=== PATIENT | male | born 1955 | race Caucasian/White ===

== ENCOUNTER 2018-07-30 16:18 | Emergency (ER) | payer OTHER ==
[2018-07-30 16:53] VITALS: BP 116/80; PULSE 92; TEMP 98.5; BMI 24.2
--- NOTE | 2018-07-30 19:10 | PDOC ---
Attending Attestation - Resident Resident Name: Daren Ford - ED Attending Attestation I have performed the following: I have examined & evaluated the patient, The case was reviewed & discussed with the resident, I agree w/resident's findings & plan, Exceptions are as noted - Medical Decision Making 07/30/18 19:10 I, Dr. Camille Burger, DO, attest that this document has been prepared under my direction and personally reviewed by me in its entirety. I further attest, that it accurately reflects all work, treatment, procedures and medical decision -making performed by me. 07/30/18 20:20 a/p: 62yo male with b/l calf pain-dx [address] rowe with a dvt- lower leg -worsening calf pain and leg pain -also with burn to the foot -out of his lyrica -sent by PMD for repeat duplex ultrasound to see if there was propogation of the clot 07/30/18 22:12 dvt study negative burn to L big toe also hx of neuropathy and out of lyrica at home will give silvadene topical for the toe- no infection will refill lyrica resident discussed the case with Dr. Wilson who agrees with [facility] plan pt is stable for dc to home <Camille Burger - Last Filed: 07/30/18 22:12> - HPI HPI: 07/30/18 20:51 Patient is a 62 year old male with a significant past medical history of diabetes, hypertension, hyperlipidemia, BPH, s/p cardiac stents, and cholecystectomy, who presents to the ED with complaints of right groin pain as well as left foot burn that occured 1 week ago. Patient reports spilling hot water on his left foot, causing second degree burning which he states he cleans with soap and water. He reports having cardiac stents placed x15 days ago at [facility]. Patient reports seeing primary care physician Dr. Wilson who advised he come into the ED for further evaluation for the left foot burning. Patient was diagnosed with DVT by Dr. Rowe bu treated with aspirin. Denies chest pain, sob. Denies nausea, vomiting. Denies dysuria, hematuria. Denies contact with sick individuals, out of state travelling. Denies any other symptoms. Allergies: Iodine Social history: No smoking. No alcohol. No illicit drugs. Surgical history:Cardiac stents PMD: Dr. Wilson - Physicial Exam PE: 07/30/18 20:51 Constitutional: Awake, alert, oriented. No acute distress. Head: Normocephalic. Atraumatic Eyes: PERRL. EOMI. Conjunctivae are not pale. ENT: Mucous membranes are moist and intact. Posterior pharynx without exudate or erythema. Uvula midline. Neck: Supple. Full ROM. No lymphadenopathy. Cardiovascular: Regular rate. Regular rhythm. S1, S2 regular. Distal pulses are 2+ and symmetric. Pulmonary/Chest: No evidence of respiratory distress. Clear to auscultation bilaterally No wheezing, rales or rhonchi. Abdominal: Soft and nondistended. There is no tenderness. No rebound, guarding or rigidity. No organomegaly. No palpable masses. Good bowel sounds. Groin: +Right groid ecchymosis. No bruits. No palpable aneurysm. Back: No CVA tenderness. Musculoskeletal: No edema. No cyanosis. No clubbing. Full range of motion in all extremities. No Calf tenderness. Radial/pedal pulses are intact and 2+ bilaterally Skin: +second degree Burn to left big toe. +healing. +No drainage. Skin is warm and dry. No petechiae. No purpura. Neurological: Alert and oriented to person, place, and time. Cranial nerves II -XII are grossly intact. Normal speech. Strength is grossly symmetric. No sensory deficits. Psychiatric: Good eye contact. Normal interaction, affect and behavior. <Ananda Omer - Last Filed: 07/30/18 22:15>
--- NOTE | 2018-07-30 19:32 | PDOC ---
History of Present Illness - General Chief Complaint: Burn Stated Complaint: Sent by PMD for left foot burn, groin pain Time Seen by Provider: 07/30/18 19:08 - History of Present Illness Initial Comments: The pt is a 62M w/ a history of T2DM, CAD s/p stents, HTN, and neuropathy, is also 15 days s/p stent placement at [facility] presents for evaluation of R groin pain and L foot burn that occurred 1 week ago. Pt tried to see [employer] who performed the procedure but was unable to do so because he stated the [employer] doesn't work there anymore. Saw Dr. Wilson today to recommended he proceed to ED for evaluation for L foot burn to hallux and dorsal surface of foot as well as R groin bruising. Pt reports bruising in R groin after cath which has been improving but continues to be painful and he notices a lump there. Denies wound drainage. L foot burn 1 week ago from hot water with shoe on. Has been washing daily with soap and water, dressing with Vaseline and gauze. Endorses history of BLE DVT Currently taking ASA and Plavix Was taking Lyrica for neuropathy but ran out and hasn't had it renewed Denies fevers/chills, chest pain, SOB, abdominal pain, N/V/C/D, dysuria 07/30/18 19:38 Past History - Past Medical History Allergies/Adverse Reactions: Allergies Allergy/AdvReac Type Severity Reaction Status Date / Time iodine Allergy Verified 07/30/18 16:53 Home Medications: Ambulatory Orders Atorvastatin Calcium 40 mg PO HS 03/09/15 Insulin (Levemir) [Levemir Flexpen -] 20 units SQ HS 03/09/15 Losartan Potassium [Cozaar] 50 mg PO DAILY 03/09/15 Sitagliptin Phos/Metformin HCl [Janumet 50-1,000 mg Tablet] 1 tab PO DAILY 03/09 Tamsulosin HCl [Flomax -] 0.4 mg PO DAILY 03/09/15 Clopidogrel Bisulfate [Plavix -] 75 mg PO DAILY 11/06/15 Cyclobenzaprine HCl [Flexeril -] 5 mg PO BID #10 tablet 11/06/15 Pregabalin [Lyrica -] 50 mg PO BID #28 capsule MDD 100 mg 03/20/19 Anemia: No Asthma: No Cancer: No Cardiac Disorders: Yes (stent 2018) COPD: No Diabetes: Yes Disorders: Yes (BPH) HTN: Yes Hypercholesterolemia: Yes - Surgical History Cardiac Surgery: Yes (stents) Cholecystectomy: Yes - Immunization History Td Vaccination: No - Suicide/Smoking/Psychosocial Hx Smoking Status: Yes Smoking History: Current every day smoker Have you smoked in the past 12 months: Yes Number of Cigarettes Smoked Daily: 20 Information on smoking cessation initiated: Yes 'Breaking Loose' booklet given: 03/09/15 Hx Alcohol Use: No Drug/Substance Use Hx: No Substance Use Type: None Hx Substance Use Treatment: No Review of Systems - Review of Systems Able to Perform ROS?: Yes Comments:: GENERAL/CONSTITUTIONAL: No fever or chills. No weakness HEAD, EYES, EARS, NOSE AND THROAT: No change in vision or hearing. No sore throat CARDIOVASCULAR: No chest pain or shortness of breath RESPIRATORY: Denies cough, hemoptysis GASTROINTESTINAL: No nausea, vomiting, diarrhea or constipation GENITOURINARY: No dysuria, frequency, or change in urination MUSCULOSKELETAL: +chronic BLE pain ('electric') NEUROLOGIC: No headache, vertigo, loss of consciousness, or change in strength/ sensation ENDOCRINE: No increased thirst. No abnormal weight change HEMATOLOGIC/LYMPHATIC: +hx of DVT ALLERGIC/IMMUNOLOGIC: No hives or skin allergy 07/30/18 20:00 Is the patient limited Romansh proficient: No *Physical Exam - Vital Signs Last Vital Signs Temp Pulse Resp BP Pulse Ox 98.5 F 92 H 19 116/80 100 07/30/18 16:51 07/30/18 16:51 07/30/18 16:51 07/30/18 16:51 07/30/18 16:51 - Physical Exam Comments: GENERAL: Awake, alert, and oriented to person/place/time, in no acute distress HEAD: No signs of trauma, normocephalic, atraumatic EYES: PERRLA, EOMI, sclera anicteric, conjunctiva clear ENT: Hearing grossly normal, nares patent, oropharynx clear without exudates. Moist mucosa LUNGS: No distress, speaks full sentences, clear to auscultation bilaterally HEART: Regular rate and rhythm, normal S1 and S2, no murmurs appreciated ABDOMEN: Soft, nontender, normoactive bowel sounds. No guarding, no rebound; R groin ecchymosis w/ palpable nodule w/o pusitile mass EXTREMITIES: L hallux and dorsum of food deep partial thickness burn w/ sensation to light touch intact; 1+ BLE DP/PT NEUROLOGICAL: Cranial nerves II through XII grossly intact. Normal speech, normal gait, no focal sensorimotor deficits SKIN: Warm, Dry, normal turgor, no rashes or lesions noted_ Pt ambulatory in ED 07/30/18 19:57 Moderate Sedation - Procedure Monitoring Vital Signs: Procedure Monitoring Vital Signs Temperature 98.5 F 07/30/18 16:51 Pulse Rate 92 H 07/30/18 16:51 Respiratory Rate 07/30/18 16:51 Blood Pressure 116/80 07/30/18 16:51 O2 Sat by Pulse Oximetry (%) 100 07/30/18 16:51 ED Treatment Course - LABORATORY CBC & Chemistry Diagram: 07/30/18 20:00 07/30/18 20:00 Medical Decision Making - Medical Decision Making The pt is a 62M w/ a history of T2DM, neuropathy, s/p stent placement and hx of DVT presents for evaluation of R groin pain and L foot deep partial thickness burn (<1% TBSA) Labs sent Will obtain BLE US Will dress wound with silvadene and kirlex 07/30/18 20:31 No anemia No leukocytosis No VIANNEY 07/30/18 21:27 BLE US w/o evidence of DVT 07/30/18 21:40 Wound dressed with Silvadene and kirlex Wound care instructions and return precautions given Plan for D/C w/ PCP f/u Pt in agreement and verbalized understanding Dispo: home 07/30/18 22:11 *DC/Admit/Observation/Transfer Diagnosis at time of Disposition: Burn - Discharge Dispostion Disposition: HOME Condition at time of disposition: Stable Decision to Admit order: No - Prescriptions Prescriptions: Pregabalin [Lyrica -] 50 mg PO BID #28 capsule MDD 100 mg - Referrals Referrals: Oh Noel MD [Primary Care Provider] - - Patient Instructions Printed Discharge Instructions: How to Take Care of a Burn Additional Instructions: You were seen in the Emergency Department for evaluation of groin pain and a burn. Your ultrasound was negative for DVT. Continue to wash the wound daily with soap and water. Pat dry. Apply the silvadene followed by gauze. Follow up with your primary care provider within a week. A prescription was sent to the pharmacy that you specified for Lyrica for 50mg PO twice a day. Return to the Emergency Department if you develop fevers/chills, drainage from the wound, acute change in sensation, chest pain, trouble breathing, worsening symptoms, or any new/concerning symptoms. - Post Discharge Activity
[2018-07-30] MEDS ORDERED: ACETAMINOPHEN 325 MG TABLET (FP) PO ONE (19:48)
[2018-07-30] MEDS ORDERED: ACETAMINOPHEN 325 MG TABLET (FP) ONE (19:52)
[2018-07-30 20:21] LABS: HEMATOCRIT 40.1 % (35.4-49); HEMOGLOBIN 13.5 GM/dL (11.7-16.9); MCH 28.4 pg (25.7-33.7); MCHC 33.7 g/dl (32.0-35.9); MEAN CELL VOLUME 84.4 fl (80-96); MEAN PLT VOLUME 11.2 fl (7.5-11.1); PLATELET COUNT 124 K/MM3 (134-434); RBC 4.75 M/mm3 (4.00-5.60); RDW 14.5 % (11.9-15.9); WHITE BLOOD COUNT 11.1 K/mm3 (4.0-10.0)
[2018-07-30 20:48] LABS: ALBUMIN 3.8 g/dl (3.4-5.0); ALK PHOS 85 U/L (45-117); ANION GAP 6 MMOL/L (8-16); BILIRUBIN,TOTAL 0.3 mg/dL (0.2-1); BLOOD UREA NITROGEN 16 mg/dL (7-18); CALCIUM 9.2 mg/dL (8.5-10.1); CHLORIDE 105 mmol/L (98-107); CO2 27 mmol/L (21-32); CREATININE 0.8 mg/dL (0.55-1.3); GLUCOSE,RANDOM 261 mg/dL (74-106); POTASSIUM 4.3 mmol/L (3.5-5.1); SGOT/AST 11 U/L (15-37); SGPT/ALT 18 U/L (13-61); SODIUM 138 mmol/L (136-145); TOT PROT 7.3 g/dl (6.4-8.2)
[2018-07-30] MEDS ORDERED: SILVER SULFADIAZINE 1% TOP CREAM 400 GM JAR TP ONE (21:41)
[2018-07-30] MEDS ORDERED: SILVER SULFADIAZINE 1% TOP CREAM 50 GM JAR TP ONE (21:43)
[2018-07-30] MEDS ORDERED: PREGABALIN 50 MG CAPSULE PO ONE (22:12)
[2018-07-30] MEDS ORDERED: PREGABALIN 50 MG CAPSULE ONE (22:13)
[2018-07-31] MEDS ORDERED: SILVER SULFADIAZINE 1% TOP CREAM 400 GM JAR TP ONE (21:41)
== END 2018-07-30 22:31 | disposition home or self-care (01) ==
LOC: JER 16:18
DX: K12.0 Recurrent oral aphthae (principal)
CPT/HCPCS: 36415; 80053; 85027; 93970-TC; 99281-25

== ENCOUNTER 2018-09-17 15:01 | Inpatient (IN) | payer OTHER ==
--- NOTE | 2018-09-17 15:13 | PDOC ---
Rapid Medical Evaluation Time Seen by Provider: 09/17/18 15:11 Medical Evaluation: Allergies Allergy/AdvReac Type Severity Reaction Status Date / Time iodine Allergy Verified 09/17/18 15:11 09/17/18 15:11 HPI:L foot pain snet by PCP for CTA of aorta with run off EXAM: No gross deficits ORDERS: CBC CMP PIV Discharge Disposition - Diagnosis Foot pain, left - Referrals - Patient Instructions - Post Discharge Activity
[2018-09-17 15:16] VITALS: BMI 24.0
[2018-09-17 16:31] LABS: BASO % 0.6 % (0-2.0); EOS % 0.4 % (0-4.5); HEMATOCRIT 42.8 % (35.4-49); HEMOGLOBIN 13.7 GM/dL (11.7-16.9); LYMPH % 34.9 % (8-40); MCH 26.8 pg (25.7-33.7); MCHC 31.9 g/dl (32.0-35.9); MEAN CELL VOLUME 83.9 fl (80-96); MEAN PLT VOLUME 10.8 fl (7.5-11.1); MONO % 9.3 % (3.8-10.2); NEUT % 54.8 % (42.8-82.8); PLATELET COUNT 93 K/MM3 (134-434); RDW 15.3 % (11.9-15.9); WHITE BLOOD COUNT 8.7 K/mm3 (4.0-10.0)
[2018-09-17 16:51] LABS: INR 1.02 (0.83-1.09)
[2018-09-17 16:53] LABS: ACTIVATED PTT 31.2 SECONDS (25.2-36.5)
[2018-09-17 17:16] LABS: ALK PHOS 78 U/L (45-117); ANION GAP 7 MMOL/L (8-16); BILIRUBIN,TOTAL 0.3 mg/dL (0.2-1); BLOOD UREA NITROGEN 13 mg/dL (7-18); CALCIUM 8.9 mg/dL (8.5-10.1); CHLORIDE 106 mmol/L (98-107); CO2 26 mmol/L (21-32); CREATININE 0.9 mg/dL (0.55-1.3); POTASSIUM 4.5 mmol/L (3.5-5.1); SGOT/AST 8 U/L (15-37); SGPT/ALT 22 U/L (13-61); SODIUM 138 mmol/L (136-145)
[2018-09-17 17:21] LABS: GLUCOSE,RANDOM 331 mg/dL (74-106)
--- NOTE | 2018-09-17 17:53 | PDOC ---
*Physical Exam - Vital Signs Last Vital Signs Temp Pulse Resp BP Pulse Ox 98.0 F 91 H 17 125/64 99 09/17/18 15:11 09/17/18 15:11 09/17/18 15:11 09/17/18 15:11 09/17/18 15:11 - Physical Exam Comments: 09/17/18 17:53 The patient was examined by [NINI Murdock] under my direct supervision. I personally evaluated the patient. I concur with the above findings and the plan of care. ED Treatment Course - LABORATORY CBC & Chemistry Diagram: 09/17/18 16:00 09/17/18 16:00 - ADDITIONAL ORDERS Additional order review: Laboratory Results 09/17/18 09/17/18 16:00 16:00 PT with INR 12.00 INR 1.02 PTT (Actin FS) 31.2 Sodium 138 Potassium 4.5 Chloride 106 Carbon Dioxide 26 Anion Gap 7 L BUN 13 Creatinine 0.9 Est GFR (CKD-EPI)AfAm 105.72 Est GFR (CKD-EPI)NonAf 91.22 Random Glucose 331 H* Calcium 8.9 Total Bilirubin 0.3 AST 8 L ALT 22 Alkaline Phosphatase 78 Creatine Kinase 91 Troponin I < 0.02 Total Protein 7.0 Albumin 4.0 09/17/18 16:00 RBC 5.10 MCV 83.9 MCHC 31.9 L RDW 15.3 MPV 10.8 Neutrophils % 54.8 Lymphocytes % 34.9 Monocytes % 9.3 Eosinophils % 0.4 Basophils % 0.6 *DC/Admit/Observation/Transfer Diagnosis at time of Disposition: Foot pain, left - Referrals Referrals: Oh Noel MD [Primary Care Provider] - - Patient Instructions - Post Discharge Activity
--- NOTE | 2018-09-17 18:32 | PDOC ---
History of Present Illness - General Chief Complaint: Pain Stated Complaint: SENT BY PCP / FOOT PAIN Time Seen by Provider: 09/17/18 15:11 History Source: Patient Exam Limitations: Clinical Condition - History of Present Illness Initial Comments: 09/17/18 18:27 Patient with h/o CAD, cardiac stent an pheripheral vascular disease present with complains of being sent by vascular Dr. Rhodes due to persistent b/l LE pains for 6 months which has been worsening. Patient report pain to whole b/l lower extremity. Patient was seen 2 months ago for same symptoms and b/l duplex was negative. Patient report increased pain to to LE and called Dr. Reyna yesterday who advised him to come to ED for admission. Patient report he was told by Dr. Reyna symptoms. Denies CP, SOB, dizziness, numbness or tinglings sensation. Timing/Duration: other (6 months) Past History - Past Medical History Allergies/Adverse Reactions: Allergies Allergy/AdvReac Type Severity Reaction Status Date / Time iodine Allergy Verified 09/17/18 15:11 Home Medications: Ambulatory Orders Atorvastatin Calcium 40 mg PO HS 03/09/15 Insulin (Levemir) [Levemir Flexpen -] 20 units SQ BID 03/09/15 Losartan Potassium [Cozaar] 50 mg PO DAILY 03/09/15 Sitagliptin Phos/Metformin HCl [Janumet 50-1,000 mg Tablet] 500 mg PO DAILY Tamsulosin HCl [Flomax -] 0.4 mg PO DAILY 03/09/15 Clopidogrel Bisulfate [Plavix -] 75 mg PO DAILY 11/06/15 Cyclobenzaprine HCl [Flexeril -] 5 mg PO BID #10 tablet 11/06/15 Pregabalin [Lyrica -] 50 mg PO BID #28 capsule MDD 100 mg 07/30/18 Anemia: No Asthma: No Cancer: No Cardiac Disorders: Yes (stent 2018) COPD: No Diabetes: Yes Disorders: Yes (BPH) HTN: Yes Hypercholesterolemia: Yes - Surgical History Cardiac Surgery: Yes (stents) Cholecystectomy: Yes - Immunization History Td Vaccination: No - Suicide/Smoking/Psychosocial Hx Smoking Status: Yes Smoking History: Current every day smoker Have you smoked in the past 12 months: Yes Number of Cigarettes Smoked Daily: 10 Information on smoking cessation initiated: No 'Breaking Loose' booklet given: 03/09/15 Hx Alcohol Use: No Drug/Substance Use Hx: No Substance Use Type: None Hx Substance Use Treatment: No Review of Systems - Review of Systems Able to Perform ROS?: Yes Is the patient limited Mosotho proficient: No Constitutional: No: Chills, Fever, Night Sweats HEENTM: No: Symptoms Reported, See HPI, Eye Pain, Blurred Vision, Tearing, Recent change in vision, Double Vision, Cataracts, Ear Pain, Ocular Prothesis, Ear Discharge, Nose Pain, Nose Congestion, Tinnitus, Nose Bleeding, Hearing Loss , Throat Pain, Throat Swelling, Mouth Pain, Dental Problems, Difficulty Swallowing, Mouth Swelling, Other Respiratory: No: Symptoms reported, See HPI, Cough, Orthopnea, Shortness of Breath, SOB with Exertion, SOB at Rest, Stridor, Wheezing, Productive cough, Hemoptysis, Other Cardiac (ROS): No: Symptoms Reported, See HPI, Chest Pain, Edema, Irregular Heart Rate, Lightheadedness, Palpitations, Syncope, Chest Tightness, Other ABD/GI: No: Symptoms Reported : No: Symptoms Reported Musculoskeletal: Yes: Symptoms Reported, See HPI, Muscle Pain (b/l LE pains). No: Joint Swelling, Muscle Weakness (b/l LE extremities) Integumentary: Yes: Symptoms Reported, See HPI, Change in Color (redness to b/l feet . LT>rt) Neurological: No: Numbness, Paresthesia, Tingling All Other Systems: Reviewed and Negative *Physical Exam - Vital Signs Last Vital Signs Temp Pulse Resp BP Pulse Ox 98.0 F 91 H 17 125/64 99 09/17/18 15:11 09/17/18 15:11 09/17/18 15:11 09/17/18 15:11 09/17/18 15:11 - Physical Exam General Appearance: Yes: Nourished, Appropriately Dressed, Mild Distress HEENT: positive: Normal ENT Inspection Neck: positive: Supple Respiratory/Chest: positive: Lungs Clear, Normal Breath Sounds. negative: Respiratory Distress, Accessory Muscle Use Cardiovascular: positive: Regular Rhythm, Regular Rate Musculoskeletal: positive: Normal Inspection, Muscle Spasm (whole lower extremity tenderness on b/l side) Extremity: positive: Pedal Edema (mild left foot swelling), Calf Tenderness (b/l ). negative: Swelling Integumentary: positive: Erythema (b/l feet with increased redness to left feet) Neurologic: positive: Fully Oriented, Alert, Motor Strength 5/5 Deep Tendon Reflexes: Ankle (L): 2+, Ankle (R): 2+, Knee (L): 2+, Knee (R): 2+ ED Treatment Course - LABORATORY CBC & Chemistry Diagram: 09/17/18 16:00 09/17/18 16:00 - ADDITIONAL ORDERS Additional order review: Laboratory Results 09/17/18 09/17/18 16:00 16:00 PT with INR 12.00 INR 1.02 PTT (Actin FS) 31.2 Sodium 138 Potassium 4.5 Chloride 106 Carbon Dioxide 26 Anion Gap 7 L BUN 13 Creatinine 0.9 Est GFR (CKD-EPI)AfAm 105.72 Est GFR (CKD-EPI)NonAf 91.22 Random Glucose 331 H* Calcium 8.9 Total Bilirubin 0.3 AST 8 L ALT 22 Alkaline Phosphatase 78 Creatine Kinase 91 Troponin I < 0.02 Total Protein 7.0 Albumin 4.0 09/17/18 16:00 RBC 5.10 MCV 83.9 MCHC 31.9 L RDW 15.3 MPV 10.8 Neutrophils % 54.8 Lymphocytes % 34.9 Monocytes % 9.3 Eosinophils % 0.4 Basophils % 0.6 Medical Decision Making - Medical Decision Making 09/17/18 18:35 Patient with h/o CAD, cardiac stent an pheripheral vascular disease present with complains of being sent by vascular Dr. Rhodes due to persistent b/l LE pains for 6 months which has been worsening. Patient report pain to whole b/l lower extremity. Patient was seen 2 months ago for same symptoms and b/l duplex was negative. Patient report increased pain to to LE and called Dr. Reyna yesterday who advised him to come to ED for admission. Patient report he was told by Dr. Reyna symptoms. Denies CP, SOB, dizziness, numbness or tinglings sensation. Exam significant for moderate subjective diffused pain to whole b/l lower extremities. barely palpable pulse to dorsalis pedis b/l. called and spoke to vascular Dr. Reyna who report patient has been having worsening b/l claudication for 6 months with no palpable pulse during clinic visit yesterday and wants patient admitted for Abc CTA of Aorta with B/L LE run off. Called covering admitting provider for Dr. Noel who is being covered by Dr. Wilson who agrees to admit patient under her for CTA. *DC/Admit/Observation/Transfer Diagnosis at time of Disposition: Foot pain, left, Diabetes 1.5, managed as type 2, Claudication of both lower extremities - Discharge Dispostion Condition at time of disposition: Stable Decision to Admit order: Yes - Referrals Referrals: Oh Noel MD [Primary Care Provider] - - Patient Instructions - Post Discharge Activity
[2018-09-17] MEDS ORDERED: ACETAMINOPHEN 1000 MG/100 ML VIAL (NON FORMULARY) IVPB ONE (19:48)
[2018-09-17] MEDS ORDERED: ACETAMINOPHEN INJECTION 100 ML IVPB ONE (19:52)
[2018-09-17] MEDS ORDERED: PREGABALIN 50 MG CAPSULE ONE (22:02)
[2018-09-17] MEDS ORDERED: ATORVASTATIN CA 40 MG TABLET (FP) ONE (22:02)
[2018-09-17] MEDS ORDERED: HEPARIN NA (PORCINE) 5,000 UNITS/ML 1ML VIAL ONE (22:03)
[2018-09-17] MEDS ORDERED: INSULIN (LEVEMIR) 100 UNITS/ML UNITS SQ ONE (22:09)
[2018-09-17] MEDS ORDERED: INSULIN (NOVOLOG) ASPART 100 UNITS/ML 10ML VIAL ONE (22:10)
[2018-09-17] MEDS: HEPARIN NA (PORCINE) 5,000 UNITS/ML 1ML VIAL SQ SCH (22:18)
[2018-09-17] MEDS: INSULIN (LEVEMIR) 100 UNITS/ML UNITS SQ SCH (22:18)
[2018-09-17] MEDS: INSULIN SLIDING SCALE (NOVOLOG) 1 VIAL SQ SCH (22:18)
[2018-09-17] MEDS: ATORVASTATIN CA 40 MG TABLET (FP) PO SCH (22:18)
[2018-09-17] MEDS: PREGABALIN 50 MG CAPSULE PO SCH (22:18)
[2018-09-18] MEDS ORDERED: sitaGLIPtin PHOSPHATE 50 MG TABLET ONE (06:18)
[2018-09-18] MEDS ORDERED: metFORMIN HCL 500 MG TABLET (FP) ONE (06:18)
[2018-09-18] MEDS ORDERED: INSULIN (LEVEMIR) 100 UNITS/ML UNITS SQ ONE (06:29)
[2018-09-18] MEDS ORDERED: INSULIN (NOVOLOG) ASPART 100 UNITS/ML 10ML VIAL ONE ×2 (06:29→11:59)
[2018-09-18] MEDS: sitaGLIPtin PHOSPHATE 100 MG TABLET (FP) PO SCH (06:37)
[2018-09-18] MEDS: INSULIN SLIDING SCALE (NOVOLOG) 1 VIAL SQ SCH ×4 (06:37→21:19)
[2018-09-18] MEDS: metFORMIN HCL 500 MG TABLET (FP) PO SCH ×3 (06:37→17:41)
[2018-09-18] MEDS: INSULIN (LEVEMIR) 100 UNITS/ML UNITS SQ SCH ×2 (06:37→21:20)
[2018-09-18 07:16] LABS: BASO % 0.6 % (0-2.0); EOS % 1.1 % (0-4.5); HEMATOCRIT 39.9 % (35.4-49); HEMOGLOBIN 13.1 GM/dL (11.7-16.9); LYMPH % 39.3 % (8-40); MCH 27.2 pg (25.7-33.7); MCHC 32.9 g/dl (32.0-35.9); MEAN CELL VOLUME 82.8 fl (80-96); MEAN PLT VOLUME 10.6 fl (7.5-11.1); MONO % 10.2 % (3.8-10.2); NEUT % 48.8 % (42.8-82.8); PLATELET COUNT 117 K/MM3 (134-434); RBC 4.82 M/mm3 (4.00-5.60); RDW 15.2 % (11.9-15.9); WHITE BLOOD COUNT 7.8 K/mm3 (4.0-10.0)
[2018-09-18 07:42] LABS: ALBUMIN 3.7 g/dl (3.4-5.0); BILIRUBIN,TOTAL 0.3 mg/dL (0.2-1); CALCIUM 8.5 mg/dL (8.5-10.1); CREATININE 0.8 mg/dL (0.55-1.3); POTASSIUM 3.9 mmol/L (3.5-5.1); TOT PROT 6.4 g/dl (6.4-8.2)
[2018-09-18] MEDS: TAMSULOSIN HCL 0.4 MG CAP PO SCH (09:52)
[2018-09-18] MEDS: LOSARTAN POTASSIUM 50 MG TABLET (FP) PO SCH (10:00)
[2018-09-18] MEDS: HEPARIN NA (PORCINE) 5,000 UNITS/ML 1ML VIAL SQ SCH ×2 (10:00→21:22)
[2018-09-18] MEDS: CLOPIDOGREL BISULFATE 75 MG TABLET (FP) PO SCH (10:00)
[2018-09-18] MEDS ORDERED: PREGABALIN 50 MG CAPSULE ONE (10:02)
--- NOTE | 2018-09-18 16:01 | HP ---
Admitting History and Physical - Past Medical History Cardiovascular: Yes: CAD, HTN Endocrine: Yes: Diabetes Mellitus - Smoking History Smoking history: Current every day smoker Have you smoked in the past 12 months: Yes Aproximately how many cigarettes per day: 10 - Alcohol/Substance Use Hx Alcohol Use: No - Social History ADL: Independent History of Recent Travel: No Home Medications - Allergies Allergies/Adverse Reactions: Allergies Allergy/AdvReac Type Severity Reaction Status Date / Time iodine Allergy Verified 09/17/18 15:11 - Home Medications Home Medications: Ambulatory Orders Atorvastatin Calcium 40 mg PO HS 03/09/15 Insulin (Levemir) [Levemir Flexpen -] 20 units SQ BID 03/09/15 Losartan Potassium [Cozaar] 50 mg PO DAILY 03/09/15 Sitagliptin Phos/Metformin HCl [Janumet 50-1,000 mg Tablet] 500 mg PO DAILY Tamsulosin HCl [Flomax -] 0.4 mg PO DAILY 03/09/15 Clopidogrel Bisulfate [Plavix -] 75 mg PO DAILY 11/06/15 Cyclobenzaprine HCl [Flexeril -] 5 mg PO BID #10 tablet 11/06/15 Pregabalin [Lyrica -] 50 mg PO BID #28 capsule MDD 100 mg 07/30/18 Physical Examination Vital Signs: Vital Signs Temperature 98.2 F 09/18/18 13:49 Pulse Rate 76 09/18/18 13:49 Respiratory Rate 17 09/18/18 13:49 Blood Pressure 94/41 L 09/18/18 13:49 O2 Sat by Pulse Oximetry (%) 100 09/18/18 09:00 Labs: CBC, BMP 09/18/18 06:20 09/18/18 06:20
--- NOTE | 2018-09-18 17:16 | EKG ---
Test Reason : Blood Pressure : / mmHG Vent. Rate : 072 BPM Atrial Rate : 072 BPM P-R Int : 150 ms QRS Dur : 102 ms QT Int : 394 ms P-R-T Axes : 073 089 075 degrees QTc Int : 431 ms NORMAL SINUS RHYTHM NORMAL ECG WHEN COMPARED WITH ECG OF 19-APR-2009 08:26, NO SIGNIFICANT CHANGE WAS FOUND Confirmed by JOYCE JASON MD ([id number]) on 09/18/2018 5:15:41 PM Referred By: Confirmed By:JOYCE JASON MD
[2018-09-18] MEDS: ATORVASTATIN CA 40 MG TABLET (FP) PO SCH (21:21)
[2018-09-18] MEDS: PREGABALIN 50 MG CAPSULE PO SCH (21:21)
[2018-09-19] MEDS: INSULIN SLIDING SCALE (NOVOLOG) 1 VIAL SQ SCH ×4 (06:07→21:26)
[2018-09-19] MEDS: sitaGLIPtin PHOSPHATE 100 MG TABLET (FP) PO SCH (06:08)
[2018-09-19] MEDS: INSULIN (LEVEMIR) 100 UNITS/ML UNITS SQ SCH ×2 (06:08→21:26)
[2018-09-19] MEDS: metFORMIN HCL 500 MG TABLET (FP) PO SCH ×2 (06:23→17:22)
[2018-09-19] MEDS ORDERED: INSULIN (NOVOLOG) ASPART 100 UNITS/ML 10ML VIAL ONE ×2 (06:50→21:22)
[2018-09-19] MEDS ORDERED: INSULIN (LEVEMIR) 100 UNITS/ML UNITS SQ ONE (06:50)
[2018-09-19] MEDS: LOSARTAN POTASSIUM 50 MG TABLET (FP) PO SCH (10:24)
[2018-09-19] MEDS: CLOPIDOGREL BISULFATE 75 MG TABLET (FP) PO SCH (10:24)
[2018-09-19] MEDS: PREGABALIN 50 MG CAPSULE PO SCH ×2 (10:25→21:27)
[2018-09-19] MEDS: TAMSULOSIN HCL 0.4 MG CAP PO SCH (10:25)
[2018-09-19] MEDS: HEPARIN NA (PORCINE) 5,000 UNITS/ML 1ML VIAL SQ SCH ×2 (10:25→21:26)
[2018-09-19] MEDS: ATORVASTATIN CA 40 MG TABLET (FP) PO SCH (21:27)
--- NOTE | 2018-09-19 23:13 | PN ---
Progress Note, Physician - Current Medication List Current Medications: Active Medications Atorvastatin Calcium (Lipitor -) 40 mg PO HS [facility] Last Admin: 09/19/18 21:27 Dose: 40 mg Clopidogrel Bisulfate (Plavix -) 75 mg PO DAILY [facility] Last Admin: 09/19/18 10:24 Dose: 75 mg Heparin Sodium (Porcine) (Heparin -) 5,000 unit SQ BID [facility] Last Admin: 09/19/18 21:26 Dose: 5,000 unit Insulin Aspart (Novolog Vial Sliding Scale -) 1 vial SQ [facility]; Protocol Last Admin: 09/19/18 21:26 Dose: 2 units Insulin Detemir (Levemir Vial) 20 units SQ BID@0700,2200 [facility] Last Admin: 09/19/18 21:26 Dose: 20 units Losartan Potassium (Cozaar -) 50 mg PO DAILY [facility] Last Admin: 09/19/18 10:24 Dose: 50 mg Metformin HCl (Glucophage -) 1,000 mg PO BID@0700,1630 [facility] Last Admin: 09/19/18 17:22 Dose: Not Given Pregabalin (Lyrica -) 50 mg PO BID [facility] Last Admin: 09/19/18 21:27 Dose: 50 mg Sitagliptin Phosphate (Januvia -) 100 mg PO DAILY@0700 [facility] Last Admin: 09/19/18 06:08 Dose: 100 mg Tamsulosin HCl (Flomax -) 0.4 mg PO DAILY@0830 [facility] Last Admin: 09/19/18 10:25 Dose: 0.4 mg - Objective Vital Signs: Vital Signs Temperature 97.2 F L 09/19/18 18:00 Pulse Rate 76 09/19/18 18:00 Respiratory Rate 20 09/19/18 18:00 Blood Pressure 142/60 09/19/18 18:00 O2 Sat by Pulse Oximetry (%) 100 09/18/18 21:00 Labs: CBC, BMP 09/18/18 06:20 09/18/18 06:20 INR, PTT INR 1.02 (0.83-1.09) 09/17/18 16:00
[2018-09-20] MEDS: traMADol HCL 50 MG TABLET PO PRN ×2 (05:28→16:50)
[2018-09-20] MEDS: sitaGLIPtin PHOSPHATE 100 MG TABLET (FP) PO SCH (06:08)
[2018-09-20] MEDS: metFORMIN HCL 500 MG TABLET (FP) PO SCH ×2 (06:08→16:47)
[2018-09-20] MEDS: INSULIN (LEVEMIR) 100 UNITS/ML UNITS SQ SCH ×2 (06:18→21:32)
[2018-09-20] MEDS: INSULIN SLIDING SCALE (NOVOLOG) 1 VIAL SQ SCH ×4 (06:19→21:37)
[2018-09-20 08:01] LABS: BASO % 0.8 % (0-2.0); EOS % 0.7 % (0-4.5); HEMATOCRIT 41.8 % (35.4-49); HEMOGLOBIN 13.3 GM/dL (11.7-16.9); LYMPH % 28.3 % (8-40); MCH 26.8 pg (25.7-33.7); MCHC 31.9 g/dl (32.0-35.9); MEAN CELL VOLUME 84.2 fl (80-96); MEAN PLT VOLUME 11.3 fl (7.5-11.1); MONO % 11.2 % (3.8-10.2); PLATELET COUNT 92 K/MM3 (134-434); RBC 4.96 M/mm3 (4.00-5.60); RDW 15.1 % (11.9-15.9); WHITE BLOOD COUNT 7.7 K/mm3 (4.0-10.0)
[2018-09-20 08:11] LABS: ALBUMIN 3.7 g/dl (3.4-5.0); BILIRUBIN,TOTAL 0.3 mg/dL (0.2-1); CALCIUM 9.1 mg/dL (8.5-10.1); CREATININE 0.9 mg/dL (0.55-1.3); POTASSIUM 4.4 mmol/L (3.5-5.1); TOT PROT 6.6 g/dl (6.4-8.2)
[2018-09-20] MEDS: TAMSULOSIN HCL 0.4 MG CAP PO SCH (09:17)
[2018-09-20] MEDS: HEPARIN NA (PORCINE) 5,000 UNITS/ML 1ML VIAL SQ SCH ×2 (09:17→21:32)
[2018-09-20] MEDS: CLOPIDOGREL BISULFATE 75 MG TABLET (FP) PO SCH (09:17)
[2018-09-20] MEDS: LOSARTAN POTASSIUM 50 MG TABLET (FP) PO SCH (09:17)
[2018-09-20] MEDS: PREGABALIN 50 MG CAPSULE PO SCH ×2 (09:17→21:32)
--- NOTE | 2018-09-20 21:11 | PN ---
Progress Note, Physician - Current Medication List Current Medications: Active Medications Atorvastatin Calcium (Lipitor -) 40 mg PO HS [facility] Last Admin: 09/19/18 21:27 Dose: 40 mg Clopidogrel Bisulfate (Plavix -) 75 mg PO DAILY [facility] Last Admin: 09/20/18 09:17 Dose: 75 mg Heparin Sodium (Porcine) (Heparin -) 5,000 unit SQ BID [facility] Last Admin: 09/20/18 09:17 Dose: 5,000 unit Insulin Aspart (Novolog Vial Sliding Scale -) 1 vial SQ [facility]; Protocol Last Admin: 09/20/18 16:48 Dose: 4 units Insulin Detemir (Levemir Vial) 20 units SQ BID@0700,2200 [facility] Last Admin: 09/20/18 06:18 Dose: 20 units Losartan Potassium (Cozaar -) 50 mg PO DAILY [facility] Last Admin: 09/20/18 09:17 Dose: 50 mg Metformin HCl (Glucophage -) 1,000 mg PO BID@0700,1630 [facility] Last Admin: 09/20/18 16:47 Dose: 1,000 mg Pregabalin (Lyrica -) 50 mg PO BID [facility] Last Admin: 09/20/18 09:17 Dose: 50 mg Sitagliptin Phosphate (Januvia -) 100 mg PO DAILY@0700 [facility] Last Admin: 09/20/18 06:08 Dose: 100 mg Tamsulosin HCl (Flomax -) 0.4 mg PO DAILY@0830 [facility] Last Admin: 09/20/18 09:17 Dose: 0.4 mg Tramadol HCl (Ultram -) 50 mg PO Q8H PRN PRN Reason: pain Last Admin: 09/20/18 16:50 Dose: 50 mg - Objective Vital Signs: Vital Signs Temperature 99.0 F 09/20/18 18:03 Pulse Rate 84 09/20/18 18:03 Respiratory Rate 20 09/20/18 18:03 Blood Pressure 145/74 09/20/18 18:03 O2 Sat by Pulse Oximetry (%) 100 09/19/18 21:00 Labs: CBC, BMP 09/20/18 06:00 09/20/18 06:00 INR, PTT INR 1.02 (0.83-1.09) 09/17/18 16:00
[2018-09-20] MEDS: ATORVASTATIN CA 40 MG TABLET (FP) PO SCH (21:32)
[2018-09-21] MEDS: traMADol HCL 50 MG TABLET PO PRN ×2 (00:43→20:07)
[2018-09-21] MEDS: sitaGLIPtin PHOSPHATE 100 MG TABLET (FP) PO SCH (06:18)
[2018-09-21] MEDS: INSULIN (LEVEMIR) 100 UNITS/ML UNITS SQ SCH ×2 (06:18→22:16)
[2018-09-21] MEDS: metFORMIN HCL 500 MG TABLET (FP) PO SCH ×2 (06:18→16:47)
[2018-09-21] MEDS: INSULIN SLIDING SCALE (NOVOLOG) 1 VIAL SQ SCH ×4 (06:22→22:21)
[2018-09-21] MEDS ORDERED: INSULIN (NOVOLOG) ASPART 100 UNITS/ML 10ML VIAL ONE ×2 (06:50→22:12)
[2018-09-21] MEDS ORDERED: INSULIN (LEVEMIR) 100 UNITS/ML UNITS SQ ONE (06:50)
[2018-09-21] MEDS: TAMSULOSIN HCL 0.4 MG CAP PO SCH (07:49)
[2018-09-21] MEDS: CLOPIDOGREL BISULFATE 75 MG TABLET (FP) PO SCH (11:06)
[2018-09-21] MEDS: HEPARIN NA (PORCINE) 5,000 UNITS/ML 1ML VIAL SQ SCH ×2 (11:06→22:15)
[2018-09-21] MEDS: LOSARTAN POTASSIUM 50 MG TABLET (FP) PO SCH (11:06)
[2018-09-21] MEDS: PREGABALIN 50 MG CAPSULE PO SCH ×2 (11:07→22:14)
--- NOTE | 2018-09-21 11:07 | PN ---
Progress Note (short form) - Note Progress Note: Vascular Surgery Pt seen and examined. Pt with left lower extremity claudication Pt has a 40 year smoking history 1ppd. CTA reviewed. Shows left Common iliac and external iliac high grade stenosis. Will need angiogram. Please cont plavix. Please clear from a cardiology standpoint for angiogram, angioplasty and stent. Joaquim Reyna DO
--- NOTE | 2018-09-21 13:05 | CON.CARD ---
Cardiology Consult (text) - Consultation Consultation Note: cc: leg pain hpi: 63 m hx cad s/p multiple pci's (no [place], done for angina sxs, most recent 2018 per pt, at [facility]), PAD with le claudication, dm, hld, htn, tob use, here with worsening claudication. Plans for le angioplasty with Vascular. No cp, sob palps dizzy loc pnd orthopnea, le edema. Sees dr gilbert for cardio. pmh: per hpi psh: pci social: +tob fam: no scd, premature cad ros: per hpi; all others normal meds: Home Medications Medication Instructions Recorded Atorvastatin Calcium 40 mg PO HS 03/09/15 Insulin (Levemir) [Levemir Flexpen 20 units SQ BID 03/09/15 -] Losartan Potassium [Cozaar] 50 mg PO DAILY 03/09/15 Sitagliptin Phos/Metformin HCl 500 mg PO DAILY 03/09/15 [Janumet 50-1,000 mg Tablet] Tamsulosin HCl [Flomax -] 0.4 mg PO DAILY 03/09/15 Clopidogrel Bisulfate [Plavix -] 75 mg PO DAILY 11/06/15 Cyclobenzaprine HCl [Flexeril -] 5 mg PO BID #10 tablet 11/06/15 Pregabalin [Lyrica -] 50 mg PO BID #28 capsule MDD 100 mg 07/30/18 pe: Vital Signs Period Temp Pulse Resp BP Sys/Hunt Pulse Ox Last 24 Hr 98 F-99.0 F 76-92 18-20 108-145/52-74 nad no jvd rrr s1s2 no mrg cta bl nl eff aao3 no le e/c/c abd nt nd pos bs no jaundice diaphoresis pos dp pt no carotid bruits Laboratory Last Values WBC 7.7 K/mm3 (4.0-10.0) 09/20/18 06:00 RBC 4.96 M/mm3 (4.00-5.60) 09/20/18 06:00 Hgb 13.3 GM/dL (11.7-16.9) 09/20/18 06:00 Hct 41.8 % (35.4-49) 09/20/18 06:00 MCV 84.2 fl (80-96) 09/20/18 06:00 MCH 26.8 pg (25.7-33.7) 09/20/18 06:00 MCHC 31.9 g/dl (32.0-35.9) L 09/20/18 06:00 RDW 15.1 % (11.9-15.9) 09/20/18 06:00 Plt Count 92 K/MM3 (134-434) L D 09/20/18 06:00 MPV 11.3 fl (7.5-11.1) H 09/20/18 06:00 Absolute Neuts (auto) 4.5 K/mm3 (1.5-8.0) 09/20/18 06:00 Neutrophils % 59.0 % (42.8-82.8) D 09/20/18 06:00 Lymphocytes % 28.3 % (8-40) D 09/20/18 06:00 Monocytes % 11.2 % (3.8-10.2) H 09/20/18 06:00 Eosinophils % 0.7 % (0-4.5) 09/20/18 06:00 Basophils % 0.8 % (0-2.0) 09/20/18 06:00 Nucleated RBC % 0 % (0-0) 09/20/18 06:00 PT with INR 12.00 SEC (9.7-13.0) 09/17/18 16:00 INR 1.02 (0.83-1.09) 09/17/18 16:00 PTT (Actin FS) 31.2 SECONDS (25.2-36.5) 09/17/18 16:00 Sodium 139 mmol/L (136-145) 09/20/18 06:00 Potassium 4.4 mmol/L (3.5-5.1) 09/20/18 06:00 Chloride 106 mmol/L (98-107) 09/20/18 06:00 Carbon Dioxide 28 mmol/L (21-32) 09/20/18 06:00 Anion Gap 5 MMOL/L (8-16) L 09/20/18 06:00 BUN 16 mg/dL (7-18) 09/20/18 06:00 Creatinine 0.9 mg/dL (0.55-1.3) 09/20/18 06:00 Est GFR (CKD-EPI)AfAm 104.98 09/20/18 06:00 Est GFR (CKD-EPI)NonAf 90.58 09/20/18 06:00 POC Glucometer 132 UNITS (80-120) 09/21/18 11:12 Random Glucose 182 mg/dL (74-106) H 09/20/18 06:00 Calcium 9.1 mg/dL (8.5-10.1) 09/20/18 06:00 Total Bilirubin 0.3 mg/dL (0.2-1) 09/20/18 06:00 AST 9 U/L (15-37) L 09/20/18 06:00 ALT 20 U/L (13-61) 09/20/18 06:00 Alkaline Phosphatase 81 U/L (45-117) 09/20/18 06:00 Creatine Kinase 91 U/L (26-308) 09/17/18 16:00 Troponin I < 0.02 ng/ml (0.00-0.05) 09/17/18 16:00 Total Protein 6.6 g/dl (6.4-8.2) 09/20/18 06:00 Albumin 3.7 g/dl (3.4-5.0) 09/20/18 06:00 ecg: sr nl intervals, no ischemic changes cxr: clear lungs a/p: 63 m hx cad s/p multiple pci's (no [place], done for angina sxs, most recent 2018 per pt, at [facility]), PAD with le claudication, dm, hld, htn, tob use, here with worsening claudication. cad s/p multiple pci's: -stable, no anginal sxs since last pci 06/2018 -cont asa and plavix given recent pci -cont statin PAD: -vascular following, plans for le angioplasty/stenting, no cardiac contraindications to this procedure hld: -cont statin htn: -cont arb tob use: -recently quit, continued cessation discussed
[2018-09-21] MEDS: ASPIRIN 81 MG CHEWABLE TABLETS PO SCH (14:23)
[2018-09-21] MEDS: ATORVASTATIN CA 40 MG TABLET (FP) PO SCH (22:14)
--- NOTE | 2018-09-21 23:13 | PN ---
Progress Note, Physician History of Present Illness: Pt still w/ claudication(pain on minimal ambulation) - Current Medication List Current Medications: Active Medications Aspirin (Asa -) 81 mg PO DAILY [facility] Last Admin: 09/21/18 14:23 Dose: 81 mg Atorvastatin Calcium (Lipitor -) 40 mg PO HS [facility] Last Admin: 09/21/18 22:14 Dose: 40 mg Clopidogrel Bisulfate (Plavix -) 75 mg PO DAILY [facility] Last Admin: 09/21/18 11:06 Dose: 75 mg Heparin Sodium (Porcine) (Heparin -) 5,000 unit SQ BID [facility] Last Admin: 09/21/18 22:15 Dose: 5,000 unit Insulin Aspart (Novolog Vial Sliding Scale -) 1 vial SQ [facility]; Protocol Last Admin: 09/21/18 22:21 Dose: 2 units Insulin Detemir (Levemir Vial) 20 units SQ BID@0700,2200 [facility] Last Admin: 09/21/18 22:16 Dose: 20 units Losartan Potassium (Cozaar -) 50 mg PO DAILY [facility] Last Admin: 09/21/18 11:06 Dose: 50 mg Metformin HCl (Glucophage -) 1,000 mg PO BID@0700,1630 [facility] Last Admin: 09/21/18 16:47 Dose: 1,000 mg Pregabalin (Lyrica -) 50 mg PO BID [facility] Last Admin: 09/21/18 22:14 Dose: 50 mg Sitagliptin Phosphate (Januvia -) 100 mg PO DAILY@0700 [facility] Last Admin: 09/21/18 06:18 Dose: 100 mg Tamsulosin HCl (Flomax -) 0.4 mg PO DAILY@0830 [facility] Last Admin: 09/21/18 07:49 Dose: 0.4 mg Tramadol HCl (Ultram -) 50 mg PO Q8H PRN PRN Reason: pain Last Admin: 09/21/18 20:07 Dose: 50 mg - Objective Vital Signs: Vital Signs Temperature 98.8 F 09/21/18 17:47 Pulse Rate 83 09/21/18 17:47 Respiratory Rate 18 09/21/18 17:47 Blood Pressure 117/63 09/21/18 17:47 O2 Sat by Pulse Oximetry (%) 100 09/19/18 21:00 HENT: Yes: WNL Neck: Yes: WNL, Supple Cardiovascular: Yes: WNL, Regular Rate and Rhythm Respiratory: Yes: WNL, Regular, CTA Bilaterally Gastrointestinal: Yes: WNL, Normal Bowel Sounds, Soft Edema: No Labs: CBC, BMP 09/20/18 06:00 09/20/18 06:00 INR, PTT INR 1.02 (0.83-1.09) 09/17/18 16:00 Problem List - Problems (1) PAD (peripheral artery disease) Assessment/Plan: Pt w/ high grade stenosis LLE common and external iliac Pt scheduled for LLE angiogram/angioplasty in am Pt medically cleared for procedure Tramadol prn pain Cont plavix Long d/w pt about need for tobacco cessation Code(s): I73.9 - PERIPHERAL VASCULAR DISEASE, UNSPECIFIED (2) Diabetes Assessment/Plan: Cont sliding scale w/ coverage Cont kathiuvia Will hold metformin due to procedure Code(s): E11.9 - TYPE 2 DIABETES MELLITUS WITHOUT COMPLICATIONS (3) Coronary artery disease Assessment/Plan: Cont asa/plavix H/O coronary stents Code(s): I25.10 - ATHSCL HEART DISEASE OF [place] CORONARY ARTERY W/O ANG PCTRS Qualifiers: Coronary Disease-Associated Artery/Lesion type: [place] artery [place] vs. transplanted heart: [place] heart Associated angina: without angina Qualified Code(s): I25.10 - Atherosclerotic heart disease of [place] coronary artery without angina pectoris (4) Hypertension Assessment/Plan: BP stable Cont losartan Code(s): I10 - ESSENTIAL (PRIMARY) HYPERTENSION (5) HLD (hyperlipidemia) Assessment/Plan: Cont lipitor Code(s): E78.5 - HYPERLIPIDEMIA, UNSPECIFIED (6) BPH (benign prostatic hyperplasia) Assessment/Plan: Cont flomax Code(s): N40.0 - BENIGN PROSTATIC HYPERPLASIA WITHOUT LOWER URINRY TRACT SYMP
[2018-09-22] MEDS: INSULIN SLIDING SCALE (NOVOLOG) 1 VIAL SQ SCH ×4 (06:22→21:26)
[2018-09-22] MEDS: metFORMIN HCL 500 MG TABLET (FP) PO SCH ×2 (06:22→16:32)
[2018-09-22] MEDS: sitaGLIPtin PHOSPHATE 100 MG TABLET (FP) PO SCH (06:22)
[2018-09-22 06:23] LABS: BASO % 0.7 % (0-2.0); EOS % 0.9 % (0-4.5); HEMATOCRIT 39.6 % (35.4-49); LYMPH % 32.5 % (8-40); MCH 27.2 pg (25.7-33.7); MCHC 32.7 g/dl (32.0-35.9); MEAN CELL VOLUME 83.1 fl (80-96); MEAN PLT VOLUME 10.8 fl (7.5-11.1); MONO % 11.3 % (3.8-10.2); NEUT % 54.6 % (42.8-82.8); PLATELET COUNT 100 K/MM3 (134-434); RBC 4.76 M/mm3 (4.00-5.60); RDW 14.7 % (11.9-15.9); WHITE BLOOD COUNT 7.7 K/mm3 (4.0-10.0)
[2018-09-22] MEDS: INSULIN (LEVEMIR) 100 UNITS/ML UNITS SQ SCH ×2 (06:23→21:26)
[2018-09-22 06:51] LABS: ALBUMIN 3.2 g/dl (3.4-5.0); BILIRUBIN,TOTAL 0.3 mg/dL (0.2-1); CALCIUM 8.8 mg/dL (8.5-10.1); CREATININE 0.6 mg/dL (0.55-1.3); POTASSIUM 4.3 mmol/L (3.5-5.1); TOT PROT 6.1 g/dl (6.4-8.2)
[2018-09-22] MEDS: LOSARTAN POTASSIUM 50 MG TABLET (FP) PO SCH (09:39)
[2018-09-22] MEDS: TAMSULOSIN HCL 0.4 MG CAP PO SCH (09:40)
[2018-09-22] MEDS: traMADol HCL 50 MG TABLET PO PRN ×2 (09:40→21:28)
[2018-09-22] MEDS: CLOPIDOGREL BISULFATE 75 MG TABLET (FP) PO SCH (09:41)
[2018-09-22] MEDS: HEPARIN NA (PORCINE) 5,000 UNITS/ML 1ML VIAL SQ SCH ×2 (09:41→21:25)
[2018-09-22] MEDS: PREGABALIN 50 MG CAPSULE PO SCH ×2 (09:41→21:25)
[2018-09-22] MEDS: ASPIRIN 81 MG CHEWABLE TABLETS PO SCH (09:43)
--- NOTE | 2018-09-22 15:34 | PN ---
Progress Note (short form) - Note Progress Note: Vascular Surgery Pt for angiogram [place]. Cleared by cardiology NPO past midnight Joaquim Reyna dO
--- NOTE | 2018-09-22 16:00 | PN ---
Progress Note (short form) - Note Progress Note: s: complains of pain in foot and both legs. No chest pain, palps, dizziness Current Medications Aspirin (Asa -) 81 mg PO DAILY [facility] Last Admin: 09/22/18 09:43 Dose: 81 mg Atorvastatin Calcium (Lipitor -) 40 mg PO HS [facility] Last Admin: 09/21/18 22:14 Dose: 40 mg Clopidogrel Bisulfate (Plavix -) 75 mg PO DAILY [facility] Last Admin: 09/22/18 09:41 Dose: 75 mg Heparin Sodium (Porcine) (Heparin -) 5,000 unit SQ BID [facility] Last Admin: 09/22/18 09:41 Dose: 5,000 unit Insulin Aspart (Novolog Vial Sliding Scale -) 1 vial SQ [facility]; Protocol Last Admin: 09/22/18 11:19 Dose: Not Given Insulin Detemir (Levemir Vial) 20 units SQ BID@0700,2200 [facility] Last Admin: 09/22/18 06:23 Dose: 20 units Losartan Potassium (Cozaar -) 50 mg PO DAILY [facility] Last Admin: 09/22/18 09:39 Dose: 50 mg Metformin HCl (Glucophage -) 1,000 mg PO BID@0700,1630 [facility] Last Admin: 09/22/18 06:22 Dose: 1,000 mg Pregabalin (Lyrica -) 50 mg PO BID [facility] Last Admin: 09/22/18 09:41 Dose: 50 mg Sitagliptin Phosphate (Januvia -) 100 mg PO DAILY@0700 [facility] Last Admin: 09/22/18 06:22 Dose: 100 mg Tamsulosin HCl (Flomax -) 0.4 mg PO DAILY@0830 [facility] Last Admin: 09/22/18 09:40 Dose: 0.4 mg Tramadol HCl (Ultram -) 50 mg PO Q8H PRN PRN Reason: pain Last Admin: 09/22/18 09:40 Dose: 50 mg Vital Signs Period Temp Pulse Resp BP Sys/Hunt Pulse Ox Last 24 Hr 97.7 F-98.8 F 78-87 18-18 117-139/47-70 95 nad no jvd rrr s1s2 no mrg cta bl nl eff aao3 no le e/c/c abd nt nd pos bs no jaundice diaphoresis pos dp pt no carotid bruits ecg: sr nl intervals, no ischemic changes cxr: clear lungs a/p: 63 m hx cad s/p multiple pci's (no [place], done for angina sxs, most recent 2018 per pt, at [facility]), PAD with le claudication, dm, hld, htn, tob use, here with worsening claudication. cad s/p multiple pci's: -stable, no anginal sxs since last pci 06/2018 -cont asa and plavix given recent pci -cont statin PAD: -vascular following, plans for le angioplasty/stenting, no cardiac contraindications to this procedure hld: -cont statin htn: -cont arb tob use: -recently quit, continued cessation discussed
[2018-09-22] MEDS ORDERED: INSULIN (NOVOLOG) ASPART 100 UNITS/ML 10ML VIAL ONE (21:20)
[2018-09-22] MEDS: ATORVASTATIN CA 40 MG TABLET (FP) PO SCH (21:26)
--- NOTE | 2018-09-22 22:55 | PN ---
Progress Note, Physician - Current Medication List Current Medications: Active Medications Aspirin (Asa -) 81 mg PO DAILY [facility] Last Admin: 09/22/18 09:43 Dose: 81 mg Atorvastatin Calcium (Lipitor -) 40 mg PO HS [facility] Last Admin: 09/22/18 21:26 Dose: 40 mg Clopidogrel Bisulfate (Plavix -) 75 mg PO DAILY [facility] Last Admin: 09/22/18 09:41 Dose: 75 mg Heparin Sodium (Porcine) (Heparin -) 5,000 unit SQ BID [facility] Last Admin: 09/22/18 21:25 Dose: 5,000 unit Insulin Aspart (Novolog Vial Sliding Scale -) 1 vial SQ [facility]; Protocol Last Admin: 09/22/18 21:26 Dose: 2 units Insulin Detemir (Levemir Vial) 20 units SQ BID@0700,2200 [facility] Last Admin: 09/22/18 21:26 Dose: 20 units Losartan Potassium (Cozaar -) 50 mg PO DAILY [facility] Last Admin: 09/22/18 09:39 Dose: 50 mg Metformin HCl (Glucophage -) 1,000 mg PO BID@0700,1630 [facility] Last Admin: 09/22/18 16:32 Dose: 1,000 mg Pregabalin (Lyrica -) 50 mg PO BID [facility] Last Admin: 09/22/18 21:25 Dose: 50 mg Sitagliptin Phosphate (Januvia -) 100 mg PO DAILY@0700 [facility] Last Admin: 09/22/18 06:22 Dose: 100 mg Tamsulosin HCl (Flomax -) 0.4 mg PO DAILY@0830 [facility] Last Admin: 09/22/18 09:40 Dose: 0.4 mg Tramadol HCl (Ultram -) 50 mg PO Q8H PRN PRN Reason: pain Last Admin: 09/22/18 21:28 Dose: 50 mg - Objective Vital Signs: Vital Signs Temperature 98.7 F 09/22/18 20:25 Pulse Rate 79 09/22/18 20:25 Respiratory Rate 20 09/22/18 20:25 Blood Pressure 109/61 09/22/18 20:25 O2 Sat by Pulse Oximetry (%) 95 09/22/18 09:00 Labs: CBC, BMP 09/22/18 05:15 09/22/18 05:15 INR, PTT INR 1.02 (0.83-1.09) 09/17/18 16:00 Problem List - Problems (1) PAD (peripheral artery disease) Code(s): I73.9 - PERIPHERAL VASCULAR DISEASE, UNSPECIFIED (2) Diabetes Code(s): E11.9 - TYPE 2 DIABETES MELLITUS WITHOUT COMPLICATIONS (3) Coronary artery disease Code(s): I25.10 - ATHSCL HEART DISEASE OF [place] CORONARY ARTERY W/O ANG PCTRS Qualifiers: Coronary Disease-Associated Artery/Lesion type: [place] artery [place] vs. transplanted heart: [place] heart Associated angina: without angina Qualified Code(s): I25.10 - Atherosclerotic heart disease of [place] coronary artery without angina pectoris (4) Hypertension Code(s): I10 - ESSENTIAL (PRIMARY) HYPERTENSION (5) HLD (hyperlipidemia) Code(s): E78.5 - HYPERLIPIDEMIA, UNSPECIFIED (6) BPH (benign prostatic hyperplasia) Code(s): N40.0 - BENIGN PROSTATIC HYPERPLASIA WITHOUT LOWER URINRY TRACT SYMP
[2018-09-23] MEDS: metFORMIN HCL 500 MG TABLET (FP) PO SCH ×2 (06:03→16:19)
[2018-09-23] MEDS: sitaGLIPtin PHOSPHATE 100 MG TABLET (FP) PO SCH (06:03)
[2018-09-23] MEDS: INSULIN (LEVEMIR) 100 UNITS/ML UNITS SQ SCH ×2 (06:04→21:38)
[2018-09-23] MEDS: INSULIN SLIDING SCALE (NOVOLOG) 1 VIAL SQ SCH ×4 (06:04→21:39)
[2018-09-23] MEDS: TAMSULOSIN HCL 0.4 MG CAP PO SCH (08:59)
[2018-09-23] MEDS: traMADol HCL 50 MG TABLET PO PRN (08:59)
[2018-09-23] MEDS: LOSARTAN POTASSIUM 50 MG TABLET (FP) PO SCH (08:59)
[2018-09-23] MEDS: CLOPIDOGREL BISULFATE 75 MG TABLET (FP) PO SCH (09:02)
[2018-09-23] MEDS: HEPARIN NA (PORCINE) 5,000 UNITS/ML 1ML VIAL SQ SCH ×2 (09:02→21:39)
[2018-09-23] MEDS: ASPIRIN 81 MG CHEWABLE TABLETS PO SCH (09:02)
[2018-09-23] MEDS: PREGABALIN 50 MG CAPSULE PO SCH ×2 (09:04→21:38)
--- NOTE | 2018-09-23 15:12 | PN ---
Progress Note (short form) - Note Progress Note: s: complains of pain in foot and both legs. No chest pain, palps, dizziness Current Medications Generic Name Dose Route Start Last Admin Trade Name Freq PRN Reason Stop Dose Admin Aspirin 81 mg 09/21/18 13:00 09/23/18 09:02 Asa - PO Not Given DAILY [facility] Atorvastatin Calcium 40 mg 09/17/18 22:00 09/22/18 21:26 Lipitor - PO 40 mg HS T[facility] Administration Clopidogrel Bisulfate 75 mg 09/18/18 10:00 09/23/18 09:02 Plavix - PO Not Given DAILY [facility] Heparin Sodium (Porcine) 5,000 unit 09/17/18 22:00 09/23/18 09:02 Heparin - SQ Not Given BID [facility] Insulin Aspart 1 vial 09/17/18 22:00 09/23/18 11:35 Novolog Vial Sliding Scale - SQ Not Given ACHS [facility] Protocol Insulin Detemir 20 units 09/17/18 22:00 09/23/18 06:04 Levemir Vial SQ Not Given BID@0700,2200 [facility] Losartan Potassium 50 mg 09/18/18 10:00 09/23/18 08:59 Cozaar - PO 50 mg DAILY [facility] Administration Metformin HCl 1,000 mg 09/18/18 07:00 09/23/18 06:03 Glucophage - PO Not Given BID@0700,1630 [facility] Pregabalin 50 mg 09/17/18 22:00 09/23/18 09:04 Lyrica - PO 50 mg BID [facility] Administration Sitagliptin Phosphate 100 mg 09/18/18 07:00 09/23/18 06:03 Januvia - PO Not Given DAILY@0700 [facility] Tamsulosin HCl 0.4 mg 09/18/18 08:30 09/23/18 08:59 Flomax - PO 0.4 mg DAILY@0830 [facility] Administration Tramadol HCl 50 mg 09/19/18 23:30 09/23/18 08:59 Ultram - PO 50 mg Q8H PRN Administration pain Vital Signs Period Temp Pulse Resp BP Sys/Hunt Pulse Ox Last 24 Hr 98.1 F-98.7 F 79-84 18-20 109-125/58-66 95-96 nad no jvd rrr s1s2 no mrg cta bl nl eff aao3 no le e/c/c abd nt nd pos bs no jaundice diaphoresis ecg: sr nl intervals, no ischemic changes cxr: clear lungs a/p: 63 m hx cad s/p multiple pci's (no [place], done for angina sxs, most recent 2018 per pt, at [facility]), PAD with le claudication, dm, hld, htn, tob use, here with worsening claudication. cad s/p multiple pci's: -stable, no anginal sxs since last pci 06/2018 -cont asa and plavix given recent pci -cont statin PAD: -vascular following, plans for le angioplasty/stenting, no cardiac contraindications to this procedure hld: -cont statin htn: -cont arb tob use: -recently quit, continued cessation discussed
[2018-09-23] MEDS ORDERED: LIDOCAINE HCL 1%, 10 MG/ML (20ML VIAL) ONE ×2 (16:45→18:08)
[2018-09-23] MEDS ORDERED: HEPARIN NA (PORCINE) 5,000 UNITS/ML 1ML VIAL ONE ×2 (16:45→18:30)
[2018-09-23] MEDS ORDERED: ONDANSETRON 4 MG/2 ML VIAL IVPUSH PRN ×2 (17:54→19:32)
[2018-09-23] MEDS ORDERED: LACTATED RINGERS SOLUTION 1,000 ML IV SCH ×2 (18:00→19:32)
[2018-09-23] MEDS ORDERED: PROPOFOL 20 ML ONE ×2 (18:00)
[2018-09-23] MEDS ORDERED: MIDAZOLAM HCL 2 MG/2 ML SINGLE DOSE VIAL ONE (18:00)
[2018-09-23] MEDS ORDERED: ceFAZolin SODIUM 1 GM VIAL IVPB ONE (18:20)
--- NOTE | 2018-09-23 19:03 | OP ---
Operative Note - Note: Operative Date: 09/23/18 Pre-Operative Diagnosis: LLE claudication Operation: Aortogram, Left iliac artery angiogram, Left iliac artery angioplasty with covered stent Findings: Left iliac artery occlusion Post-Operative Diagnosis: Same as Pre-op Surgeon: Joaquim Reyna Anesthesia: Fractional Estimated Blood Loss (mls): 20 Operative Report Dictated: Yes
[2018-09-23] MEDS ORDERED: INSULIN (NOVOLOG) ASPART 100 UNITS/ML 10ML VIAL ONE (21:11)
[2018-09-23] MEDS: ATORVASTATIN CA 40 MG TABLET (FP) PO SCH (21:37)
--- NOTE | 2018-09-23 21:37 | PN ---
Progress Note, Physician History of Present Illness: Pt tolerated procedure - Current Medication List Current Medications: Active Medications Aspirin (Asa -) 81 mg PO DAILY [facility] Atorvastatin Calcium (Lipitor -) 40 mg PO HS [facility] Clopidogrel Bisulfate (Plavix -) 75 mg PO DAILY [facility] Heparin Sodium (Porcine) (Heparin -) 5,000 unit SQ BID [facility] Lactated Ringer's (Lactated Ringers Solution) 1,000 mls @ 75 mls/hr IV ASDIR [facility] Insulin Aspart (Novolog Vial Sliding Scale -) 1 vial SQ [facility]; Protocol Insulin Detemir (Levemir Vial) 20 units SQ BID@0700,2200 [facility] Losartan Potassium (Cozaar -) 50 mg PO DAILY [facility] Metformin HCl (Glucophage -) 1,000 mg PO BID@0700,1630 [facility] Pregabalin (Lyrica -) 50 mg PO BID [facility] Sitagliptin Phosphate (Januvia -) 100 mg PO DAILY@0700 [facility] Tamsulosin HCl (Flomax -) 0.4 mg PO DAILY@0830 [facility] Tramadol HCl (Ultram -) 50 mg PO Q8H PRN PRN Reason: pain - Objective Vital Signs: Vital Signs Temperature 97.8 F 09/23/18 20:30 Pulse Rate 80 09/23/18 20:30 Respiratory Rate 18 09/23/18 20:30 Blood Pressure 138/62 09/23/18 20:30 O2 Sat by Pulse Oximetry (%) 100 09/23/18 20:15 Neck: Yes: WNL, Supple Cardiovascular: Yes: WNL, Regular Rate and Rhythm Respiratory: Yes: WNL, Regular, CTA Bilaterally Gastrointestinal: Yes: WNL, Normal Bowel Sounds, Soft Extremities: Yes: Other (LLE w/ dressings) Labs: CBC, BMP 09/22/18 05:15 09/22/18 05:15 INR, PTT INR 1.02 (0.83-1.09) 09/17/18 16:00 Problem List - Problems (1) PAD (peripheral artery disease) Assessment/Plan: Pt w/ high grade stenosis LLE common and external iliac S/P LLE iliac angioplasty w/ stent placement Tramadol prn pain Cont plavix Code(s): I73.9 - PERIPHERAL VASCULAR DISEASE, UNSPECIFIED (2) Diabetes Assessment/Plan: Cont sliding scale w/ coverage Cont januvia Will restart metformin Code(s): E11.9 - TYPE 2 DIABETES MELLITUS WITHOUT COMPLICATIONS (3) Coronary artery disease Assessment/Plan: Cont asa/plavix H/O coronary stents Code(s): I25.10 - ATHSCL HEART DISEASE OF [place] CORONARY ARTERY W/O ANG PCTRS Qualifiers: Coronary Disease-Associated Artery/Lesion type: [place] artery [place] vs. transplanted heart: [place] heart Associated angina: without angina Qualified Code(s): I25.10 - Atherosclerotic heart disease of [place] coronary artery without angina pectoris (4) Hypertension Assessment/Plan: BP stable Cont losartan Code(s): I10 - ESSENTIAL (PRIMARY) HYPERTENSION (5) HLD (hyperlipidemia) Assessment/Plan: Cont lipitor Code(s): E78.5 - HYPERLIPIDEMIA, UNSPECIFIED (6) BPH (benign prostatic hyperplasia) Assessment/Plan: Cont flomax Code(s): N40.0 - BENIGN PROSTATIC HYPERPLASIA WITHOUT LOWER URINRY TRACT SYMP
[2018-09-24] MEDS: traMADol HCL 50 MG TABLET PO PRN ×2 (04:51→21:35)
[2018-09-24] MEDS: metFORMIN HCL 500 MG TABLET (FP) PO SCH ×2 (06:21→17:02)
[2018-09-24] MEDS: INSULIN SLIDING SCALE (NOVOLOG) 1 VIAL SQ SCH ×4 (06:22→21:36)
[2018-09-24] MEDS: sitaGLIPtin PHOSPHATE 100 MG TABLET (FP) PO SCH (06:22)
[2018-09-24] MEDS: INSULIN (LEVEMIR) 100 UNITS/ML UNITS SQ SCH ×2 (06:26→21:35)
[2018-09-24 06:51] LABS: BASO % 0.7 % (0-2.0); EOS % 0.7 % (0-4.5); HEMATOCRIT 37.2 % (35.4-49); LYMPH % 22.4 % (8-40); MCH 26.9 pg (25.7-33.7); MCHC 32.3 g/dl (32.0-35.9); MEAN CELL VOLUME 83.1 fl (80-96); NEUT % 63.2 % (42.8-82.8); PLATELET COUNT 104 K/MM3 (134-434); RBC 4.47 M/mm3 (4.00-5.60); RDW 14.6 % (11.9-15.9); WHITE BLOOD COUNT 8.4 K/mm3 (4.0-10.0)
[2018-09-24] MEDS ORDERED: INSULIN (NOVOLOG) ASPART 100 UNITS/ML 10ML VIAL ONE (07:03)
[2018-09-24 07:59] LABS: BILIRUBIN,TOTAL 0.3 mg/dL (0.2-1); CALCIUM 8.6 mg/dL (8.5-10.1); CREATININE 0.6 mg/dL (0.55-1.3); POTASSIUM 4.2 mmol/L (3.5-5.1); TOT PROT 5.8 g/dl (6.4-8.2)
[2018-09-24] MEDS: PREGABALIN 50 MG CAPSULE PO SCH ×2 (09:51→21:37)
[2018-09-24] MEDS: HEPARIN NA (PORCINE) 5,000 UNITS/ML 1ML VIAL SQ SCH ×2 (09:52→21:35)
[2018-09-24] MEDS: TAMSULOSIN HCL 0.4 MG CAP PO SCH (09:52)
[2018-09-24] MEDS ORDERED: LOSARTAN POTASSIUM 50 MG TABLET (FP) PO SCH (10:00)
[2018-09-24] MEDS ORDERED: ASPIRIN 81 MG CHEWABLE TABLETS PO SCH (10:00)
[2018-09-24] MEDS ORDERED: CLOPIDOGREL BISULFATE 75 MG TABLET (FP) PO SCH (10:00)
--- NOTE | 2018-09-24 10:47 | PN ---
Progress Note (short form) - Note Progress Note: Anesthesia Pt seen and examined S:Alert and awake Comfortable O: Vital Signs Temperature 99.0 F 09/24/18 05:33 Pulse Rate 85 09/24/18 05:33 Respiratory Rate 20 09/24/18 05:33 Blood Pressure 126/61 09/24/18 05:33 O2 Sat by Pulse Oximetry (%) 97 09/23/18 22:00 CBC, BMP 09/24/18 06:00 09/24/18 06:00 A/P: Current Active Problems Claudication of both lower extremities (Acute) Diabetes (Acute) Diabetes 1.5, managed as type 2 (Acute) Foot pain, left (Acute) HLD (hyperlipidemia) (Acute) PAD (peripheral artery disease) (Acute) S/P:angio angioplasty Doing well post op Continue current care Paco Savage MD
--- NOTE | 2018-09-24 14:27 | PN ---
Progress Note (short form) - Note Progress Note: 63yo M s/p Lt leg angio, pt seen and examined at bedside. Pt complains of some mild Lt groin pain. Denies foot pain/weakness/numbness. No acute events overnight. Last Vital Signs Temp Pulse Resp BP Pulse Ox 99.0 F 85 20 126/61 98 09/24/18 05:33 09/24/18 05:33 09/24/18 05:33 09/24/18 05:33 09/24/18 09:00 CBC, BMP 09/24/18 06:00 09/24/18 06:00 PE: Gen: A&O x3 Resp: breathing comfortably LLE: groin incision is clean with no erythema or discharge, no pulsatile masses. Foot is warm and pink, no edema Problem List - Problems (1) PAD (peripheral artery disease) Assessment/Plan: Plan -pt appears to be doing well, no further vascular intervention at this time. Continue aspirin and plavix -pt should follow up with Dr. Reyna as an outpatient in 2 weeks. -emphasized continued smoking cessation. Code(s): I73.9 - PERIPHERAL VASCULAR DISEASE, UNSPECIFIED
--- NOTE | 2018-09-24 14:52 | PN ---
Progress Note, Physician Chief Complaint: No CP or SOB - Current Medication List Current Medications: Active Medications Aspirin (Asa -) 81 mg PO DAILY [facility] Last Admin: 09/24/18 09:52 Dose: 81 mg Atorvastatin Calcium (Lipitor -) 40 mg PO HS [facility] Last Admin: 09/23/18 21:37 Dose: 40 mg Clopidogrel Bisulfate (Plavix -) 75 mg PO DAILY [facility] Last Admin: 09/24/18 09:51 Dose: 75 mg Heparin Sodium (Porcine) (Heparin -) 5,000 unit SQ BID [facility] Last Admin: 09/24/18 09:52 Dose: 5,000 unit Lactated Ringer's (Lactated Ringers Solution) 1,000 mls @ 75 mls/hr IV ASDIR [facility] Last Admin: 09/23/18 21:38 Dose: 75 mls/hr Insulin Aspart (Novolog Vial Sliding Scale -) 1 vial SQ [facility]; Protocol Last Admin: 09/24/18 11:46 Dose: Not Given Insulin Detemir (Levemir Vial) 20 units SQ BID@0700,2200 [facility] Last Admin: 09/24/18 06:26 Dose: 20 units Losartan Potassium (Cozaar -) 50 mg PO DAILY [facility] Last Admin: 09/24/18 09:52 Dose: 50 mg Metformin HCl (Glucophage -) 1,000 mg PO BID@0700,1630 [facility] Last Admin: 09/24/18 06:21 Dose: Not Given Pregabalin (Lyrica -) 50 mg PO BID [facility] Last Admin: 09/24/18 09:51 Dose: 50 mg Sitagliptin Phosphate (Januvia -) 100 mg PO DAILY@0700 [facility] Last Admin: 09/24/18 06:22 Dose: Not Given Tamsulosin HCl (Flomax -) 0.4 mg PO DAILY@0830 [facility] Last Admin: 09/24/18 09:52 Dose: 0.4 mg Tramadol HCl (Ultram -) 50 mg PO Q8H PRN PRN Reason: pain Last Admin: 09/24/18 04:51 Dose: 50 mg - Objective Vital Signs: Vital Signs Temperature 99.0 F 09/24/18 05:33 Pulse Rate 85 09/24/18 05:33 Respiratory Rate 20 09/24/18 05:33 Blood Pressure 126/61 09/24/18 05:33 O2 Sat by Pulse Oximetry (%) 98 09/24/18 09:00 Constitutional: Yes: No Distress, Calm Eyes: Yes: Conjunctiva Clear Cardiovascular: Yes: Regular Rate and Rhythm Respiratory: Yes: CTA Bilaterally Gastrointestinal: Yes: Soft Edema: No Neurological: Yes: Alert, Oriented Labs: CBC, BMP 09/24/18 06:00 09/24/18 06:00 INR, PTT INR 1.02 (0.83-1.09) 09/17/18 16:00 Laboratory Tests 09/24/18 09/24/18 06:00 06:00 WBC 8.4 Hgb 12.0 Plt Count 104 L Sodium 138 Potassium 4.2 BUN 20 H Creatinine 0.6 Assessment/Plan Assessment: 63 m hx cad s/p multiple pci's (no [facility], done for angina sxs, most recent 06/2018 per pt, at [facility]), PAD with le claudication, dm, hld, htn, tob use, here with worsening claudication. 1. CAD s/p multiple pci's: -stable, no anginal sxs since last pci 06/2018 -cont asa and plavix given recent pci -cont statin 2. PAD: Left iliac artery angioplasty with covered stent -vascular following, continue ASA, Plavix, statin 3. HLD: -cont statin 4.HTN: -cont arb 5. TOB use: -recently quit, continued cessation discussed
[2018-09-24] MEDS ORDERED: PT OWN MED DRAWER 7, Y5N ONE (19:09)
[2018-09-24] MEDS: ATORVASTATIN CA 40 MG TABLET (FP) PO SCH (21:35)
--- NOTE | 2018-09-24 22:02 | PN ---
Progress Note, Physician - Current Medication List Current Medications: Active Medications Aspirin (Asa -) 81 mg PO DAILY [facility] Last Admin: 09/24/18 09:52 Dose: 81 mg Atorvastatin Calcium (Lipitor -) 40 mg PO HS [facility] Last Admin: 09/24/18 21:35 Dose: 40 mg Clopidogrel Bisulfate (Plavix -) 75 mg PO DAILY [facility] Last Admin: 09/24/18 09:51 Dose: 75 mg Heparin Sodium (Porcine) (Heparin -) 5,000 unit SQ BID [facility] Last Admin: 09/24/18 21:35 Dose: 5,000 unit Insulin Aspart (Novolog Vial Sliding Scale -) 1 vial SQ [facility]; Protocol Last Admin: 09/24/18 21:36 Dose: Not Given Insulin Detemir (Levemir Vial) 20 units SQ BID@0700,2200 [facility] Last Admin: 09/24/18 21:35 Dose: 20 units Losartan Potassium (Cozaar -) 50 mg PO DAILY [facility] Last Admin: 09/24/18 09:52 Dose: 50 mg Metformin HCl (Glucophage -) 1,000 mg PO BID@0700,1630 [facility] Last Admin: 09/24/18 17:02 Dose: Not Given Pregabalin (Lyrica -) 50 mg PO BID [facility] Last Admin: 09/24/18 21:37 Dose: 50 mg Sitagliptin Phosphate (Januvia -) 100 mg PO DAILY@0700 [facility] Last Admin: 09/24/18 06:22 Dose: Not Given Tamsulosin HCl (Flomax -) 0.4 mg PO DAILY@0830 [facility] Last Admin: 09/24/18 09:52 Dose: 0.4 mg Tramadol HCl (Ultram -) 50 mg PO Q8H PRN PRN Reason: pain Last Admin: 09/24/18 21:35 Dose: 50 mg - Objective Vital Signs: Vital Signs Temperature 99.0 F 09/24/18 05:33 Pulse Rate 85 09/24/18 05:33 Respiratory Rate 20 09/24/18 05:33 Blood Pressure 126/61 09/24/18 05:33 O2 Sat by Pulse Oximetry (%) 98 09/24/18 09:00 Labs: CBC, BMP 09/24/18 06:00 09/24/18 06:00 INR, PTT INR 1.02 (0.83-1.09) 09/17/18 16:00 Problem List - Problems (1) PAD (peripheral artery disease) Code(s): I73.9 - PERIPHERAL VASCULAR DISEASE, UNSPECIFIED (2) Diabetes Code(s): E11.9 - TYPE 2 DIABETES MELLITUS WITHOUT COMPLICATIONS (3) Coronary artery disease Code(s): I25.10 - ATHSCL HEART DISEASE OF [place] CORONARY ARTERY W/O ANG PCTRS Qualifiers: Coronary Disease-Associated Artery/Lesion type: [place] artery [place] vs. transplanted heart: [place] heart Associated angina: without angina Qualified Code(s): I25.10 - Atherosclerotic heart disease of [place] coronary artery without angina pectoris (4) Hypertension Code(s): I10 - ESSENTIAL (PRIMARY) HYPERTENSION (5) HLD (hyperlipidemia) Code(s): E78.5 - HYPERLIPIDEMIA, UNSPECIFIED (6) BPH (benign prostatic hyperplasia) Code(s): N40.0 - BENIGN PROSTATIC HYPERPLASIA WITHOUT LOWER URINRY TRACT SYMP
[2018-09-25] MEDS: metFORMIN HCL 500 MG TABLET (FP) PO SCH (06:07)
[2018-09-25] MEDS: sitaGLIPtin PHOSPHATE 100 MG TABLET (FP) PO SCH (06:08)
[2018-09-25] MEDS: INSULIN (LEVEMIR) 100 UNITS/ML UNITS SQ SCH (06:09)
[2018-09-25] MEDS: INSULIN SLIDING SCALE (NOVOLOG) 1 VIAL SQ SCH (06:09)
[2018-09-25] MEDS ORDERED: INSULIN (NOVOLOG) ASPART 100 UNITS/ML 10ML VIAL ONE (06:16)
[2018-09-25] MEDS: TAMSULOSIN HCL 0.4 MG CAP PO SCH (07:48)
[2018-09-25 08:03] VITALS: BP 115/65; PULSE 90; TEMP 99.1
--- NOTE | 2018-09-25 18:22 | OP ---
DATE OF OPERATION: 09/23/2018 PREOPERATIVE DIAGNOSIS: Left lower extremity claudication. POSTOPERATIVE DIAGNOSIS: Left lower extremity claudication. PROCEDURE: Aortogram, left iliac artery angiogram, left iliac artery angioplasty with placement. SURGEON: Joaquim Florentino M.D. ANESTHESIA: Fractional. BLOOD LOSS: 20 mL. INDICATION: The patient is a 63-year-old male that has been a longtime smoker and diabetic, that complains of left lower extremity claudication. 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 The patient was consented for the procedure after patient was cleared by medicine and cardiology. Patient was consented for the procedure, understanding all risks, benefits, and alternatives, and taken to the operating room. DESCRIPTION OF PROCEDURE: Once in the operating room, she was laid on the operating table in a supine manner, and the area of the left and right groin are prepped and draped in a sterile surgical manner. Under ultrasound guidance we visualized the left common femoral artery, and 10 mL of lidocaine 1% was injected there. We then under ultrasound guidance used our Micropuncture needle and punctured the left common femoral artery. A Micropuncture wire was inserted, Micropuncture sheath was inserted, and a short 7-[place] sheath was inserted. 5000 units of IV heparin were administered to the patient. We then used our 0.035 stiff guidewire and brought it up to the iliac artery and found that the external to common iliac artery were occluded. Using a Quick-Cross catheter, we were able to selectively cross the lesion and place our wire into the aorta. We then brought our Quick-Cross catheter up and shot an aortogram showing that the common iliac and external iliac artery were indeed occluded. At this point, we were intraluminal. At this point, we then went ahead and used a Lifestream stent, 7 x 5/8, and we were able to cover the common iliac, external iliac artery occlusion, and we were able to inflate the balloon stent. After implanting the stent, we shot a completion angiogram from the aorta showing that the common and external iliac artery were patent. There was a good femoral pulse in the left groin, and there was no recoil. At this point, we deployed the deployed the StarClose device successfully in the left common femoral artery. Pressure was held for 5 minutes, after which there was no more bleeding. Areas were then dried and Dermabond was placed. Patient tolerated the procedure without complications. Patient was transferred to PACU in stable condition. Total blood loss 20 mL. JOAQUIM FLORENTINO DO [id number]
== END 2018-09-25 08:10 | disposition home or self-care (01) | DRG 253 ==
LOC: JER 15:01 → JERBED 19:43 → J6S 09-18 10:24
PROVIDERS: ADMIT Internal Medicine; ATTEND Internal Medicine
PROC: 047L3ZZ Dilation of Left Femoral Artery, Percutaneous Approach (ICD-10-PCS; 2018-09-23)
PROC: 047J3ZZ Dilation of Left External Iliac Artery, Percutaneous Approach (ICD-10-PCS; 2018-09-23)
PROC: 3E033GC Introduction of Other Therapeutic Substance into Peripheral Vein, Percutaneous Approach (ICD-10-PCS; 2018-09-23)
PROC: B40GYZZ Plain Radiography of Left Lower Extremity Arteries using Other Contrast (ICD-10-PCS; 2018-09-23)
PROC: 047D3DZ Dilation of Left Common Iliac Artery with Intraluminal Device, Percutaneous Approach (ICD-10-PCS; principal; 2018-09-23 17:00)
DX: I70.212 Atherosclerosis of native arteries of extremities with intermittent claudication, left leg (principal); I70.92 Chronic total occlusion of artery of the extremities; I10 Essential (primary) hypertension; E11.9 Type 2 diabetes mellitus without complications; Z79.84 Long term (current) use of oral hypoglycemic drugs; Z79.4 Long term (current) use of insulin; E78.5 Hyperlipidemia, unspecified; I25.10 Atherosclerotic heart disease of native coronary artery without angina pectoris; Z95.5 Presence of coronary angioplasty implant and graft; N40.0 Benign prostatic hyperplasia without lower urinary tract symptoms; Z87.891 Personal history of nicotine dependence
CPT/HCPCS: 36415; 71045-TC-FY; 75635-TC; 76000-TC-FY; 80053; 82550; 82962; 84484; 85025; 85610; 85730; 93005; 93010; 94760; 99285-25; J0131; J1644

== ENCOUNTER 2018-10-20 08:01 | Day surgery (SDC) | payer OTHER | END 2018-10-20 15:46 | disposition home or self-care (01) | LOC: JASU-SURG 08:01 ==

== ENCOUNTER 2021-07-18 23:15 | Emergency (ER) | payer BC, OTHER ==
[2021-07-18 23:18] VITALS: BP 171/78; PULSE 98; TEMP 97.7; BMI 27.4
[2021-07-19] MEDS ORDERED: AMOX TR/POT CLAV 875MG/125MG TABLETS (FP) PO ONE (01:09)
[2021-07-19] MEDS ORDERED: ACETAMINOPHEN 500 MG TABLET (FP) PO ONE (01:11)
[2021-07-19] MEDS ORDERED: AMOX TR/POT CLAV 875MG/125MG TABLETS (FP) ONE (01:40)
[2021-07-19] MEDS ORDERED: ACETAMINOPHEN 500 MG TABLET (FP) ONE (01:43)
== END 2021-07-19 02:00 | disposition home or self-care (01) ==
LOC: JER 23:15
DX: H66.90 Otitis media, unspecified, unspecified ear (principal)
CPT/HCPCS: 99283-25

== ENCOUNTER 2021-08-02 12:19 | Inpatient (IN) | payer BC ==
[2021-08-02] MEDS ORDERED: PIPERACILLIN/TAZOB 4.5 GM 4.5 GM in DEXTROSE 5%-WATER 100 ML IVPB ONE (14:03)
[2021-08-02] MEDS ORDERED: VANCOMYCIN 1 GM in D5W (PRE-DOCKED) 1,000 MG/250 ML IVPB ONE (14:03)
[2021-08-02] MEDS ORDERED: ACETAMINOPHEN 1000 MG/100 ML BAG IVPB ONE (14:06)
[2021-08-02] MEDS ORDERED: LACTATED RINGERS SOLUTION 1000 ML INFUS.BAG IV ONE (14:06)
[2021-08-02] MEDS ORDERED: ACETAMINOPHEN INJECTION 100 ML IVPB ONE (14:35)
[2021-08-02] MEDS ORDERED: VANCOMYCIN 1 GRAM (PRE-DOCKED) 1,000 MG/250 ML BAG IVPB ONE (14:36)
[2021-08-02] MEDS ORDERED: PIPERACILLIN/TAZOB 4.5 GM 4.5 GM/100 ML BAG IVPB ONE (14:36)
[2021-08-02 15:26] LABS: BASO % 0.8 % (0-2.0); HEMATOCRIT 39.3 % (35.4-49); HEMOGLOBIN 12.6 GM/dL (11.7-16.9); LYMPH % 22.6 % (8-40); MCH 26.4 pg (25.7-33.7); MCHC 32.2 g/dl (32.0-35.9); MEAN PLT VOLUME 10.7 fl (7.5-11.1); MONO % 9.9 % (3.8-10.2); NEUT % 65.7 % (42.8-82.8); PLATELET COUNT 120 10^3/uL (134-434); RBC 4.79 M/mm3 (4.00-5.60); RDW 15.3 % (11.9-15.9); WHITE BLOOD COUNT 9.9 K/mm3 (4.0-10.0)
[2021-08-02 15:36] LABS: CALCIUM 9.6 mg/dL (8.5-10.1)
[2021-08-02 15:37] LABS: ALBUMIN 3.6 g/dl (3.4-5.0); BLOOD UREA NITROGEN 10.2 mg/dL (7-18); MAGNESIUM 1.9 mg/dL (1.8-2.4)
[2021-08-02 15:40] LABS: CREATININE 0.8 mg/dL (0.55-1.3)
[2021-08-02 15:42] LABS: BILIRUBIN,TOTAL 0.2 mg/dL (0.2-1); TOT PROT 7.1 g/dl (6.4-8.2)
[2021-08-02 22:10] VITALS: BMI 24.3
[2021-08-02] MEDS ORDERED: VANCOMYCIN 1,000 MG in DEXTROSE 5%-WATER - 250 ML IVPB SCH (23:30)
[2021-08-02] MEDS ORDERED: VANCOMYCIN 1 GRAM (PRE-DOCKED) 1,000 MG/250 ML BAG IVPB SCH (23:30)
[2021-08-03] MEDS: PREGABALIN 50 MG CAPSULE PO SCH ×3 (00:19→21:27)
[2021-08-03] MEDS: ACETAMINOPHEN 1000 MG/100 ML BAG IVPB PRN ×3 (00:20→21:24)
[2021-08-03] MEDS: INSULIN (LEVEMIR) 100 UNITS/ML UNITS SQ SCH ×3 (00:20→21:26)
[2021-08-03] MEDS ORDERED: PIPERACILLIN/TAZOB 3.375 GM 3.375 GM in DEXTROSE 5%-WATER - 50 ML IVPB SCH (02:00)
[2021-08-03] MEDS ORDERED: PIPERACILLIN/TAZOBACTAM 3.375 GM VIAL IVPB ONE ×4 (05:15→18:48)
[2021-08-03] MEDS ORDERED: DEXTROSE 5%-WATER - 50 ML IVPB ONE ×4 (05:16→18:48)
[2021-08-03] MEDS: PIPERACILLIN/TAZOB 3.375 GM 3.375 GM in DEXTROSE 5%-WATER - 50 ML IVPB SCH ×3 (05:31→18:43)
[2021-08-03] MEDS: VANCOMYCIN 1 GRAM (PRE-DOCKED) 1,000 MG/250 ML BAG IVPB SCH ×2 (05:50→16:48)
[2021-08-03] MEDS: INSULIN SLIDING SCALE (NOVOLOG) 1 VIAL SQ SCH ×4 (06:07→21:27)
[2021-08-03 08:23] LABS: BASO % 0.6 % (0-2.0); EOS % 1.2 % (0-4.5); HEMATOCRIT 35.4 % (35.4-49); HEMOGLOBIN 11.8 GM/dL (11.7-16.9); LYMPH % 36.4 % (8-40); MCHC 33.4 g/dl (32.0-35.9); MEAN CELL VOLUME 80.7 fl (80-96); MONO % 10.5 % (3.8-10.2); NEUT % 51.3 % (42.8-82.8); PLATELET COUNT 112 10^3/uL (134-434); RBC 4.38 M/mm3 (4.00-5.60); WHITE BLOOD COUNT 9.7 K/mm3 (4.0-10.0)
[2021-08-03] MEDS: TAMSULOSIN HCL 0.4 MG CAP PO SCH (08:44)
[2021-08-03 08:48] LABS: CALCIUM 8.8 mg/dL (8.5-10.1)
[2021-08-03 08:51] LABS: CREATININE 0.7 mg/dL (0.55-1.3)
[2021-08-03 08:53] LABS: BILIRUBIN,TOTAL 0.6 mg/dL (0.2-1)
[2021-08-03 09:07] LABS: ALBUMIN 2.8 g/dl (3.4-5.0)
[2021-08-03] MEDS: ASPIRIN 81 MG CHEWABLE TABLETS PO SCH (09:56)
[2021-08-03] MEDS: LOSARTAN POTASSIUM 50 MG TABLET PO SCH (09:56)
[2021-08-03] MEDS: CLOPIDOGREL BISULFATE 75 MG TABLET (FP) PO SCH (09:57)
[2021-08-03] MEDS: HEPARIN NA (PORCINE) 5,000 UNITS/ML 1ML VIAL SQ SCH ×2 (10:02→21:26)
[2021-08-03] MEDS: ATORVASTATIN CA 40 MG TABLET (FP) PO SCH (21:25)
[2021-08-04] MEDS ORDERED: DEXTROSE 5%-WATER - 50 ML IVPB ONE ×4 (00:04→17:16)
[2021-08-04] MEDS ORDERED: PIPERACILLIN/TAZOBACTAM 3.375 GM VIAL IVPB ONE ×4 (00:04→17:16)
[2021-08-04] MEDS: PIPERACILLIN/TAZOB 3.375 GM 3.375 GM in DEXTROSE 5%-WATER - 50 ML IVPB SCH ×3 (02:35→17:09)
[2021-08-04] MEDS ORDERED: KETOROLAC TROMETHAMINE 30 MG/1 ML VIAL IVPUSH ONE ×2 (04:30)
[2021-08-04] MEDS: ACETAMINOPHEN 1000 MG/100 ML BAG IVPB PRN ×3 (06:10→17:43)
[2021-08-04] MEDS: CLOPIDOGREL BISULFATE 75 MG TABLET (FP) PO SCH (09:17)
[2021-08-04] MEDS: HEPARIN NA (PORCINE) 5,000 UNITS/ML 1ML VIAL SQ SCH ×2 (09:17→21:47)
[2021-08-04] MEDS: PREGABALIN 50 MG CAPSULE PO SCH ×2 (09:17→21:47)
[2021-08-04] MEDS: ASPIRIN 81 MG CHEWABLE TABLETS PO SCH (09:17)
[2021-08-04] MEDS: TAMSULOSIN HCL 0.4 MG CAP PO SCH (09:17)
[2021-08-04] MEDS: LOSARTAN POTASSIUM 50 MG TABLET PO SCH (09:17)
[2021-08-04] MEDS ORDERED: INSULIN (NOVOLOG) ASPART 100 UNITS/ML 10ML VIAL ONE (11:04)
[2021-08-04] MEDS: INSULIN SLIDING SCALE (NOVOLOG) 1 VIAL SQ SCH ×4 (11:10→21:53)
[2021-08-04] MEDS: INSULIN (LEVEMIR) 100 UNITS/ML UNITS SQ SCH ×2 (11:12→21:53)
[2021-08-04] MEDS: ATORVASTATIN CA 40 MG TABLET (FP) PO SCH (21:47)
[2021-08-04] MEDS ORDERED: KETOROLAC TROMETHAMINE 15 MG/ML VIAL IVPUSH ONE (22:53)
[2021-08-05] MEDS ORDERED: PIPERACILLIN/TAZOBACTAM 3.375 GM VIAL IVPB ONE ×3 (02:53→17:15)
[2021-08-05] MEDS ORDERED: DEXTROSE 5%-WATER - 50 ML IVPB ONE ×3 (02:53→17:15)
[2021-08-05] MEDS: PIPERACILLIN/TAZOB 3.375 GM 3.375 GM in DEXTROSE 5%-WATER - 50 ML IVPB SCH ×3 (03:00→17:16)
[2021-08-05] MEDS: INSULIN SLIDING SCALE (NOVOLOG) 1 VIAL SQ SCH ×4 (06:55→22:42)
[2021-08-05] MEDS: CLOPIDOGREL BISULFATE 75 MG TABLET (FP) PO SCH (08:59)
[2021-08-05] MEDS: LOSARTAN POTASSIUM 50 MG TABLET PO SCH (08:59)
[2021-08-05] MEDS: HEPARIN NA (PORCINE) 5,000 UNITS/ML 1ML VIAL SQ SCH ×2 (08:59→22:40)
[2021-08-05] MEDS: TAMSULOSIN HCL 0.4 MG CAP PO SCH (08:59)
[2021-08-05] MEDS: ASPIRIN 81 MG CHEWABLE TABLETS PO SCH (09:00)
[2021-08-05] MEDS: PREGABALIN 50 MG CAPSULE PO SCH ×2 (09:00→22:40)
[2021-08-05] MEDS: INSULIN (LEVEMIR) 100 UNITS/ML UNITS SQ SCH ×2 (10:23→22:41)
[2021-08-05] MEDS: KETOROLAC TROMETHAMINE 30 MG/1 ML VIAL IVPUSH SCH (11:23)
[2021-08-05] MEDS: methylPREDNISolone NA SUCC 40 MG/1 ML VIAL IVPUSH SCH (17:16)
[2021-08-05] MEDS: ATORVASTATIN CA 40 MG TABLET (FP) PO SCH (22:40)
[2021-08-05] MEDS: MELATONIN 5 MG TABLETS PO SCH (22:40)
[2021-08-06] MEDS ORDERED: PIPERACILLIN/TAZOBACTAM 3.375 GM VIAL IVPB ONE ×3 (01:24→16:56)
[2021-08-06] MEDS ORDERED: DEXTROSE 5%-WATER - 50 ML IVPB ONE ×3 (01:24→16:56)
[2021-08-06] MEDS: methylPREDNISolone NA SUCC 40 MG/1 ML VIAL IVPUSH SCH ×3 (01:27→17:17)
[2021-08-06] MEDS: PIPERACILLIN/TAZOB 3.375 GM 3.375 GM in DEXTROSE 5%-WATER - 50 ML IVPB SCH ×3 (01:27→17:17)
[2021-08-06] MEDS: INSULIN SLIDING SCALE (NOVOLOG) 1 VIAL SQ SCH ×4 (06:22→21:22)
[2021-08-06] MEDS: ASPIRIN 81 MG CHEWABLE TABLETS PO SCH (09:06)
[2021-08-06] MEDS: PREGABALIN 50 MG CAPSULE PO SCH ×2 (09:06→21:21)
[2021-08-06] MEDS: HEPARIN NA (PORCINE) 5,000 UNITS/ML 1ML VIAL SQ SCH ×2 (09:06→21:19)
[2021-08-06] MEDS: LOSARTAN POTASSIUM 50 MG TABLET PO SCH (09:06)
[2021-08-06] MEDS: CLOPIDOGREL BISULFATE 75 MG TABLET (FP) PO SCH (09:07)
[2021-08-06] MEDS: TAMSULOSIN HCL 0.4 MG CAP PO SCH (09:07)
[2021-08-06] MEDS: INSULIN (LEVEMIR) 100 UNITS/ML UNITS SQ SCH ×2 (09:07→21:21)
[2021-08-06 10:20] LABS: BASO % 0.3 % (0-2.0); HEMATOCRIT 38.9 % (35.4-49); HEMOGLOBIN 12.2 GM/dL (11.7-16.9); LYMPH % 12.7 % (8-40); MCH 25.9 pg (25.7-33.7); MCHC 31.4 g/dl (32.0-35.9); MEAN CELL VOLUME 82.6 fl (80-96); MEAN PLT VOLUME 10.8 fl (7.5-11.1); MONO % 1.5 % (3.8-10.2); NEUT % 85.5 % (42.8-82.8); PLATELET COUNT 131 10^3/uL (134-434); RBC 4.71 M/mm3 (4.00-5.60); RDW 15.1 % (11.9-15.9); WHITE BLOOD COUNT 10.2 K/mm3 (4.0-10.0)
[2021-08-06 10:42] LABS: CALCIUM 8.7 mg/dL (8.5-10.1)
[2021-08-06 10:43] LABS: ALBUMIN 2.9 g/dl (3.4-5.0)
[2021-08-06 10:46] LABS: CREATININE 0.9 mg/dL (0.55-1.3)
[2021-08-06 10:47] LABS: BILIRUBIN,TOTAL 0.4 mg/dL (0.2-1); TOT PROT 6.5 g/dl (6.4-8.2)
[2021-08-06] MEDS: KETOROLAC TROMETHAMINE 30 MG/1 ML VIAL IVPUSH SCH (12:24)
[2021-08-06] MEDS ORDERED: INSULIN (NOVOLOG) ASPART 100 UNITS/ML 10ML VIAL ONE (20:31)
[2021-08-06] MEDS: MELATONIN 5 MG TABLETS PO SCH (21:22)
[2021-08-06] MEDS: ATORVASTATIN CA 40 MG TABLET (FP) PO SCH (21:22)
[2021-08-07] MEDS ORDERED: DEXTROSE 5%-WATER - 50 ML IVPB ONE ×3 (01:14→17:37)
[2021-08-07] MEDS ORDERED: PIPERACILLIN/TAZOBACTAM 3.375 GM VIAL IVPB ONE ×3 (01:14→17:37)
[2021-08-07] MEDS: PIPERACILLIN/TAZOB 3.375 GM 3.375 GM in DEXTROSE 5%-WATER - 50 ML IVPB SCH ×3 (01:33→17:29)
[2021-08-07] MEDS: INSULIN SLIDING SCALE (NOVOLOG) 1 VIAL SQ SCH ×4 (06:30→21:27)
[2021-08-07] MEDS: TAMSULOSIN HCL 0.4 MG CAP PO SCH (08:41)
[2021-08-07] MEDS: LOSARTAN POTASSIUM 50 MG TABLET PO SCH (09:24)
[2021-08-07] MEDS: ASPIRIN 81 MG CHEWABLE TABLETS PO SCH (09:24)
[2021-08-07] MEDS: CLOPIDOGREL BISULFATE 75 MG TABLET (FP) PO SCH (09:25)
[2021-08-07] MEDS: PREGABALIN 50 MG CAPSULE PO SCH ×2 (09:25→21:28)
[2021-08-07] MEDS: INSULIN (LEVEMIR) 100 UNITS/ML UNITS SQ SCH ×2 (09:36→21:26)
[2021-08-07] MEDS: HEPARIN NA (PORCINE) 5,000 UNITS/ML 1ML VIAL SQ SCH ×2 (09:36→21:28)
[2021-08-07] MEDS ORDERED: predniSONE 20 MG TABLET (UD) PO SCH (10:00)
[2021-08-07] MEDS: KETOROLAC TROMETHAMINE 30 MG/1 ML VIAL IVPUSH SCH (11:51)
[2021-08-07] MEDS: MELATONIN 5 MG TABLETS PO SCH (21:27)
[2021-08-07] MEDS: ATORVASTATIN CA 40 MG TABLET (FP) PO SCH (21:28)
[2021-08-08] MEDS ORDERED: PIPERACILLIN/TAZOBACTAM 3.375 GM VIAL IVPB ONE ×3 (01:21→17:46)
[2021-08-08] MEDS ORDERED: DEXTROSE 5%-WATER - 50 ML IVPB ONE ×3 (01:22→17:47)
[2021-08-08] MEDS: PIPERACILLIN/TAZOB 3.375 GM 3.375 GM in DEXTROSE 5%-WATER - 50 ML IVPB SCH ×3 (01:43→18:02)
[2021-08-08] MEDS: INSULIN SLIDING SCALE (NOVOLOG) 1 VIAL SQ SCH ×4 (07:21→22:03)
[2021-08-08] MEDS: TAMSULOSIN HCL 0.4 MG CAP PO SCH (08:25)
[2021-08-08] MEDS: CLOPIDOGREL BISULFATE 75 MG TABLET (FP) PO SCH (09:09)
[2021-08-08] MEDS: LOSARTAN POTASSIUM 50 MG TABLET PO SCH (09:10)
[2021-08-08] MEDS: PREGABALIN 75 MG CAPSULE PO SCH ×2 (09:10→21:55)
[2021-08-08] MEDS: ASPIRIN 81 MG CHEWABLE TABLETS PO SCH (09:11)
[2021-08-08] MEDS: OFLOXACIN 0.3% OTIC SOLUTION 5 ML BOTTLE AS SCH (09:12)
[2021-08-08] MEDS: HEPARIN NA (PORCINE) 5,000 UNITS/ML 1ML VIAL SQ SCH ×2 (09:13→21:56)
[2021-08-08] MEDS: INSULIN (LEVEMIR) 100 UNITS/ML UNITS SQ SCH ×2 (09:13→23:25)
[2021-08-08] MEDS ORDERED: OFLOXACIN 0.3% OTIC SOLUTION 5 ML BOTTLE AD SCH (10:00)
[2021-08-08] MEDS: KETOROLAC TROMETHAMINE 30 MG/1 ML VIAL IVPUSH SCH (11:37)
[2021-08-08] MEDS: ACETAMINOPHEN 1000 MG/100 ML BAG IVPB PRN (16:18)
[2021-08-08] MEDS: MELATONIN 5 MG TABLETS PO SCH (21:55)
[2021-08-08] MEDS: ATORVASTATIN CA 40 MG TABLET (FP) PO SCH (21:55)
[2021-08-08] MEDS ORDERED: ACETAMINOPHEN 1000 MG/100 ML BAG IVPB ONE (22:50)
[2021-08-09] MEDS ORDERED: PIPERACILLIN/TAZOBACTAM 3.375 GM VIAL IVPB ONE ×2 (01:06→09:03)
[2021-08-09] MEDS ORDERED: DEXTROSE 5%-WATER - 50 ML IVPB ONE ×2 (01:06→09:04)
[2021-08-09] MEDS: PIPERACILLIN/TAZOB 3.375 GM 3.375 GM in DEXTROSE 5%-WATER - 50 ML IVPB SCH ×2 (01:40→09:10)
[2021-08-09] MEDS: INSULIN SLIDING SCALE (NOVOLOG) 1 VIAL SQ SCH (06:23)
[2021-08-09] MEDS ORDERED: INSULIN (NOVOLOG) ASPART 100 UNITS/ML 10ML VIAL ONE (06:53)
[2021-08-09] MEDS: ACETAMINOPHEN 1000 MG/100 ML BAG IVPB PRN (07:10)
[2021-08-09] MEDS: CLOPIDOGREL BISULFATE 75 MG TABLET (FP) PO SCH (09:10)
[2021-08-09] MEDS: ASPIRIN 81 MG CHEWABLE TABLETS PO SCH (09:10)
[2021-08-09] MEDS: PREGABALIN 75 MG CAPSULE PO SCH (09:10)
[2021-08-09] MEDS: LOSARTAN POTASSIUM 50 MG TABLET PO SCH (09:10)
[2021-08-09] MEDS: TAMSULOSIN HCL 0.4 MG CAP PO SCH (09:10)
[2021-08-09] MEDS: HEPARIN NA (PORCINE) 5,000 UNITS/ML 1ML VIAL SQ SCH (09:11)
[2021-08-09] MEDS: OFLOXACIN 0.3% OTIC SOLUTION 5 ML BOTTLE AS SCH (09:11)
[2021-08-09] MEDS: INSULIN (LEVEMIR) 100 UNITS/ML UNITS SQ SCH (10:16)
[2021-08-09 11:56] VITALS: BP 144/75; PULSE 79; TEMP 97.8
== END 2021-08-09 11:49 | disposition home or self-care (01) | DRG 153 ==
LOC: JER 12:19 → JERBED 18:23 → J6S 21:24
PROVIDERS: ADMIT Family Medicine Geriatric Medicine; ATTEND Family Medicine Geriatric Medicine
DX: H70.002 Acute mastoiditis without complications, left ear (principal); H66.90 Otitis media, unspecified, unspecified ear; E11.9 Type 2 diabetes mellitus without complications; E11.51 Type 2 diabetes mellitus with diabetic peripheral angiopathy without gangrene; I10 Essential (primary) hypertension; I25.10 Atherosclerotic heart disease of native coronary artery without angina pectoris; E78.5 Hyperlipidemia, unspecified; H92.02 Otalgia, left ear; R42 Dizziness and giddiness; N40.0 Benign prostatic hyperplasia without lower urinary tract symptoms
CPT/HCPCS: 36415; 70450-TC; 70486-TC; 70490-TC; 80053; 82962; 83735; 85025; 87040; 99285-25; C9803-CS; J1644; U0003; U0005

== ENCOUNTER 2021-08-15 14:08 | Emergency (ER) | payer BC ==
[2021-08-15 14:36] VITALS: BMI 24.2
[2021-08-15] MEDS ORDERED: KETOROLAC TROMETHAMINE 30 MG/1 ML VIAL IM ONE (16:51)
[2021-08-15] MEDS ORDERED: ACETAMINOPHEN 500 MG TABLET (FP) PO ONE (16:51)
[2021-08-15] MEDS ORDERED: KETOROLAC TROMETHAMINE 30 MG/1 ML VIAL ONE (17:16)
[2021-08-15] MEDS ORDERED: ACETAMINOPHEN 325 MG TABLET (FP) ONE (17:16)
[2021-08-15] MEDS ORDERED: oxyCODONE HCL 5 MG TABLET PO ONE (18:02)
[2021-08-15 18:19] VITALS: BP 166/79; PULSE 94; TEMP 98.1
== END 2021-08-15 18:25 | disposition home or self-care (01) ==
LOC: JER 14:08
PROC: 3E0233Z Introduction of Anti-inflammatory into Muscle, Percutaneous Approach (ICD-10-PCS; principal; 2021-08-15)
DX: H70.92 Unspecified mastoiditis, left ear (principal)
CPT/HCPCS: 70480-TC; 82962; 99285-25

== ENCOUNTER 2022-07-16 15:45 | Inpatient (IN) | payer BC, OTHER ==
[2022-07-16] MEDS ORDERED: PIPERACILLIN/TAZOB 2.25 GM 2.25 GM in DEXTROSE 5%-WATER - 50 ML IVPB ONE (16:42)
[2022-07-16] MEDS ORDERED: VANCOMYCIN 1 GM in D5W (PRE-DOCKED) 1,000 MG/250 ML IVPB ONE (16:42)
[2022-07-16] MEDS ORDERED: PIPERACILLIN/TAZOB 3.375 GM 3.375 GM in DEXTROSE 5%-WATER - 50 ML IVPB ONE (16:46)
[2022-07-16] MEDS ORDERED: PIPERACILLIN/TAZOB 3.375 GM 3.375 GM/50 ML BAG IVPB ONE (17:15)
[2022-07-16] MEDS ORDERED: VANCOMYCIN/WATER FOR INJ (PEG) 1,000 MG/200 ML BAG IVPB ONE (17:35)
[2022-07-16 17:37] LABS: INR 0.99 (0.83-1.09); PROTHROMBIN TIME (PATIENT) 11.5 SEC (9.7-13.0)
[2022-07-16 17:39] LABS: ACTIVATED PTT 33.1 SECONDS (25.2-36.5)
[2022-07-16 17:56] LABS: BASO % 0.9 % (0-2.0); HEMATOCRIT 41.1 % (35.4-49); HEMOGLOBIN 13.1 GM/dL (11.7-16.9); LYMPH % 21.1 % (8-40); MCH 25.4 pg (25.7-33.7); MEAN CELL VOLUME 79.4 fl (80-96); MEAN PLT VOLUME 10.9 fl (7.5-11.1); MONO % 7.4 % (3.8-10.2); NEUT % 69.6 % (42.8-82.8); PLATELET COUNT 73 10^3/uL (134-434); RBC 5.17 M/mm3 (4.00-5.60); RDW 15.6 % (11.9-15.9); WHITE BLOOD COUNT 7.8 K/mm3 (4.0-10.0)
[2022-07-16 17:58] LABS: CHLORIDE 100 mmol/L (98-107); SODIUM 137 mmol/L (136-145)
[2022-07-16 17:59] LABS: ALBUMIN 3.2 g/dl (3.4-5.0); ANION GAP 5 MMOL/L (8-16); BLOOD UREA NITROGEN 18.5 mg/dL (7-18); CALCIUM 8.5 mg/dL (8.5-10.1); CO2 33 mmol/L (21-32); GLUCOSE,RANDOM 321 mg/dL (74-106); MAGNESIUM 1.9 mg/dL (1.8-2.4)
[2022-07-16 18:02] LABS: CREATININE 1.1 mg/dL (0.55-1.3); SGOT/AST 13 U/L (15-37); SGPT/ALT 20 U/L (13-61)
[2022-07-16 18:04] LABS: BILIRUBIN,TOTAL 0.3 mg/dL (0.2-1); TOT PROT 6.2 g/dl (6.4-8.2)
[2022-07-16 18:05] LABS: ALK PHOS 104 U/L (45-117)
[2022-07-16] MEDS ORDERED: ACETAMINOPHEN 500 MG TABLET (FP) PO ONE (18:27)
[2022-07-16] MEDS ORDERED: ACETAMINOPHEN 325 MG TABLET (FP) PO ONE (18:32)
[2022-07-16] MEDS ORDERED: ACETAMINOPHEN 325 MG TABLET (FP) ONE (18:33)
[2022-07-17 01:50] VITALS: BMI 23.1
[2022-07-17] MEDS: PIPERACILLIN/TAZOB 3.375 GM 3.375 GM in DEXTROSE 5%-WATER - 50 ML IVPB SCH ×3 (03:09→10:33)
[2022-07-17] MEDS: ACETAMINOPHEN 325 MG TABLET (FP) PO PRN ×2 (03:09→10:24)
[2022-07-17] MEDS ORDERED: INSULIN (NOVOLOG) ASPART 100 UNITS/ML 10ML VIAL ONE ×3 (06:07→10:08)
[2022-07-17] MEDS: INSULIN SLIDING SCALE (NOVOLOG) 1 VIAL SQ SCH ×4 (06:22→22:12)
[2022-07-17] MEDS: metFORMIN HCL 500 MG TABLET (FP) PO SCH ×2 (06:22→17:07)
[2022-07-17 08:25] LABS: BASO % 0.9 % (0-2.0); EOS % 1.4 % (0-4.5); HEMATOCRIT 38.6 % (35.4-49); HEMOGLOBIN 12.5 GM/dL (11.7-16.9); LYMPH % 39.2 % (8-40); MCH 25.7 pg (25.7-33.7); MCHC 32.5 g/dl (32.0-35.9); MEAN CELL VOLUME 79.1 fl (80-96); MEAN PLT VOLUME 10.9 fl (7.5-11.1); MONO % 9.8 % (3.8-10.2); NEUT % 48.7 % (42.8-82.8); PLATELET COUNT 67 10^3/uL (134-434); RBC 4.88 M/mm3 (4.00-5.60); RDW 15.7 % (11.9-15.9); WHITE BLOOD COUNT 7.8 K/mm3 (4.0-10.0)
[2022-07-17 08:57] LABS: CALCIUM 8.5 mg/dL (8.5-10.1)
[2022-07-17 08:59] LABS: BLOOD UREA NITROGEN 26.3 mg/dL (7-18)
[2022-07-17 09:01] LABS: CREATININE 0.9 mg/dL (0.55-1.3)
[2022-07-17 09:03] LABS: BILIRUBIN,TOTAL 0.3 mg/dL (0.2-1)
[2022-07-17] MEDS: CLOPIDOGREL BISULFATE 75 MG TABLET (FP) PO SCH (10:23)
[2022-07-17] MEDS: ASPIRIN 81 MG CHEWABLE TABLETS PO SCH (10:23)
[2022-07-17] MEDS: PREGABALIN 50 MG CAPSULE PO SCH ×2 (10:23→22:33)
[2022-07-17] MEDS: ENOXAPARIN NA (PORCINE) 40 MG/0.4 ML DISP.SYRIN SQ SCH (10:23)
[2022-07-17] MEDS: CEFTRIAXONE 1 GM in DEXTROSE 5%-WATER - 50 ML IVPB SCH (10:25)
[2022-07-17] MEDS: ATORVASTATIN CA 40 MG TABLET (FP) PO SCH (22:33)
[2022-07-18] MEDS: metFORMIN HCL 500 MG TABLET (FP) PO SCH ×2 (06:42→16:21)
[2022-07-18] MEDS: INSULIN SLIDING SCALE (NOVOLOG) 1 VIAL SQ SCH ×4 (06:44→23:44)
[2022-07-18] MEDS: COLLAGENASE CLOSTRIDIUM HIST. 30 GRAMS TUBE TP SCH ×2 (11:09)
[2022-07-18] MEDS: CEFTRIAXONE 1 GM in DEXTROSE 5%-WATER - 50 ML IVPB SCH (11:10)
[2022-07-18] MEDS: PREGABALIN 50 MG CAPSULE PO SCH ×2 (11:10→23:42)
[2022-07-18] MEDS: ASPIRIN 81 MG CHEWABLE TABLETS PO SCH (11:10)
[2022-07-18] MEDS: CLOPIDOGREL BISULFATE 75 MG TABLET (FP) PO SCH (11:10)
[2022-07-18] MEDS: ENOXAPARIN NA (PORCINE) 40 MG/0.4 ML DISP.SYRIN SQ SCH (11:10)
[2022-07-18] MEDS ORDERED: INSULIN (NOVOLOG) ASPART 100 UNITS/ML 10ML VIAL ONE (11:24)
[2022-07-18] MEDS: ACETAMINOPHEN 325 MG TABLET (FP) PO PRN ×2 (15:11→20:49)
[2022-07-18] MEDS: ATORVASTATIN CA 40 MG TABLET (FP) PO SCH (23:43)
[2022-07-19] MEDS: metFORMIN HCL 500 MG TABLET (FP) PO SCH ×2 (06:32→16:50)
[2022-07-19] MEDS: INSULIN SLIDING SCALE (NOVOLOG) 1 VIAL SQ SCH ×4 (06:38→23:10)
[2022-07-19 07:37] LABS: BLOOD UREA NITROGEN 26.6 mg/dL (7-18)
[2022-07-19 07:40] LABS: CREATININE 0.8 mg/dL (0.55-1.3)
[2022-07-19 07:41] LABS: BILIRUBIN,TOTAL 0.5 mg/dL (0.2-1)
[2022-07-19 07:50] LABS: BASO % 0.9 % (0-2.0); EOS % 1.3 % (0-4.5); HEMATOCRIT 39.9 % (35.4-49); LYMPH % 35.6 % (8-40); MCH 26.3 pg (25.7-33.7); MCHC 32.5 g/dl (32.0-35.9); MEAN CELL VOLUME 80.9 fl (80-96); MEAN PLT VOLUME 11.4 fl (7.5-11.1); MONO % 9.5 % (3.8-10.2); NEUT % 52.7 % (42.8-82.8); PLATELET COUNT 74 10^3/uL (134-434); RBC 4.93 M/mm3 (4.00-5.60); RDW 15.3 % (11.9-15.9); WHITE BLOOD COUNT 8.7 K/mm3 (4.0-10.0)
[2022-07-19] MEDS: CEFTRIAXONE 1 GM in DEXTROSE 5%-WATER - 50 ML IVPB SCH (10:23)
[2022-07-19] MEDS: ASPIRIN 81 MG CHEWABLE TABLETS PO SCH (10:24)
[2022-07-19] MEDS: CLOPIDOGREL BISULFATE 75 MG TABLET (FP) PO SCH (10:24)
[2022-07-19] MEDS: ACETAMINOPHEN 325 MG TABLET (FP) PO PRN ×2 (10:25→22:56)
[2022-07-19] MEDS: COLLAGENASE CLOSTRIDIUM HIST. 30 GRAMS TUBE TP SCH (10:25)
[2022-07-19] MEDS: PREGABALIN 50 MG CAPSULE PO SCH ×2 (10:25→22:56)
[2022-07-19] MEDS: ENOXAPARIN NA (PORCINE) 40 MG/0.4 ML DISP.SYRIN SQ SCH (10:26)
[2022-07-19] MEDS ORDERED: INSULIN (NOVOLOG) ASPART 100 UNITS/ML 10ML VIAL ONE ×5 (11:16→23:04)
[2022-07-19] MEDS ORDERED: GABAPENTIN 100 MG CAPSULE PO ONE (11:45)
[2022-07-19] MEDS: ATORVASTATIN CA 40 MG TABLET (FP) PO SCH (22:55)
[2022-07-19] MEDS ORDERED: INSULIN (NOVOLOG MIX 70/30) 100 UNITS/ML MDV SQ ONE (23:18)
[2022-07-20] MEDS: metFORMIN HCL 500 MG TABLET (FP) PO SCH ×2 (06:34→16:49)
[2022-07-20] MEDS: INSULIN SLIDING SCALE (NOVOLOG) 1 VIAL SQ SCH ×4 (06:57→21:57)
[2022-07-20] MEDS: CEFTRIAXONE 1 GM in DEXTROSE 5%-WATER - 50 ML IVPB SCH (10:14)
[2022-07-20] MEDS: ENOXAPARIN NA (PORCINE) 40 MG/0.4 ML DISP.SYRIN SQ SCH (10:14)
[2022-07-20] MEDS: CLOPIDOGREL BISULFATE 75 MG TABLET (FP) PO SCH (10:15)
[2022-07-20] MEDS: ASPIRIN 81 MG CHEWABLE TABLETS PO SCH (10:15)
[2022-07-20] MEDS: PREGABALIN 50 MG CAPSULE PO SCH ×2 (10:15→21:57)
[2022-07-20] MEDS: COLLAGENASE CLOSTRIDIUM HIST. 30 GRAMS TUBE TP SCH (10:16)
[2022-07-20] MEDS: ATORVASTATIN CA 40 MG TABLET (FP) PO SCH (21:57)
[2022-07-21] MEDS: INSULIN SLIDING SCALE (NOVOLOG) 1 VIAL SQ SCH ×4 (06:53→22:15)
[2022-07-21] MEDS: metFORMIN HCL 500 MG TABLET (FP) PO SCH ×2 (06:53→18:09)
[2022-07-21] MEDS: PREGABALIN 50 MG CAPSULE PO SCH ×2 (10:17→22:16)
[2022-07-21] MEDS: CLOPIDOGREL BISULFATE 75 MG TABLET (FP) PO SCH (10:17)
[2022-07-21] MEDS: ASPIRIN 81 MG CHEWABLE TABLETS PO SCH (10:17)
[2022-07-21] MEDS: ACETAMINOPHEN 325 MG TABLET (FP) PO PRN ×2 (10:17→22:16)
[2022-07-21] MEDS: CEFTRIAXONE 1 GM in DEXTROSE 5%-WATER - 50 ML IVPB SCH (10:18)
[2022-07-21 10:20] VITALS: RESP 18
[2022-07-21] MEDS: COLLAGENASE CLOSTRIDIUM HIST. 30 GRAMS TUBE TP SCH (10:36)
[2022-07-21] MEDS: ENOXAPARIN NA (PORCINE) 40 MG/0.4 ML DISP.SYRIN SQ SCH (11:58)
[2022-07-21] MEDS ORDERED: INSULIN (NOVOLOG) ASPART 100 UNITS/ML 10ML VIAL ONE (18:05)
[2022-07-21] MEDS: ATORVASTATIN CA 40 MG TABLET (FP) PO SCH (22:16)
[2022-07-22] MEDS: metFORMIN HCL 500 MG TABLET (FP) PO SCH ×2 (06:19→16:59)
[2022-07-22] MEDS: INSULIN SLIDING SCALE (NOVOLOG) 1 VIAL SQ SCH ×4 (06:19→22:01)
[2022-07-22] MEDS: ENOXAPARIN NA (PORCINE) 40 MG/0.4 ML DISP.SYRIN SQ SCH (09:38)
[2022-07-22] MEDS: CEFTRIAXONE 1 GM in DEXTROSE 5%-WATER - 50 ML IVPB SCH (09:38)
[2022-07-22] MEDS: ASPIRIN 81 MG CHEWABLE TABLETS PO SCH (09:38)
[2022-07-22] MEDS: CLOPIDOGREL BISULFATE 75 MG TABLET (FP) PO SCH (09:38)
[2022-07-22] MEDS: PREGABALIN 50 MG CAPSULE PO SCH ×2 (09:38→22:01)
[2022-07-22] MEDS: ACETAMINOPHEN 325 MG TABLET (FP) PO PRN (09:39)
[2022-07-22] MEDS: COLLAGENASE CLOSTRIDIUM HIST. 30 GRAMS TUBE TP SCH (09:40)
[2022-07-22] MEDS ORDERED: diphenhydrAMINE HCL 25 MG CAPSULE (FP) PO ONE (13:45)
[2022-07-22] MEDS ORDERED: methylPREDNISolone NA SUCC 40 MG/1 ML VIAL IVPUSH ONE (13:45)
[2022-07-22] MEDS: ATORVASTATIN CA 40 MG TABLET (FP) PO SCH (22:01)
[2022-07-23] MEDS: ACETAMINOPHEN 325 MG TABLET (FP) PO PRN (06:07)
[2022-07-23] MEDS: metFORMIN HCL 500 MG TABLET (FP) PO SCH ×2 (06:07→17:12)
[2022-07-23] MEDS: INSULIN SLIDING SCALE (NOVOLOG) 1 VIAL SQ SCH ×4 (06:07→21:33)
[2022-07-23] MEDS: COLLAGENASE CLOSTRIDIUM HIST. 30 GRAMS TUBE TP SCH (10:40)
[2022-07-23] MEDS: CEFTRIAXONE 1 GM in DEXTROSE 5%-WATER - 50 ML IVPB SCH (10:40)
[2022-07-23] MEDS ORDERED: INSULIN (NOVOLOG) ASPART 100 UNITS/ML 10ML VIAL ONE (11:12)
[2022-07-23] MEDS: CLOPIDOGREL BISULFATE 75 MG TABLET (FP) PO SCH (11:13)
[2022-07-23] MEDS: PREGABALIN 50 MG CAPSULE PO SCH ×2 (11:13→21:33)
[2022-07-23] MEDS: ENOXAPARIN NA (PORCINE) 40 MG/0.4 ML DISP.SYRIN SQ SCH (11:13)
[2022-07-23] MEDS: ASPIRIN 81 MG CHEWABLE TABLETS PO SCH (11:14)
[2022-07-23] MEDS: ATORVASTATIN CA 40 MG TABLET (FP) PO SCH (21:33)
[2022-07-24] MEDS: metFORMIN HCL 500 MG TABLET (FP) PO SCH ×2 (06:02→17:09)
[2022-07-24] MEDS: INSULIN SLIDING SCALE (NOVOLOG) 1 VIAL SQ SCH ×4 (06:02→23:57)
[2022-07-24 08:48] LABS: BASO % 1.5 % (0-2.0); EOS % 1.6 % (0-4.5); HEMATOCRIT 41.6 % (35.4-49); HEMOGLOBIN 13.5 GM/dL (11.7-16.9); LYMPH % 39.2 % (8-40); MCH 26.4 pg (25.7-33.7); MCHC 32.5 g/dl (32.0-35.9); MEAN CELL VOLUME 81.3 fl (80-96); MEAN PLT VOLUME 11.1 fl (7.5-11.1); MONO % 8.7 % (3.8-10.2); PLATELET COUNT 102 10^3/uL (134-434); RBC 5.12 M/mm3 (4.00-5.60); RDW 15.1 % (11.9-15.9); WHITE BLOOD COUNT 8.1 K/mm3 (4.0-10.0)
[2022-07-24 09:30] LABS: CALCIUM 9.4 mg/dL (8.5-10.1)
[2022-07-24 09:31] LABS: ALBUMIN 3.4 g/dl (3.4-5.0); BLOOD UREA NITROGEN 21.9 mg/dL (7-18)
[2022-07-24 09:34] LABS: CREATININE 0.7 mg/dL (0.55-1.3)
[2022-07-24 09:36] LABS: BILIRUBIN,TOTAL 0.3 mg/dL (0.2-1); TOT PROT 6.6 g/dl (6.4-8.2)
[2022-07-24] MEDS: COLLAGENASE CLOSTRIDIUM HIST. 30 GRAMS TUBE TP SCH (10:43)
[2022-07-24] MEDS: ASPIRIN 81 MG CHEWABLE TABLETS PO SCH (10:43)
[2022-07-24] MEDS: CLOPIDOGREL BISULFATE 75 MG TABLET (FP) PO SCH (10:43)
[2022-07-24] MEDS: CEFTRIAXONE 1 GM in DEXTROSE 5%-WATER - 50 ML IVPB SCH (10:43)
[2022-07-24] MEDS ORDERED: CEFTRIAXONE 2 GM-D5W BAG 2 GM/50 ML BAG IVPB SCH (13:15)
[2022-07-24] MEDS ORDERED: CEFTRIAXONE 2 GM in DEXTROSE 5%-WATER 100 ML IVPB SCH (13:28)
[2022-07-24] MEDS: VANCOMYCIN/WATER FOR INJ (PEG) 1,000 MG/200 ML BAG IVPB SCH (14:23)
[2022-07-24] MEDS: ATORVASTATIN CA 40 MG TABLET (FP) PO SCH (22:20)
[2022-07-24] MEDS: ACETAMINOPHEN 325 MG TABLET (FP) PO PRN (23:51)
[2022-07-25 06:40] VITALS: PULSE 80
[2022-07-25] MEDS: INSULIN SLIDING SCALE (NOVOLOG) 1 VIAL SQ SCH ×2 (06:40→11:39)
[2022-07-25] MEDS: ACETAMINOPHEN 325 MG TABLET (FP) PO PRN (06:40)
[2022-07-25] MEDS: metFORMIN HCL 500 MG TABLET (FP) PO SCH (06:40)
[2022-07-25] MEDS: COLLAGENASE CLOSTRIDIUM HIST. 30 GRAMS TUBE TP SCH (10:50)
[2022-07-25] MEDS: ASPIRIN 81 MG CHEWABLE TABLETS PO SCH (10:50)
[2022-07-25] MEDS: CLOPIDOGREL BISULFATE 75 MG TABLET (FP) PO SCH (10:50)
[2022-07-25] MEDS ORDERED: INSULIN (NOVOLOG) ASPART 100 UNITS/ML 10ML VIAL ONE (11:38)
[2022-07-25] MEDS: VANCOMYCIN/WATER FOR INJ (PEG) 1,000 MG/200 ML BAG IVPB SCH (13:06)
[2022-07-25 14:47] VITALS: BP 145/59; TEMP 97.9
== END 2022-07-25 15:19 | disposition home or self-care (01) | DRG 638 ==
LOC: JER 15:45 → OBSVTOIN 18:25 → JERBED 18:25 → J7W 22:37
PROVIDERS: ADMIT Internal Medicine; ATTEND Internal Medicine
DX: E11.69 Type 2 diabetes mellitus with other specified complication (principal); L97.518 Non-pressure chronic ulcer of other part of right foot with other specified severity; M86.8X7 Other osteomyelitis, ankle and foot; E11.51 Type 2 diabetes mellitus with diabetic peripheral angiopathy without gangrene; K21.9 Gastro-esophageal reflux disease without esophagitis; I10 Essential (primary) hypertension; E78.5 Hyperlipidemia, unspecified; N40.0 Benign prostatic hyperplasia without lower urinary tract symptoms; I25.10 Atherosclerotic heart disease of native coronary artery without angina pectoris; E11.42 Type 2 diabetes mellitus with diabetic polyneuropathy; Z95.5 Presence of coronary angioplasty implant and graft; E11.621 Type 2 diabetes mellitus with foot ulcer; I70.292 Other atherosclerosis of native arteries of extremities, left leg; E11.65 Type 2 diabetes mellitus with hyperglycemia
CPT/HCPCS: 36415; 73630-TC-RT-FY; 73718-TC-RT; 80053; 82962; 83036; 83735; 85025; 85610; 85651; 85730; 86140; 87040; 93005; 93010; 93926-TC; 99285-25; C8902; C9803-CS; U0003; U0005

== ENCOUNTER 2022-08-16 00:55 | Inpatient (IN) | payer BC ==
[2022-08-16 01:15] VITALS: BMI 24.2
[2022-08-16] MEDS ORDERED: PIPERACILLIN/TAZOB 3.375 GM 3.375 GM in DEXTROSE 5%-WATER - 50 ML IVPB ONE (01:40)
[2022-08-16] MEDS ORDERED: VANCOMYCIN 1 GM in D5W (PRE-DOCKED) 1,000 MG/250 ML IVPB ONE (01:40)
[2022-08-16] MEDS ORDERED: ACETAMINOPHEN 1000 MG/100 ML BAG IVPB ONE (02:52)
[2022-08-16] MEDS ORDERED: VANCOMYCIN/WATER FOR INJ (PEG) 1,000 MG/200 ML BAG IVPB ONE (02:52)
[2022-08-16] MEDS ORDERED: ACETAMINOPHEN INJECTION 100 ML IVPB ONE (02:52)
[2022-08-16 02:53] LABS: BASO % 1.2 % (0-2.0); EOS % 1.6 % (0-4.5); HEMATOCRIT 38.6 % (35.4-49); HEMOGLOBIN 12.5 GM/dL (11.7-16.9); LYMPH % 34.9 % (8-40); MCH 25.6 pg (25.7-33.7); MCHC 32.4 g/dl (32.0-35.9); MEAN CELL VOLUME 78.9 fl (80-96); MEAN PLT VOLUME 10.7 fl (7.5-11.1); MONO % 9.8 % (3.8-10.2); NEUT % 52.5 % (42.8-82.8); PLATELET COUNT 138 10^3/uL (134-434); RBC 4.89 M/mm3 (4.00-5.60); RDW 15.7 % (11.9-15.9)
[2022-08-16] MEDS ORDERED: PIPERACILLIN/TAZOB 3.375 GM 3.375 GM/50 ML BAG IVPB ONE ×2 (02:53→09:44)
[2022-08-16 03:07] LABS: INR 1.02 (0.83-1.09); PROTHROMBIN TIME (PATIENT) 11.8 SEC (9.7-13.0)
[2022-08-16 03:10] LABS: ACTIVATED PTT 32.7 SECONDS (25.2-36.5)
[2022-08-16 03:14] LABS: ALBUMIN 3.3 g/dl (3.4-5.0); BLOOD UREA NITROGEN 25.6 mg/dL (7-18)
[2022-08-16 03:17] LABS: CREATININE 1.5 mg/dL (0.55-1.3)
[2022-08-16 03:18] LABS: BILIRUBIN,TOTAL 0.2 mg/dL (0.2-1); TOT PROT 6.8 g/dl (6.4-8.2)
[2022-08-16] MEDS ORDERED: SODIUM CHLORIDE 0.9% 500 ML INFUS.BAG IV ONE (03:43)
[2022-08-16 04:21] LABS: ERYTHROCYTE SEDIMENTATION RATE 31 mm/hr (0-20)
[2022-08-16] MEDS ORDERED: PREGABALIN 50 MG CAPSULE ONE (09:43)
[2022-08-16] MEDS ORDERED: CLOPIDOGREL BISULFATE 75 MG TABLET (FP) ONE (09:43)
[2022-08-16] MEDS ORDERED: FAMOTIDINE 20 MG TABLET ONE (09:43)
[2022-08-16] MEDS ORDERED: ASPIRIN 81 MG CHEWABLE TABLETS ONE (09:43)
[2022-08-16] MEDS ORDERED: ENOXAPARIN NA (PORCINE) 40 MG/0.4 ML DISP.SYRIN SQ ONE (09:44)
[2022-08-16] MEDS: PREGABALIN 50 MG CAPSULE PO SCH ×2 (09:54→21:51)
[2022-08-16] MEDS: FAMOTIDINE 20 MG TABLET PO SCH (09:54)
[2022-08-16] MEDS: ENOXAPARIN NA (PORCINE) 40 MG/0.4 ML DISP.SYRIN SQ SCH (09:54)
[2022-08-16] MEDS: CLOPIDOGREL BISULFATE 75 MG TABLET (FP) PO SCH (09:54)
[2022-08-16] MEDS: ASPIRIN 81 MG CHEWABLE TABLETS PO SCH (09:54)
[2022-08-16] MEDS ORDERED: PIPERACILLIN/TAZOB 3.375 GM 3.375 GM in DEXTROSE 5%-WATER - 50 ML IVPB SCH (10:00)
[2022-08-16] MEDS: INSULIN SLIDING SCALE (NOVOLOG) 1 VIAL SQ SCH ×3 (10:35→21:52)
[2022-08-16] MEDS ORDERED: INSULIN (NOVOLOG) ASPART 100 UNITS/ML 10ML VIAL ONE ×2 (10:38→16:01)
[2022-08-16] MEDS: metFORMIN HCL 500 MG TABLET (FP) PO SCH (16:22)
[2022-08-16] MEDS ORDERED: SODIUM CHLORIDE 0.45% 1,000 ML IV SCH (17:15)
[2022-08-16] MEDS ORDERED: ATORVASTATIN CA 40 MG TABLET (FP) PO SCH (22:00)
[2022-08-16] MEDS ORDERED: ACETAMINOPHEN 325 MG TABLET (FP) PO ONE (23:00)
[2022-08-16 23:45] LABS: EPI CELLS 1 /uL (0-25.1); HYALINE CASTS 0 /uL (0-3.1); PH,URINE 7.5 (5.0-8.0); URINE APPEARANCE CLEAR; URINE BACTERIA 26 /uL (0-1359); URINE BILIRUBIN NEGATIVE (NEGATIVE); URINE COLOR YELLOW; URINE GLUCOSE (UA) 2+ (NEGATIVE); URINE KETONE NEGATIVE (NEGATIVE); URINE LEUK ESTERASE NEGATIVE (NEGATIVE); URINE NITRITE NEGATIVE (NEGATIVE); URINE PROTEIN 2+ (NEGATIVE); URINE RBC 16 /uL (0-23.9); URINE UROBILINOGEN 0.2 mg/dL (0.2-1.0); URINE WBC 2 /uL (0-25.8)
[2022-08-17] MEDS ORDERED: GENTAMICIN SO4 80 MG/2 ML VIAL IVPB ONE
[2022-08-17] MEDS ORDERED: ceFAZolin SODIUM 1 GM VIAL IVPB ONE
[2022-08-17] MEDS: INSULIN SLIDING SCALE (NOVOLOG) 1 VIAL SQ SCH ×4 (06:07→22:52)
[2022-08-17] MEDS: metFORMIN HCL 500 MG TABLET (FP) PO SCH ×2 (06:07→17:35)
[2022-08-17 09:16] LABS: BASO % 1.3 % (0-2.0); EOS % 1.9 % (0-4.5); HEMATOCRIT 36.9 % (35.4-49); HEMOGLOBIN 12.1 GM/dL (11.7-16.9); LYMPH % 36.8 % (8-40); MCHC 32.9 g/dl (32.0-35.9); MEAN CELL VOLUME 78.9 fl (80-96); MEAN PLT VOLUME 10.4 fl (7.5-11.1); PLATELET COUNT 114 10^3/uL (134-434); RBC 4.67 M/mm3 (4.00-5.60); RDW 15.4 % (11.9-15.9); WHITE BLOOD COUNT 6.8 K/mm3 (4.0-10.0)
[2022-08-17 09:48] LABS: BLOOD UREA NITROGEN 14.6 mg/dL (7-18)
[2022-08-17 09:52] LABS: CREATININE 0.9 mg/dL (0.55-1.3)
[2022-08-17 09:53] LABS: BILIRUBIN,TOTAL 0.8 mg/dL (0.2-1); TOT PROT 6.2 g/dl (6.4-8.2)
[2022-08-17] MEDS ORDERED: GENTAMICIN SO4 80 MG/2 ML VIAL ONE (09:57)
[2022-08-17] MEDS ORDERED: LIDOCAINE HCL 1%, 10 MG/ML (10ML VIAL) MDV ONE (09:57)
[2022-08-17] MEDS ORDERED: BUPIVACAINE HCL/PF 0.5% (5MG/ML) 10 ML VIAL ONE (09:57)
[2022-08-17] MEDS ORDERED: MIDAZOLAM HCL 2 MG/2 ML SINGLE DOSE VIAL ONE (10:09)
[2022-08-17] MEDS ORDERED: BUPIVACAINE HCL/PF 0.5% (5MG/ML) 10 ML VIAL IJ ONE ×3 (10:16)
[2022-08-17] MEDS ORDERED: LIDOCAINE HCL 1%, 10 MG/ML (50 mL VIAL) INF ONE ×3 (10:16)
[2022-08-17] MEDS ORDERED: FENTANYL CITRATE/PF 50 MCG/ML VIAL IVPUSH PRN (10:39)
[2022-08-17] MEDS ORDERED: SODIUM CHLORIDE 0.45% 1,000 ML IV SCH (10:50)
[2022-08-17 11:42] LABS: BASO % 1.3 % (0-2.0); EOS % 1.6 % (0-4.5); HEMATOCRIT 34.9 % (35.4-49); HEMOGLOBIN 11.5 GM/dL (11.7-16.9); LYMPH % 37.1 % (8-40); MCHC 32.9 g/dl (32.0-35.9); MEAN PLT VOLUME 10.7 fl (7.5-11.1); MONO % 8.9 % (3.8-10.2); NEUT % 51.1 % (42.8-82.8); PLATELET COUNT 105 10^3/uL (134-434); RBC 4.41 M/mm3 (4.00-5.60); RDW 15.2 % (11.9-15.9); WHITE BLOOD COUNT 6.6 K/mm3 (4.0-10.0)
[2022-08-17] MEDS: ENOXAPARIN NA (PORCINE) 40 MG/0.4 ML DISP.SYRIN SQ SCH ×2 (12:59→20:18)
[2022-08-17] MEDS ORDERED: INSULIN (NOVOLOG) ASPART 100 UNITS/ML 10ML VIAL ONE ×2 (13:14→17:43)
[2022-08-17] MEDS ORDERED: CEFTRIAXONE 1 GM in DEXTROSE 5%-WATER 100 ML IVPB SCH (15:15)
[2022-08-17] MEDS: CEFTRIAXONE 2 GM in DEXTROSE 5%-WATER 100 ML IVPB SCH (17:36)
[2022-08-17] MEDS: PREGABALIN 50 MG CAPSULE PO SCH ×2 (20:18→22:53)
[2022-08-17] MEDS: ASPIRIN 81 MG CHEWABLE TABLETS PO SCH (20:18)
[2022-08-17] MEDS: FAMOTIDINE 20 MG TABLET PO SCH (20:19)
[2022-08-17] MEDS: CLOPIDOGREL BISULFATE 75 MG TABLET (FP) PO SCH (20:19)
[2022-08-17] MEDS: ATORVASTATIN CA 40 MG TABLET (FP) PO SCH (22:53)
[2022-08-18] MEDS: INSULIN SLIDING SCALE (NOVOLOG) 1 VIAL SQ SCH ×4 (06:21→21:55)
[2022-08-18] MEDS: metFORMIN HCL 500 MG TABLET (FP) PO SCH ×2 (06:21→17:48)
[2022-08-18] MEDS ORDERED: INSULIN (LEVEMIR) 100 UNITS/ML UNITS SQ ONE (06:30)
[2022-08-18] MEDS ORDERED: INSULIN (NOVOLOG) ASPART 100 UNITS/ML 10ML VIAL ONE ×3 (06:30→21:54)
[2022-08-18] MEDS: PREGABALIN 50 MG CAPSULE PO SCH (09:26)
[2022-08-18] MEDS: CLOPIDOGREL BISULFATE 75 MG TABLET (FP) PO SCH (09:26)
[2022-08-18] MEDS: ASPIRIN 81 MG CHEWABLE TABLETS PO SCH (09:26)
[2022-08-18] MEDS: CEFTRIAXONE 2 GM in DEXTROSE 5%-WATER 100 ML IVPB SCH (09:26)
[2022-08-18] MEDS: FAMOTIDINE 20 MG TABLET PO SCH (09:26)
[2022-08-18] MEDS: ENOXAPARIN NA (PORCINE) 40 MG/0.4 ML DISP.SYRIN SQ SCH (09:27)
[2022-08-18] MEDS ORDERED: ACETAMINOPHEN 1000 MG/100 ML BAG IVPB PRN (12:31)
[2022-08-18] MEDS: COLLAGENASE CLOSTRIDIUM HIST. 30 GRAMS TUBE TP SCH (15:16)
[2022-08-18] MEDS: ATORVASTATIN CA 40 MG TABLET (FP) PO SCH (21:48)
[2022-08-18] MEDS: PREGABALIN 75 MG CAPSULE PO SCH (21:49)
[2022-08-19] MEDS: metFORMIN HCL 500 MG TABLET (FP) PO SCH ×2 (06:05→15:40)
[2022-08-19] MEDS: INSULIN SLIDING SCALE (NOVOLOG) 1 VIAL SQ SCH ×4 (06:08→21:27)
[2022-08-19] MEDS: CLOPIDOGREL BISULFATE 75 MG TABLET (FP) PO SCH (09:43)
[2022-08-19] MEDS: ASPIRIN 81 MG CHEWABLE TABLETS PO SCH (09:43)
[2022-08-19] MEDS: ENOXAPARIN NA (PORCINE) 40 MG/0.4 ML DISP.SYRIN SQ SCH (09:43)
[2022-08-19] MEDS: FAMOTIDINE 20 MG TABLET PO SCH (09:43)
[2022-08-19] MEDS: PREGABALIN 75 MG CAPSULE PO SCH ×2 (09:44→21:25)
[2022-08-19] MEDS: CEFTRIAXONE 2 GM in DEXTROSE 5%-WATER 100 ML IVPB SCH (09:49)
[2022-08-19] MEDS: COLLAGENASE CLOSTRIDIUM HIST. 30 GRAMS TUBE TP SCH (11:00)
[2022-08-19] MEDS ORDERED: INSULIN (NOVOLOG) ASPART 100 UNITS/ML 10ML VIAL ONE ×3 (11:04→21:20)
[2022-08-19] MEDS: ATORVASTATIN CA 40 MG TABLET (FP) PO SCH (21:25)
[2022-08-20] MEDS: metFORMIN HCL 500 MG TABLET (FP) PO SCH ×2 (06:05→17:18)
[2022-08-20] MEDS: INSULIN SLIDING SCALE (NOVOLOG) 1 VIAL SQ SCH ×4 (06:05→22:21)
[2022-08-20] MEDS ORDERED: INSULIN (NOVOLOG) ASPART 100 UNITS/ML 10ML VIAL ONE ×4 (06:52→22:19)
[2022-08-20] MEDS: PREGABALIN 75 MG CAPSULE PO SCH ×2 (10:04→22:14)
[2022-08-20] MEDS: CLOPIDOGREL BISULFATE 75 MG TABLET (FP) PO SCH (10:04)
[2022-08-20] MEDS: FAMOTIDINE 20 MG TABLET PO SCH (10:04)
[2022-08-20] MEDS: ASPIRIN 81 MG CHEWABLE TABLETS PO SCH (10:04)
[2022-08-20] MEDS: ENOXAPARIN NA (PORCINE) 40 MG/0.4 ML DISP.SYRIN SQ SCH (10:04)
[2022-08-20] MEDS: CEFTRIAXONE 2 GM in DEXTROSE 5%-WATER 100 ML IVPB SCH (10:04)
[2022-08-20] MEDS: COLLAGENASE CLOSTRIDIUM HIST. 30 GRAMS TUBE TP SCH (10:05)
[2022-08-20] MEDS: ATORVASTATIN CA 40 MG TABLET (FP) PO SCH (22:14)
[2022-08-21] MEDS: ACETAMINOPHEN 1000 MG/100 ML BAG IVPB PRN ×2 (00:19→21:39)
[2022-08-21] MEDS: metFORMIN HCL 500 MG TABLET (FP) PO SCH ×2 (06:48→16:19)
[2022-08-21] MEDS: INSULIN SLIDING SCALE (NOVOLOG) 1 VIAL SQ SCH ×4 (06:48→21:29)
[2022-08-21] MEDS: ENOXAPARIN NA (PORCINE) 40 MG/0.4 ML DISP.SYRIN SQ SCH (09:02)
[2022-08-21] MEDS: CLOPIDOGREL BISULFATE 75 MG TABLET (FP) PO SCH (09:02)
[2022-08-21] MEDS: CEFTRIAXONE 2 GM in DEXTROSE 5%-WATER 100 ML IVPB SCH (09:03)
[2022-08-21] MEDS: FAMOTIDINE 20 MG TABLET PO SCH (09:03)
[2022-08-21] MEDS: PREGABALIN 75 MG CAPSULE PO SCH ×2 (09:03→21:29)
[2022-08-21] MEDS: COLLAGENASE CLOSTRIDIUM HIST. 30 GRAMS TUBE TP SCH (09:03)
[2022-08-21] MEDS: ASPIRIN 81 MG CHEWABLE TABLETS PO SCH (09:03)
[2022-08-21 10:51] LABS: BASO % 1.1 % (0-2.0); EOS % 2.1 % (0-4.5); HEMATOCRIT 34.5 % (35.4-49); HEMOGLOBIN 11.4 GM/dL (11.7-16.9); LYMPH % 37.8 % (8-40); MCH 25.9 pg (25.7-33.7); MCHC 33.1 g/dl (32.0-35.9); MEAN CELL VOLUME 78.4 fl (80-96); MEAN PLT VOLUME 10.7 fl (7.5-11.1); MONO % 9.2 % (3.8-10.2); NEUT % 49.8 % (42.8-82.8); PLATELET COUNT 73 10^3/uL (134-434); RDW 15.4 % (11.9-15.9); WHITE BLOOD COUNT 6.3 K/mm3 (4.0-10.0)
[2022-08-21 11:07] LABS: CALCIUM 8.6 mg/dL (8.5-10.1)
[2022-08-21 11:11] LABS: ALBUMIN 2.8 g/dl (3.4-5.0); CREATININE 0.9 mg/dL (0.55-1.3)
[2022-08-21 11:12] LABS: BILIRUBIN,TOTAL 0.2 mg/dL (0.2-1)
[2022-08-21 11:13] LABS: TOT PROT 5.8 g/dl (6.4-8.2)
[2022-08-21 12:01] LABS: EPI CELLS 1 /uL (0-25.1); HYALINE CASTS 0 /uL (0-3.1); PH,URINE 6.5 (5.0-8.0); URINE APPEARANCE CLOUDY; URINE BACTERIA 22 /uL (0-1359); URINE BILIRUBIN NEGATIVE (NEGATIVE); URINE COLOR YELLOW; URINE GLUCOSE (UA) TRACE (NEGATIVE); URINE KETONE NEGATIVE (NEGATIVE); URINE LEUK ESTERASE NEGATIVE (NEGATIVE); URINE NITRITE NEGATIVE (NEGATIVE); URINE PROTEIN 1+ (NEGATIVE); URINE RBC 3 /uL (0-23.9); URINE UROBILINOGEN 0.2 mg/dL (0.2-1.0); URINE WBC 1 /uL (0-25.8)
[2022-08-21] MEDS: VANCOMYCIN PREMIX 1.5 GM 1,500 MG/300 ML BAG IVPB SCH (12:24)
[2022-08-21] MEDS ORDERED: INSULIN (NOVOLOG) ASPART 100 UNITS/ML 10ML VIAL ONE ×2 (16:40→21:23)
[2022-08-21] MEDS: ATORVASTATIN CA 40 MG TABLET (FP) PO SCH (21:29)
[2022-08-22] MEDS: metFORMIN HCL 500 MG TABLET (FP) PO SCH ×2 (06:18→17:18)
[2022-08-22] MEDS: INSULIN SLIDING SCALE (NOVOLOG) 1 VIAL SQ SCH ×4 (06:18→21:54)
[2022-08-22] MEDS: CEFTRIAXONE 2 GM in DEXTROSE 5%-WATER 100 ML IVPB SCH (09:06)
[2022-08-22] MEDS: ENOXAPARIN NA (PORCINE) 40 MG/0.4 ML DISP.SYRIN SQ SCH (09:06)
[2022-08-22] MEDS: COLLAGENASE CLOSTRIDIUM HIST. 30 GRAMS TUBE TP SCH (09:07)
[2022-08-22] MEDS: ASPIRIN 81 MG CHEWABLE TABLETS PO SCH (09:07)
[2022-08-22] MEDS: FAMOTIDINE 20 MG TABLET PO SCH (09:07)
[2022-08-22] MEDS: CLOPIDOGREL BISULFATE 75 MG TABLET (FP) PO SCH (09:07)
[2022-08-22] MEDS: PREGABALIN 75 MG CAPSULE PO SCH ×2 (09:07→21:47)
[2022-08-22] MEDS ORDERED: INSULIN (NOVOLOG) ASPART 100 UNITS/ML 10ML VIAL ONE (11:16)
[2022-08-22] MEDS: VANCOMYCIN PREMIX 1.5 GM 1,500 MG/300 ML BAG IVPB SCH (12:07)
[2022-08-22] MEDS ORDERED: ACETAMINOPHEN 1000 MG/100 ML BAG IVPB PRN (21:12)
[2022-08-22] MEDS: ATORVASTATIN CA 40 MG TABLET (FP) PO SCH (21:47)
[2022-08-23 03:07] VITALS: RESP 18
[2022-08-23] MEDS: metFORMIN HCL 500 MG TABLET (FP) PO SCH ×2 (06:22→17:04)
[2022-08-23] MEDS: INSULIN SLIDING SCALE (NOVOLOG) 1 VIAL SQ SCH ×4 (06:22→21:15)
[2022-08-23] MEDS: ASPIRIN 81 MG CHEWABLE TABLETS PO SCH (09:12)
[2022-08-23] MEDS: CLOPIDOGREL BISULFATE 75 MG TABLET (FP) PO SCH (09:12)
[2022-08-23] MEDS: PREGABALIN 75 MG CAPSULE PO SCH ×2 (09:12→21:11)
[2022-08-23] MEDS: FAMOTIDINE 20 MG TABLET PO SCH (09:12)
[2022-08-23 10:07] LABS: BASO % 1.1 % (0-2.0); EOS % 1.7 % (0-4.5); HEMATOCRIT 40.1 % (35.4-49); HEMOGLOBIN 13.2 GM/dL (11.7-16.9); LYMPH % 40.8 % (8-40); MCH 26.2 pg (25.7-33.7); MCHC 32.9 g/dl (32.0-35.9); MEAN CELL VOLUME 79.4 fl (80-96); MEAN PLT VOLUME 10.9 fl (7.5-11.1); MONO % 8.6 % (3.8-10.2); NEUT % 47.8 % (42.8-82.8); PLATELET COUNT 88 10^3/uL (134-434); RBC 5.05 M/mm3 (4.00-5.60); RDW 15.5 % (11.9-15.9)
[2022-08-23 10:20] LABS: BLOOD UREA NITROGEN 25.9 mg/dL (7-18)
[2022-08-23 10:23] LABS: CREATININE 0.9 mg/dL (0.55-1.3)
[2022-08-23 10:24] LABS: BILIRUBIN,TOTAL 0.3 mg/dL (0.2-1); TOT PROT 6.8 g/dl (6.4-8.2)
[2022-08-23 10:39] LABS: ALBUMIN 3.5 g/dl (3.4-5.0)
[2022-08-23] MEDS: CEFTRIAXONE 2 GM in DEXTROSE 5%-WATER 100 ML IVPB SCH (11:16)
[2022-08-23] MEDS: ENOXAPARIN NA (PORCINE) 40 MG/0.4 ML DISP.SYRIN SQ SCH (11:21)
[2022-08-23] MEDS: COLLAGENASE CLOSTRIDIUM HIST. 30 GRAMS TUBE TP SCH (11:36)
[2022-08-23] MEDS ORDERED: INSULIN (NOVOLOG) ASPART 100 UNITS/ML 10ML VIAL ONE (11:38)
[2022-08-23] MEDS: VANCOMYCIN PREMIX 1.5 GM 1,500 MG/300 ML BAG IVPB SCH (14:47)
[2022-08-23] MEDS: ATORVASTATIN CA 40 MG TABLET (FP) PO SCH (21:11)
[2022-08-23 23:02] VITALS: PULSE 81
[2022-08-24 05:22] VITALS: BP 147/66; TEMP 98.3
[2022-08-24] MEDS: metFORMIN HCL 500 MG TABLET (FP) PO SCH (06:02)
[2022-08-24] MEDS: INSULIN SLIDING SCALE (NOVOLOG) 1 VIAL SQ SCH ×2 (06:02→12:04)
[2022-08-24] MEDS: PREGABALIN 75 MG CAPSULE PO SCH (10:31)
[2022-08-24] MEDS: CLOPIDOGREL BISULFATE 75 MG TABLET (FP) PO SCH (10:31)
[2022-08-24] MEDS: ENOXAPARIN NA (PORCINE) 40 MG/0.4 ML DISP.SYRIN SQ SCH (10:31)
[2022-08-24] MEDS: FAMOTIDINE 20 MG TABLET PO SCH (10:31)
[2022-08-24] MEDS: ASPIRIN 81 MG CHEWABLE TABLETS PO SCH (10:31)
[2022-08-24] MEDS: CEFTRIAXONE 2 GM in DEXTROSE 5%-WATER 100 ML IVPB SCH (10:31)
[2022-08-24] MEDS: COLLAGENASE CLOSTRIDIUM HIST. 30 GRAMS TUBE TP SCH (10:37)
[2022-08-24] MEDS: VANCOMYCIN PREMIX 1.5 GM 1,500 MG/300 ML BAG IVPB SCH (12:12)
== END 2022-08-24 15:14 | disposition home health service (06) | DRG 988 ==
LOC: JER 00:55 → JERBED 01:38 → J6S 15:16
PROVIDERS: ADMIT Internal Medicine; ATTEND Internal Medicine
PROC: 0HBMXZZ Excision of Right Foot Skin, External Approach (ICD-10-PCS; 2022-08-17)
PROC: 0Q9Q3ZX Drainage of Right Toe Phalanx, Percutaneous Approach, Diagnostic (ICD-10-PCS; principal; 2022-08-17 09:30)
PROC: 05HY33Z Insertion of Infusion Device into Upper Vein, Percutaneous Approach (ICD-10-PCS; 2022-08-23)
DX: E11.69 Type 2 diabetes mellitus with other specified complication (principal); L03.115 Cellulitis of right lower limb; M86.8X7 Other osteomyelitis, ankle and foot; E11.621 Type 2 diabetes mellitus with foot ulcer; E11.51 Type 2 diabetes mellitus with diabetic peripheral angiopathy without gangrene; I73.9 Peripheral vascular disease, unspecified; E78.5 Hyperlipidemia, unspecified; I10 Essential (primary) hypertension; N40.0 Benign prostatic hyperplasia without lower urinary tract symptoms; I25.10 Atherosclerotic heart disease of native coronary artery without angina pectoris
CPT/HCPCS: 36415; 36569; 73630-TC-RT-FY; 76775-TC; 80053; 81003; 82436; 82570; 82962; 84133; 84156; 84300; 85025; 85610; 85651; 85730; 86140; 86850; 86900; 86901; 87040; 87070; 87075; 87205; 93005; 93010; 94760; 99285-25; C9803-CS; G0480; U0003; U0005

== ENCOUNTER 2022-08-25 10:48 | Day surgery (SDC) | payer BC ==
[2022-08-25] MEDS ORDERED: CEFTRIAXONE 2 GM in SODIUM CHLORIDE 100 ML IVPB SCH (11:15)
[2022-08-25] MEDS ORDERED: VANCOMYCIN/WATER 1500 MG/300 ML PREMIXED BAG (RESTRICTED TO ID ONLY) IVPB SCH (11:30)
[2022-08-25 11:42] LABS: HEMATOCRIT 37.5 % (35.4-49); MCHC 31.9 g/dl (32.0-35.9); MEAN CELL VOLUME 81.4 fl (80-96); MEAN PLT VOLUME 13.1 fl (7.5-11.1); PLATELET COUNT 95.4 10^3/uL (134-434); RBC 4.61 10^6/uL (4.00-5.60); RDW 16.4 % (11.9-15.9); WHITE BLOOD COUNT 8.1 10^3/uL (4.0-10.8)
[2022-08-25 11:44] LABS: ANION GAP 6 MMOL/L (8-16); CALCIUM 8.9 mg/dl (8.5-10); CHLORIDE 106 mmol/L (98-107); CO2 24 mmol/L (21-32); GLUCOSE,RANDOM 288 mg/dl (74-106); SODIUM 136 mmol/L (136-145)
[2022-08-25 11:48] LABS: PLATELET ESTIMATE DECREASED
[2022-08-25 12:12] LABS: ERYTHROCYTE SEDIMENTATION RATE 18 mm/hr (0-20)
[2022-08-25 12:41] VITALS: RESP 18; TEMP 98.1
[2022-08-25 13:36] VITALS: BP 122/62; PULSE 76
== END 2022-08-25 13:37 | disposition home or self-care (01) ==
LOC: FINFUSION 10:48 → FM/S 10:49 → FINFUSION 13:37
PROVIDERS: ATTEND Internal Medicine Infectious Disease
DX: M86.9 Osteomyelitis, unspecified (principal)
CPT/HCPCS: 36415; 80048; 85027; 85651; 86140; 96365; 96366; 96367

== ENCOUNTER 2022-08-26 10:42 | Day surgery (SDC) | payer BC ==
[2022-08-26] MEDS ORDERED: CEFTRIAXONE 2 GM in DEXTROSE 5%-WATER 100 ML IVPB ONE (11:15)
[2022-08-26] MEDS ORDERED: VANCOMYCIN PREMIX 1.5 GM 1,500 MG/300 ML BAG IVPB ONE (11:30)
[2022-08-26 14:09] VITALS: BP 159/83; PULSE 84; RESP 18; TEMP 98.7
== END 2022-08-26 14:09 | disposition home or self-care (01) ==
LOC: FINFUSION 10:42 → FM/S 10:55 → FINFUSION 14:09
PROVIDERS: ATTEND Internal Medicine Infectious Disease
DX: M86.9 Osteomyelitis, unspecified (principal)
CPT/HCPCS: 96365; 96366; 96367

== ENCOUNTER 2022-08-27 10:41 | Day surgery (SDC) | payer BC ==
[2022-08-27] MEDS ORDERED: VANCOMYCIN/WATER 1500 MG/300 ML PREMIXED BAG (RESTRICTED TO ID ONLY) IVPB ONE (11:00)
[2022-08-27] MEDS ORDERED: CEFTRIAXONE 2 GM in SODIUM CHLORIDE 100 ML IVPB ONE (12:00)
[2022-08-27 13:24] VITALS: BP 130/84; PULSE 81; RESP 18; TEMP 98.1
== END 2022-08-27 13:24 | disposition home or self-care (01) ==
LOC: FM/S 10:41 → FINFUSION 10:41
PROVIDERS: ATTEND Internal Medicine Infectious Disease
DX: M86.9 Osteomyelitis, unspecified (principal)
CPT/HCPCS: 96365; 96366; 96367

== ENCOUNTER 2022-08-28 10:37 | Day surgery (SDC) | payer BC ==
[2022-08-28] MEDS ORDERED: CEFTRIAXONE 2 GM in SODIUM CHLORIDE 100 ML IVPB ONE (11:00)
[2022-08-28] MEDS ORDERED: VANCOMYCIN/WATER 1500 MG/300 ML PREMIXED BAG (RESTRICTED TO ID ONLY) IVPB ONE (11:30)
[2022-08-28 12:22] LABS: HEMATOCRIT 40.3 % (35.4-49); HEMOGLOBIN 13.3 G/dL (11.7-16.9); MCH 26.9 pg (25.7-33.7); MCHC 32.9 g/dl (32.0-35.9); MEAN PLT VOLUME 13.1 fl (7.5-11.1); PLATELET COUNT 109.5 10^3/uL (134-434); RBC 4.92 10^6/uL (4.00-5.60); RDW 16.3 % (11.9-15.9); WHITE BLOOD COUNT 8.4 10^3/uL (4.0-10.8)
[2022-08-28 12:55] LABS: CALCIUM 9.6 mg/dl (8.5-10); CREATININE 1.1 mg/dl (0.55-1.3)
[2022-08-28 13:17] LABS: ERYTHROCYTE SEDIMENTATION RATE 25 mm/hr (0-20)
[2022-08-28 19:22] VITALS: BP 140/58; PULSE 70; RESP 18; TEMP 98.5
== END 2022-08-28 15:58 | disposition home or self-care (01) ==
LOC: FINFUSION 10:37 → FM/S 10:38 → FINFUSION 15:58
PROVIDERS: ATTEND Internal Medicine Infectious Disease
DX: M76.9 Unspecified enthesopathy, lower limb, excluding foot (principal)
CPT/HCPCS: 36415; 80048; 85027; 85651; 86140; 96365; 96366; 96367

== ENCOUNTER 2022-08-29 10:26 | Day surgery (SDC) | payer BC ==
[2022-08-29] MEDS ORDERED: VANCOMYCIN PREMIX 1.5 GM 1,500 MG/300 ML BAG IVPB ONE (11:30)
[2022-08-29] MEDS ORDERED: CEFTRIAXONE 2 GM in SODIUM CHLORIDE 100 ML IVPB ONE (13:00)
[2022-08-29 13:03] VITALS: BP 147/66; PULSE 82; RESP 18; TEMP 98.1
== END 2022-08-29 13:30 | disposition home or self-care (01) ==
LOC: FM/S 10:26 → FINFUSION 10:26
PROVIDERS: ATTEND Internal Medicine Infectious Disease
DX: M86.9 Osteomyelitis, unspecified (principal)
CPT/HCPCS: 96365; 96367; G0480

== ENCOUNTER 2022-08-30 10:24 | Day surgery (SDC) | payer BC ==
[2022-08-30] MEDS ORDERED: VANCOMYCIN PREMIX 1.5 GM 1,500 MG/300 ML BAG IVPB ONE (11:00)
[2022-08-30] MEDS ORDERED: CEFTRIAXONE 2 GM in SODIUM CHLORIDE 100 ML IVPB ONE (12:30)
[2022-08-30 13:53] VITALS: BP 123/56; PULSE 85; RESP 18; TEMP 98.6
== END 2022-08-30 13:53 | disposition home or self-care (01) ==
LOC: FM/S 10:24 → FINFUSION 10:24
PROVIDERS: ATTEND Internal Medicine Infectious Disease
DX: M86.9 Osteomyelitis, unspecified (principal)
CPT/HCPCS: 96365; 96366; 96367

== ENCOUNTER 2022-08-31 10:12 | Day surgery (SDC) | payer BC ==
[2022-08-31] MEDS ORDERED: VANCOMYCIN PREMIX 1.5 GM 1,500 MG/300 ML BAG IVPB ONE (10:30)
[2022-08-31 10:48] VITALS: RESP 18; TEMP 98.6
[2022-08-31] MEDS ORDERED: CEFTRIAXONE 2 GM in SODIUM CHLORIDE 100 ML IVPB ONE (12:00)
[2022-08-31 12:05] VITALS: BP 138/62; PULSE 71
== END 2022-08-31 12:04 | disposition home or self-care (01) ==
LOC: FINFUSION 10:12 → FM/S 10:13 → FINFUSION 12:04
PROVIDERS: ATTEND Internal Medicine Infectious Disease
DX: M86.9 Osteomyelitis, unspecified (principal)
CPT/HCPCS: 96365; 96367

== ENCOUNTER 2022-09-01 10:06 | Day surgery (SDC) | payer BC ==
[2022-09-01] MEDS ORDERED: VANCOMYCIN/WATER 1500 MG/300 ML PREMIXED BAG (RESTRICTED TO ID ONLY) IVPB SCH (10:30)
[2022-09-01] MEDS ORDERED: CEFTRIAXONE 2 GM in SODIUM CHLORIDE 100 ML IVPB SCH (10:30)
[2022-09-01 12:29] VITALS: BP 105/56; PULSE 78; RESP 18; TEMP 98.6
== END 2022-09-01 12:52 | disposition home or self-care (01) ==
LOC: FINFUSION 10:06 → FM/S 10:08 → FINFUSION 12:52
PROVIDERS: ATTEND Internal Medicine Infectious Disease
DX: M86.9 Osteomyelitis, unspecified (principal)
CPT/HCPCS: 96365; 96366; 96367

== ENCOUNTER 2022-09-02 10:08 | Day surgery (SDC) | payer BC ==
[2022-09-02] MEDS ORDERED: CEFTRIAXONE 2 GM in DEXTROSE 5%-WATER 100 ML IVPB ONE (10:45)
[2022-09-02] MEDS ORDERED: VANCOMYCIN/WATER 1500 MG/300 ML PREMIXED BAG (RESTRICTED TO ID ONLY) IVPB ONE (10:45)
[2022-09-02 11:24] VITALS: RESP 18; TEMP 98.3
[2022-09-02 12:54] VITALS: BP 130/65; PULSE 64
== END 2022-09-02 12:55 | disposition home or self-care (01) ==
LOC: FINFUSION 10:08 → FM/S 10:19 → FINFUSION 12:55
PROVIDERS: ATTEND Internal Medicine Infectious Disease
DX: M86.9 Osteomyelitis, unspecified (principal)
CPT/HCPCS: 96365; 96366; 96367

== ENCOUNTER 2022-09-03 10:18 | Day surgery (SDC) | payer BC ==
[2022-09-03] MEDS ORDERED: VANCOMYCIN PREMIX 1.5 GM 1,500 MG/300 ML BAG IVPB ONE (10:30)
[2022-09-03 10:45] VITALS: RESP 18; TEMP 97.7
[2022-09-03] MEDS ORDERED: CEFTRIAXONE 2 GM in SODIUM CHLORIDE 100 ML IVPB ONE (12:00)
[2022-09-03 12:49] VITALS: BP 150/67; PULSE 71
== END 2022-09-03 12:49 | disposition home or self-care (01) ==
LOC: FINFUSION 10:18 → FM/S 10:19 → FINFUSION 12:49
PROVIDERS: ATTEND Internal Medicine Infectious Disease
DX: M86.9 Osteomyelitis, unspecified (principal)
CPT/HCPCS: 96365; 96367

== ENCOUNTER 2022-09-04 10:20 | Day surgery (SDC) | payer BC ==
[2022-09-04] MEDS ORDERED: VANCOMYCIN PREMIX 1.5 GM 1,500 MG/300 ML BAG IVPB ONE (10:30)
[2022-09-04] MEDS ORDERED: CEFTRIAXONE 2 GM in SODIUM CHLORIDE 100 ML IVPB ONE (12:00)
[2022-09-04 12:44] VITALS: BP 144/54; PULSE 72; RESP 18; TEMP 98.4
== END 2022-09-04 12:51 | disposition home or self-care (01) ==
LOC: FM/S 10:20 → FINFUSION 10:20
PROVIDERS: ATTEND Internal Medicine Infectious Disease
DX: M86.9 Osteomyelitis, unspecified (principal)
CPT/HCPCS: 96365; 96366; 96367

== ENCOUNTER 2022-09-05 10:12 | Day surgery (SDC) | payer BC ==
[2022-09-05] MEDS ORDERED: VANCOMYCIN PREMIX 1.5 GM 1,500 MG/300 ML BAG IVPB ONE (10:30)
[2022-09-05 10:47] LABS: HEMATOCRIT 40.6 % (35.4-49); HEMOGLOBIN 13.4 G/dL (11.7-16.9); MCH 27.1 pg (25.7-33.7); MCHC 33.1 g/dl (32.0-35.9); MEAN CELL VOLUME 81.9 fl (80-96); MEAN PLT VOLUME 12.6 fl (7.5-11.1); PLATELET COUNT 110.8 10^3/uL (134-434); RBC 4.96 10^6/uL (4.00-5.60); RDW 16.3 % (11.9-15.9); WHITE BLOOD COUNT 8.2 10^3/uL (4.0-10.8)
[2022-09-05 11:14] LABS: ANION GAP 9 MMOL/L (8-16); CALCIUM 9.6 mg/dl (8.5-10); CHLORIDE 103 mmol/L (98-107); CO2 24 mmol/L (21-32); CREATININE 1.1 mg/dl (0.55-1.3); GLUCOSE,RANDOM 268 mg/dl (74-106); SODIUM 136 mmol/L (136-145)
[2022-09-05 11:22] LABS: ERYTHROCYTE SEDIMENTATION RATE 18 mm/hr (0-20)
[2022-09-05] MEDS ORDERED: CEFTRIAXONE 2 GM in SODIUM CHLORIDE 100 ML IVPB ONE (12:00)
[2022-09-05 12:52] VITALS: BP 129/64; PULSE 70; RESP 18; TEMP 98.4
== END 2022-09-05 12:55 | disposition home or self-care (01) ==
LOC: FINFUSION 10:12 → FM/S 10:13 → FINFUSION 12:55
PROVIDERS: ATTEND Internal Medicine Infectious Disease
DX: M86.9 Osteomyelitis, unspecified (principal)
CPT/HCPCS: 36415; 80048; 85027; 85651; 86140; 96365; 96366; 96367

== ENCOUNTER 2022-09-06 10:01 | Day surgery (SDC) | payer BC ==
[2022-09-06 10:24] VITALS: BP 114/61; RESP 18; TEMP 98.6
[2022-09-06] MEDS ORDERED: VANCOMYCIN PREMIX 1.5 GM 1,500 MG/300 ML BAG IVPB ONE (10:30)
[2022-09-06] MEDS ORDERED: CEFTRIAXONE 2 GM in SODIUM CHLORIDE 100 ML IVPB ONE (12:00)
[2022-09-06 13:19] VITALS: PULSE 72
== END 2022-09-06 13:05 | disposition home or self-care (01) ==
LOC: FINFUSION 10:01 → FM/S 10:02 → FINFUSION 13:05
PROVIDERS: ATTEND Internal Medicine Infectious Disease
DX: M86.9 Osteomyelitis, unspecified (principal)
CPT/HCPCS: 96365; 96366; 96367

== ENCOUNTER 2022-09-07 10:13 | Day surgery (SDC) | payer BC ==
[2022-09-07] MEDS ORDERED: VANCOMYCIN PREMIX 1.5 GM 1,500 MG/300 ML BAG IVPB ONE (10:30)
[2022-09-07] MEDS ORDERED: CEFTRIAXONE 2 GM in SODIUM CHLORIDE 100 ML IVPB ONE (12:00)
[2022-09-07 13:12] VITALS: BP 125/62; PULSE 78; RESP 18; TEMP 98
== END 2022-09-07 13:12 | disposition home or self-care (01) ==
LOC: FINFUSION 10:13 → FM/S 10:13 → FINFUSION 13:12
PROVIDERS: ATTEND Internal Medicine Infectious Disease
DX: M86.9 Osteomyelitis, unspecified (principal)
CPT/HCPCS: 96365; 96366; 96367

== ENCOUNTER 2022-09-08 10:08 | Day surgery (SDC) | payer BC ==
[2022-09-08] MEDS ORDERED: CEFTRIAXONE 2 GM in SODIUM CHLORIDE 100 ML IVPB SCH (10:15)
[2022-09-08] MEDS ORDERED: VANCOMYCIN/WATER 1500 MG/300 ML PREMIXED BAG (RESTRICTED TO ID ONLY) IVPB SCH (10:30)
[2022-09-08 12:33] VITALS: BP 111/53; PULSE 68; RESP 15; TEMP 97.7
== END 2022-09-08 12:36 | disposition home or self-care (01) ==
LOC: FINFUSION 10:08 → FM/S 10:09 → FINFUSION 12:36
PROVIDERS: ATTEND Internal Medicine Infectious Disease
DX: M86.9 Osteomyelitis, unspecified (principal)
CPT/HCPCS: 96365; 96366; 96367

== ENCOUNTER 2022-09-09 10:11 | Day surgery (SDC) | payer BC ==
[2022-09-09] MEDS ORDERED: CEFTRIAXONE 2 GM in DEXTROSE 5%-WATER 100 ML IVPB ONE (10:30)
[2022-09-09] MEDS ORDERED: VANCOMYCIN PREMIX 1.5 GM 1,500 MG/300 ML BAG IVPB ONE (10:30)
[2022-09-09 13:10] VITALS: BP 136/60; PULSE 86; RESP 16; TEMP 98.6
== END 2022-09-09 13:11 | disposition home or self-care (01) ==
LOC: FINFUSION 10:11 → FM/S 10:19 → FINFUSION 13:11
PROVIDERS: ATTEND Internal Medicine Infectious Disease
DX: M86.9 Osteomyelitis, unspecified (principal)
CPT/HCPCS: 96365; 96366; 96367

== ENCOUNTER 2022-09-10 10:03 | Day surgery (SDC) | payer BC ==
[2022-09-10 10:25] VITALS: RESP 18; TEMP 98.7
[2022-09-10] MEDS ORDERED: VANCOMYCIN PREMIX 1.5 GM 1,500 MG/300 ML BAG IVPB ONE (10:30)
[2022-09-10] MEDS ORDERED: CEFTRIAXONE 2 GM in SODIUM CHLORIDE 100 ML IVPB ONE (12:00)
[2022-09-10 13:03] VITALS: BP 154/57; PULSE 75
== END 2022-09-10 13:04 | disposition home or self-care (01) ==
LOC: FINFUSION 10:03 → FM/S 10:03 → FINFUSION 13:04
PROVIDERS: ATTEND Internal Medicine Infectious Disease
DX: M86.9 Osteomyelitis, unspecified (principal)
CPT/HCPCS: 96365; 96366; 96367

== ENCOUNTER 2022-09-11 10:08 | Day surgery (SDC) | payer BC ==
[2022-09-11 10:29] VITALS: RESP 18; TEMP 98
[2022-09-11] MEDS ORDERED: VANCOMYCIN PREMIX 1.5 GM 1,500 MG/300 ML BAG IVPB ONE (10:30)
[2022-09-11] MEDS ORDERED: CEFTRIAXONE 2 GM in SODIUM CHLORIDE 100 ML IVPB ONE (12:00)
[2022-09-11 13:35] VITALS: BP 151/66; PULSE 75
== END 2022-09-11 13:44 | disposition home or self-care (01) ==
LOC: FINFUSION 10:08 → FM/S 10:09 → FINFUSION 13:44
PROVIDERS: ATTEND Internal Medicine Infectious Disease
DX: M86.9 Osteomyelitis, unspecified (principal)
CPT/HCPCS: 96365; 96366; 96367

== ENCOUNTER 2022-09-12 10:10 | Day surgery (SDC) | payer BC ==
[2022-09-12] MEDS ORDERED: VANCOMYCIN PREMIX 1.5 GM 1,500 MG/300 ML BAG IVPB ONE (10:30)
[2022-09-12] MEDS ORDERED: CEFTRIAXONE 2 GM in SODIUM CHLORIDE 100 ML IVPB ONE (12:00)
[2022-09-12 12:18] LABS: ANION GAP 9 MMOL/L (8-16); CALCIUM 9.2 mg/dl (8.5-10); CHLORIDE 102 mmol/L (98-107); CO2 23 mmol/L (21-32); CREATININE 1.1 mg/dl (0.55-1.3); GLUCOSE,RANDOM 280 mg/dl (74-106); POTASSIUM 5.5 mmol/L (3.5-5.1); SODIUM 134 mmol/L (136-145)
[2022-09-12 12:41] LABS: HEMATOCRIT 40.9 % (35.4-49); HEMOGLOBIN 13.3 G/dL (11.7-16.9); MCHC 32.6 g/dl (32.0-35.9); MEAN CELL VOLUME 82.9 fl (80-96); MEAN PLT VOLUME 12.5 fl (7.5-11.1); PLATELET COUNT 147.2 10^3/uL (134-434); RBC 4.93 10^6/uL (4.00-5.60); RDW 16.8 % (11.9-15.9); WHITE BLOOD COUNT 8.2 10^3/uL (4.0-10.8)
[2022-09-12 13:24] VITALS: BP 115/57; PULSE 84; RESP 19; TEMP 98.8
[2022-09-12 13:24] LABS: ERYTHROCYTE SEDIMENTATION RATE 19 mm/hr (0-20)
== END 2022-09-12 13:24 | disposition home or self-care (01) ==
LOC: FINFUSION 10:10 → FM/S 10:15 → FINFUSION 13:24
PROVIDERS: ATTEND Internal Medicine Infectious Disease
DX: M86.9 Osteomyelitis, unspecified (principal)
CPT/HCPCS: 36415; 80048; 85027; 85651; 86140; 96365; 96366; 96367

== ENCOUNTER 2022-09-13 10:00 | Day surgery (SDC) | payer BC ==
[2022-09-13] MEDS ORDERED: VANCOMYCIN PREMIX 1.5 GM 1,500 MG/300 ML BAG IVPB ONE (10:30)
[2022-09-13 11:56] VITALS: BP 130/57; PULSE 82; RESP 18; TEMP 98.7
[2022-09-13] MEDS ORDERED: CEFTRIAXONE 2 GM in SODIUM CHLORIDE 100 ML IVPB ONE (12:00)
== END 2022-09-13 11:32 | disposition home or self-care (01) ==
LOC: FINFUSION 10:00 → FM/S 10:01 → FINFUSION 11:32
PROVIDERS: ATTEND Internal Medicine Infectious Disease
DX: M86.9 Osteomyelitis, unspecified (principal)
CPT/HCPCS: 96365; 96367

== ENCOUNTER 2022-09-14 10:04 | Day surgery (SDC) | payer BC ==
[2022-09-14] MEDS ORDERED: VANCOMYCIN PREMIX 1.5 GM 1,500 MG/300 ML BAG IVPB ONE (10:30)
[2022-09-14] MEDS ORDERED: CEFTRIAXONE 2 GM in SODIUM CHLORIDE 100 ML IVPB ONE (12:00)
[2022-09-14 13:09] VITALS: BP 159/75; PULSE 82; RESP 18; TEMP 98.6
== END 2022-09-14 13:09 | disposition home or self-care (01) ==
LOC: FINFUSION 10:04 → FM/S 10:05 → FINFUSION 13:09
PROVIDERS: ATTEND Internal Medicine Infectious Disease
DX: M86.9 Osteomyelitis, unspecified (principal)
CPT/HCPCS: 96365; 96366; 96367

== ENCOUNTER 2022-09-15 10:05 | Day surgery (SDC) | payer BC ==
[2022-09-15] MEDS ORDERED: CEFTRIAXONE 2 GM in SODIUM CHLORIDE 100 ML IVPB SCH (10:30)
[2022-09-15] MEDS ORDERED: VANCOMYCIN/WATER 1500 MG/300 ML PREMIXED BAG (RESTRICTED TO ID ONLY) IVPB SCH (10:30)
[2022-09-15 11:14] VITALS: RESP 18; TEMP 98.9
[2022-09-15 13:44] VITALS: BP 155/70; PULSE 78
== END 2022-09-15 13:47 | disposition home or self-care (01) ==
LOC: FINFUSION 10:05 → FM/S 10:12 → FINFUSION 13:47
PROVIDERS: ATTEND Internal Medicine Infectious Disease
DX: M86.9 Osteomyelitis, unspecified (principal)
CPT/HCPCS: 96365; 96366; 96367

== ENCOUNTER 2022-09-16 10:04 | Day surgery (SDC) | payer BC ==
[2022-09-16 10:27] VITALS: RESP 15; TEMP 98.5
[2022-09-16] MEDS ORDERED: VANCOMYCIN PREMIX 1.5 GM 1,500 MG/300 ML BAG IVPB ONE (11:00)
[2022-09-16] MEDS ORDERED: CEFTRIAXONE 2 GM in DEXTROSE 5%-WATER 100 ML IVPB ONE (11:00)
[2022-09-16 12:41] VITALS: BP 140/60; PULSE 78
== END 2022-09-16 12:46 | disposition home or self-care (01) ==
LOC: FINFUSION 10:04 → FM/S 10:12 → FINFUSION 12:46
PROVIDERS: ATTEND Internal Medicine Infectious Disease
DX: M86.9 Osteomyelitis, unspecified (principal)
CPT/HCPCS: 96365; 96366; 96367

== ENCOUNTER 2022-09-17 10:14 | Day surgery (SDC) | payer BC ==
[2022-09-17] MEDS ORDERED: CEFTRIAXONE 2 GM in DEXTROSE 5%-WATER 100 ML IVPB ONE (10:30)
[2022-09-17] MEDS ORDERED: VANCOMYCIN PREMIX 1.5 GM 1,500 MG/300 ML BAG IVPB ONE (11:00)
[2022-09-17 13:36] VITALS: BP 125/70; PULSE 73; RESP 18; TEMP 98.5
== END 2022-09-17 13:37 | disposition home or self-care (01) ==
LOC: FINFUSION 10:14 → FM/S 10:15 → FINFUSION 13:37
PROVIDERS: ATTEND Internal Medicine Infectious Disease
DX: M86.9 Osteomyelitis, unspecified (principal)
CPT/HCPCS: 96365; 96366; 96367

== ENCOUNTER 2022-09-18 10:14 | Day surgery (SDC) | payer BC ==
[2022-09-18] MEDS ORDERED: CEFTRIAXONE 2 GM in SODIUM CHLORIDE 100 ML IVPB ONE (10:45)
[2022-09-18 10:46] VITALS: RESP 18; TEMP 98.3
[2022-09-18] MEDS ORDERED: VANCOMYCIN PREMIX 1.5 GM 1,500 MG/300 ML BAG IVPB ONE (12:00)
[2022-09-18 13:18] VITALS: BP 145/55; PULSE 73
== END 2022-09-18 13:22 | disposition home or self-care (01) ==
LOC: FINFUSION 10:14 → FM/S 10:15 → FINFUSION 13:22
PROVIDERS: ATTEND Internal Medicine Infectious Disease
DX: M86.9 Osteomyelitis, unspecified (principal)
CPT/HCPCS: 82962; 96365; 96366; 96367

== ENCOUNTER 2022-09-19 10:11 | Day surgery (SDC) | payer BC ==
[2022-09-19 10:50] LABS: ANION GAP 9 MMOL/L (8-16); CALCIUM 9.4 mg/dl (8.5-10); CHLORIDE 102 mmol/L (98-107); CO2 23 mmol/L (21-32); CREATININE 0.9 mg/dl (0.55-1.3); GLUCOSE,RANDOM 219 mg/dl (74-106); POTASSIUM 4.4 mmol/L (3.5-5.1); SODIUM 134 mmol/L (136-145)
[2022-09-19 10:52] LABS: HEMATOCRIT 44.7 % (35.4-49); HEMOGLOBIN 14.6 G/dL (11.7-16.9); MCH 26.8 pg (25.7-33.7); MCHC 32.6 g/dl (32.0-35.9); MEAN CELL VOLUME 82.4 fl (80-96); MEAN PLT VOLUME 12.3 fl (7.5-11.1); PLATELET COUNT 141.9 10^3/uL (134-434); RBC 5.42 10^6/uL (4.00-5.60); RDW 16.2 % (11.9-15.9); WHITE BLOOD COUNT 9.3 10^3/uL (4.0-10.8)
[2022-09-19] MEDS ORDERED: CEFTRIAXONE 2 GM in DEXTROSE 5%-WATER 100 ML IVPB ONE (11:00)
[2022-09-19] MEDS ORDERED: CEFTRIAXONE 2 GM in SODIUM CHLORIDE 100 ML IVPB ONE (11:00)
[2022-09-19] MEDS ORDERED: VANCOMYCIN PREMIX 1.5 GM 1,500 MG/300 ML BAG IVPB ONE (11:00)
[2022-09-19 11:34] LABS: ERYTHROCYTE SEDIMENTATION RATE 12 mm/hr (0-20)
[2022-09-19 12:20] VITALS: TEMP 97.6
[2022-09-19 12:42] VITALS: BP 132/64; PULSE 87; RESP 19
== END 2022-09-19 12:42 | disposition home or self-care (01) ==
LOC: FM/S 10:11 → FINFUSION 10:11
PROVIDERS: ATTEND Internal Medicine Infectious Disease
DX: M86.9 Osteomyelitis, unspecified (principal)
CPT/HCPCS: 36415; 80048; 85027; 85651; 86140; 96365; 96366; 96367

== ENCOUNTER 2022-09-20 10:19 | Day surgery (SDC) | payer BC ==
[2022-09-20] MEDS ORDERED: CEFTRIAXONE 2 GM in DEXTROSE 5%-WATER 100 ML IVPB ONE (10:45)
[2022-09-20] MEDS ORDERED: VANCOMYCIN PREMIX 1.5 GM 1,500 MG/300 ML BAG IVPB ONE (11:30)
[2022-09-20 13:18] VITALS: BP 146/70; PULSE 74; RESP 18; TEMP 98.6
== END 2022-09-20 13:18 | disposition home or self-care (01) ==
LOC: FINFUSION 10:19 → FM/S 10:20 → FINFUSION 13:18
PROVIDERS: ATTEND Internal Medicine Infectious Disease
DX: M86.9 Osteomyelitis, unspecified (principal)
CPT/HCPCS: 96365; 96366; 96367

== ENCOUNTER 2022-09-21 10:12 | Day surgery (SDC) | payer BC ==
[2022-09-21] MEDS ORDERED: CEFTRIAXONE 2 GM in DEXTROSE 5%-WATER 100 ML IVPB ONE (10:45)
[2022-09-21] MEDS ORDERED: VANCOMYCIN PREMIX 1.5 GM 1,500 MG/300 ML BAG IVPB ONE (11:00)
[2022-09-21 14:00] VITALS: BP 135/82; PULSE 75; RESP 18; TEMP 98.4
== END 2022-09-21 14:01 | disposition home or self-care (01) ==
LOC: FINFUSION 10:12 → FM/S 10:13 → FINFUSION 14:01
PROVIDERS: ATTEND Internal Medicine Infectious Disease
DX: M86.9 Osteomyelitis, unspecified (principal)
CPT/HCPCS: 96365; 96366; 96367

== ENCOUNTER 2022-09-22 10:13 | Day surgery (SDC) | payer BC ==
[2022-09-22] MEDS ORDERED: VANCOMYCIN/WATER 1500 MG/300 ML PREMIXED BAG (RESTRICTED TO ID ONLY) IVPB SCH (10:30)
[2022-09-22] MEDS ORDERED: CEFTRIAXONE 2 GM in SODIUM CHLORIDE 100 ML IVPB SCH (10:30)
[2022-09-22 13:22] VITALS: BP 137/64; PULSE 63; RESP 17; TEMP 98.1
== END 2022-09-22 13:33 | disposition home or self-care (01) ==
LOC: FINFUSION 10:13 → FM/S 10:17 → FINFUSION 13:33
PROVIDERS: ATTEND Internal Medicine Infectious Disease
DX: M86.9 Osteomyelitis, unspecified (principal)
CPT/HCPCS: 96365; 96366; 96367

== ENCOUNTER 2022-09-23 10:27 | Day surgery (SDC) | payer BC ==
[2022-09-23] MEDS ORDERED: CEFTRIAXONE 2 GM in DEXTROSE 5%-WATER 100 ML IVPB ONE (11:00)
[2022-09-23] MEDS ORDERED: VANCOMYCIN PREMIX 1.5 GM 1,500 MG/300 ML BAG IVPB ONE (11:00)
[2022-09-23 13:37] VITALS: BP 157/72; PULSE 77; RESP 18; TEMP 98.5
== END 2022-09-23 13:37 | disposition home or self-care (01) ==
LOC: FINFUSION 10:27 → FM/S 10:39 → FINFUSION 13:37
PROVIDERS: ATTEND Internal Medicine Infectious Disease
DX: M86.9 Osteomyelitis, unspecified (principal)
CPT/HCPCS: 96365; 96366; 96367

== ENCOUNTER 2022-09-24 10:11 | Day surgery (SDC) | payer BC ==
[2022-09-24] MEDS ORDERED: VANCOMYCIN PREMIX 1.5 GM 1,500 MG/300 ML BAG IVPB ONE (10:30)
[2022-09-24] MEDS ORDERED: CEFTRIAXONE 2 GM in DEXTROSE 5%-WATER 100 ML IVPB ONE (10:30)
[2022-09-24 13:43] VITALS: BP 143/70; PULSE 68; RESP 18; TEMP 98.1
== END 2022-09-24 14:38 | disposition home or self-care (01) ==
LOC: FINFUSION 10:11 → FM/S 10:12 → FINFUSION 14:38
PROVIDERS: ATTEND Internal Medicine Infectious Disease
DX: M86.9 Osteomyelitis, unspecified (principal)
CPT/HCPCS: 96365; 96366; 96367

== ENCOUNTER 2022-09-25 10:23 | Day surgery (SDC) | payer BC ==
[2022-09-25] MEDS ORDERED: CEFTRIAXONE 2 GM in DEXTROSE 5%-WATER 100 ML IVPB ONE (10:45)
[2022-09-25] MEDS ORDERED: VANCOMYCIN PREMIX 1.5 GM 1,500 MG/300 ML BAG IVPB ONE (11:00)
[2022-09-25 13:38] VITALS: BP 156/64; PULSE 80; RESP 18; TEMP 98.5
== END 2022-09-25 14:43 | disposition home or self-care (01) ==
LOC: FINFUSION 10:23 → FM/S 10:24 → FINFUSION 14:43
PROVIDERS: ATTEND Internal Medicine Infectious Disease
DX: M86.9 Osteomyelitis, unspecified (principal)
CPT/HCPCS: 96365; 96366; 96367

== ENCOUNTER 2022-09-26 10:27 | Day surgery (SDC) | payer BC ==
[2022-09-26] MEDS ORDERED: CEFTRIAXONE 2 GM in DEXTROSE 5%-WATER 100 ML IVPB ONE (11:15)
[2022-09-26] MEDS ORDERED: VANCOMYCIN PREMIX 1.5 GM 1,500 MG/300 ML BAG IVPB ONE (11:30)
[2022-09-26 11:58] LABS: HEMATOCRIT 41.7 % (35.4-49); HEMOGLOBIN 13.4 G/dL (11.7-16.9); MCH 26.8 pg (25.7-33.7); MCHC 32.2 g/dl (32.0-35.9); MEAN PLT VOLUME 12.4 fl (7.5-11.1); PLATELET COUNT 110.9 10^3/uL (134-434); RBC 5.02 10^6/uL (4.00-5.60); RDW 16.5 % (11.9-15.9); WHITE BLOOD COUNT 8.3 10^3/uL (4.0-10.8)
[2022-09-26 12:06] LABS: ANION GAP 3 MMOL/L (8-16); CHLORIDE 108 mmol/L (98-107); CO2 24 mmol/L (21-32); GLUCOSE,RANDOM 233 mg/dl (74-106); SODIUM 135 mmol/L (136-145)
[2022-09-26 12:42] LABS: ERYTHROCYTE SEDIMENTATION RATE 12 mm/hr (0-20)
[2022-09-26 13:56] VITALS: BP 138/60; PULSE 70; RESP 17; TEMP 98.4
== END 2022-09-26 13:57 | disposition home or self-care (01) ==
LOC: FINFUSION 10:27 → FM/S 10:28 → FINFUSION 13:57
PROVIDERS: ATTEND Internal Medicine Infectious Disease
DX: M86.9 Osteomyelitis, unspecified (principal)
CPT/HCPCS: 36415; 80048; 85027; 85651; 86140; 96365; 96366; 96367

== ENCOUNTER 2022-09-27 10:13 | Day surgery (SDC) | payer BC ==
[2022-09-27] MEDS ORDERED: CEFTRIAXONE 2 GM in DEXTROSE 5%-WATER 100 ML IVPB ONE (10:45)
[2022-09-27] MEDS ORDERED: VANCOMYCIN PREMIX 1.5 GM 1,500 MG/300 ML BAG IVPB ONE (11:15)
[2022-09-27 14:14] VITALS: BP 130/30; PULSE 72; RESP 18; TEMP 98.4
== END 2022-09-27 14:15 | disposition home or self-care (01) ==
LOC: FINFUSION 10:13 → FM/S 10:14 → FINFUSION 14:15
PROVIDERS: ATTEND Internal Medicine Infectious Disease
DX: M86.9 Osteomyelitis, unspecified (principal)
CPT/HCPCS: 96365; 96366; 96367

== ENCOUNTER 2022-09-28 10:13 | Day surgery (SDC) | payer BC ==
[2022-09-28] MEDS ORDERED: VANCOMYCIN/WATER 1500 MG/300 ML PREMIXED BAG (RESTRICTED TO ID ONLY) IVPB ONE (11:00)
[2022-09-28 13:33] VITALS: BP 132/71; PULSE 81; RESP 18; TEMP 98
== END 2022-09-28 13:34 | disposition home or self-care (01) ==
LOC: FINFUSION 10:13 → FM/S 10:18 → FINFUSION 13:34
PROVIDERS: ATTEND Internal Medicine Infectious Disease
DX: M86.9 Osteomyelitis, unspecified (principal)
CPT/HCPCS: 96365; 96366; 96367

== ENCOUNTER 2022-09-29 10:03 | Day surgery (SDC) | payer BC ==
[2022-09-29] MEDS ORDERED: VANCOMYCIN/WATER 1500 MG/300 ML PREMIXED BAG (RESTRICTED TO ID ONLY) IVPB SCH (10:30)
[2022-09-29] MEDS ORDERED: CEFTRIAXONE 2 GM in SODIUM CHLORIDE 100 ML IVPB SCH (10:30)
[2022-09-29 14:00] VITALS: BP 152/61; PULSE 64; RESP 18; TEMP 98.6
== END 2022-09-29 16:15 | disposition home or self-care (01) ==
LOC: FINFUSION 10:03 → FM/S 10:06 → FINFUSION 16:15
PROVIDERS: ATTEND Internal Medicine Infectious Disease
DX: M86.9 Osteomyelitis, unspecified (principal)
CPT/HCPCS: 96365; 96366; 96367

== ENCOUNTER 2022-10-15 15:29 | Inpatient (IN) | payer BC ==
[2022-10-15] MEDS ORDERED: PIPERACILLIN/TAZOB 4.5 GM 4.5 GM in DEXTROSE 5%-WATER 100 ML IVPB ONE (16:37)
[2022-10-15] MEDS ORDERED: PIPERACILLIN/TAZOB 4.5 GM 4.5 GM/100 ML BAG IVPB ONE (16:43)
[2022-10-15 17:54] LABS: BASO % 0.9 % (0-2.0); EOS % 1.5 % (0-4.5); HEMATOCRIT 36.9 % (35.4-49); LYMPH % 27.2 % (8-40); MCH 25.8 pg (25.7-33.7); MCHC 32.6 g/dl (32.0-35.9); MEAN CELL VOLUME 79.2 fl (80-96); MONO % 8.5 % (3.8-10.2); NEUT % 61.9 % (42.8-82.8); PLATELET COUNT 93 10^3/uL (134-434); RBC 4.66 M/mm3 (4.00-5.60); RDW 15.3 % (11.9-15.9); WHITE BLOOD COUNT 7.7 K/mm3 (4.0-10.0)
[2022-10-15 18:01] LABS: INR 1.06 (0.83-1.09); PROTHROMBIN TIME (PATIENT) 12.3 SEC (9.7-13.0)
[2022-10-15 18:03] LABS: ACTIVATED PTT 30.3 SECONDS (25.2-36.5)
[2022-10-15 18:13] LABS: CHLORIDE 104 mmol/L (98-107); POTASSIUM 4.5 mmol/L (3.5-5.1); SODIUM 138 mmol/L (136-145)
[2022-10-15 18:15] LABS: BLOOD UREA NITROGEN 19.5 mg/dL (7-18); CALCIUM 8.8 mg/dL (8.5-10.1)
[2022-10-15 18:16] LABS: ALBUMIN 3.4 g/dl (3.4-5.0); ANION GAP 6 MMOL/L (8-16); CO2 28 mmol/L (21-32); GLUCOSE,RANDOM 339 mg/dL (74-106)
[2022-10-15 18:18] LABS: SGPT/ALT 19 U/L (13-61)
[2022-10-15 18:19] LABS: CREATININE 1.1 mg/dL (0.55-1.3); SGOT/AST 10 U/L (15-37)
[2022-10-15 18:20] LABS: TOT PROT 6.4 g/dl (6.4-8.2)
[2022-10-15 18:21] LABS: ALK PHOS 74 U/L (45-117)
[2022-10-15 18:26] LABS: BILIRUBIN,TOTAL 0.4 mg/dL (0.2-1)
[2022-10-15 19:56] LABS: ERYTHROCYTE SEDIMENTATION RATE 14 mm/hr (0-20)
[2022-10-15] MEDS ORDERED: ACETAMINOPHEN 1000 MG/100 ML BAG IVPB ONE (20:06)
[2022-10-15] MEDS ORDERED: ACETAMINOPHEN INJECTION 100 ML IVPB ONE (20:08)
[2022-10-15] MEDS ORDERED: ACETAMINOPHEN 1000 MG/100 ML BAG IVPB PRN (21:53)
[2022-10-16] MEDS: PIPERACILLIN/TAZOB 3.375 GM 3.375 GM in DEXTROSE 5%-WATER - 50 ML IVPB SCH ×4 (05:26→17:57)
[2022-10-16] MEDS: INSULIN (LEVEMIR) 100 UNITS/ML UNITS SQ SCH ×2 (06:14→21:53)
[2022-10-16] MEDS: INSULIN SLIDING SCALE (NOVOLOG) 1 VIAL SQ SCH ×5 (06:15→21:54)
[2022-10-16] MEDS: ATORVASTATIN CA 40 MG TABLET (FP) PO SCH ×2 (06:15→21:47)
[2022-10-16] MEDS: PREGABALIN 75 MG CAPSULE PO SCH ×3 (06:15→21:47)
[2022-10-16] MEDS: metFORMIN HCL 500 MG TABLET (FP) PO SCH ×2 (06:16→17:33)
[2022-10-16] MEDS ORDERED: INSULIN (NOVOLOG) ASPART 100 UNITS/ML 10ML VIAL ONE ×4 (07:30→21:24)
[2022-10-16 08:16] LABS: BASO % 1.3 % (0-2.0); EOS % 2.3 % (0-4.5); HEMOGLOBIN 11.8 GM/dL (11.7-16.9); LYMPH % 29.6 % (8-40); MCHC 32.7 g/dl (32.0-35.9); MEAN CELL VOLUME 79.5 fl (80-96); MEAN PLT VOLUME 11.1 fl (7.5-11.1); MONO % 11.3 % (3.8-10.2); NEUT % 55.5 % (42.8-82.8); PLATELET COUNT 87 10^3/uL (134-434); RBC 4.53 M/mm3 (4.00-5.60); RDW 15.3 % (11.9-15.9); WHITE BLOOD COUNT 6.3 K/mm3 (4.0-10.0)
[2022-10-16 08:37] LABS: POTASSIUM 4.4 mmol/L (3.5-5.1)
[2022-10-16 08:40] LABS: BLOOD UREA NITROGEN 24.4 mg/dL (7-18); CALCIUM 8.7 mg/dL (8.5-10.1)
[2022-10-16 08:44] LABS: CREATININE 1.1 mg/dL (0.55-1.3)
[2022-10-16 08:45] LABS: BILIRUBIN,TOTAL 0.3 mg/dL (0.2-1); TOT PROT 5.7 g/dl (6.4-8.2)
[2022-10-16] MEDS ORDERED: ENOXAPARIN NA (PORCINE) 40 MG/0.4 ML DISP.SYRIN SQ SCH (10:00)
[2022-10-16] MEDS ORDERED: COLLAGENASE CLOSTRIDIUM HIST. 30 GRAMS TUBE TP SCH (12:00)
[2022-10-16 16:32] VITALS: BMI 23.4
[2022-10-16] MEDS: AMOX TR/POT CLAV 875MG/125MG TABLETS (FP) PO SCH (17:33)
[2022-10-16] MEDS ORDERED: PIPERACILLIN/TAZOBACTAM 3.375 GM VIAL IVPB ONE (17:39)
[2022-10-17] MEDS: KETOROLAC TROMETHAMINE 10 MG TABLET PO SCH ×5 (07:07→23:00)
[2022-10-17] MEDS: INSULIN SLIDING SCALE (NOVOLOG) 1 VIAL SQ SCH ×4 (07:09→21:22)
[2022-10-17] MEDS: metFORMIN HCL 500 MG TABLET (FP) PO SCH ×2 (07:10→17:13)
[2022-10-17] MEDS: AMOX TR/POT CLAV 875MG/125MG TABLETS (FP) PO SCH ×2 (09:21→17:15)
[2022-10-17] MEDS: PREGABALIN 75 MG CAPSULE PO SCH ×2 (09:21→21:22)
[2022-10-17] MEDS ORDERED: INSULIN (NOVOLOG) ASPART 100 UNITS/ML 10ML VIAL ONE ×3 (11:53→21:02)
[2022-10-17] MEDS: INSULIN (LEVEMIR) 100 UNITS/ML UNITS SQ SCH (21:21)
[2022-10-17] MEDS: ATORVASTATIN CA 40 MG TABLET (FP) PO SCH (21:22)
[2022-10-18] MEDS: metFORMIN HCL 500 MG TABLET (FP) PO SCH ×2 (06:17→18:32)
[2022-10-18] MEDS: KETOROLAC TROMETHAMINE 10 MG TABLET PO SCH ×4 (06:17→23:13)
[2022-10-18] MEDS: INSULIN SLIDING SCALE (NOVOLOG) 1 VIAL SQ SCH ×4 (06:18→22:06)
[2022-10-18 09:23] LABS: PROTHROMBIN TIME (PATIENT) 11.6 SEC (9.7-13.0)
[2022-10-18 09:55] LABS: POTASSIUM 5.3 mmol/L (3.5-5.1)
[2022-10-18 09:58] LABS: BLOOD UREA NITROGEN 28.1 mg/dL (7-18); CALCIUM 8.6 mg/dL (8.5-10.1)
[2022-10-18 10:01] LABS: CREATININE 0.9 mg/dL (0.55-1.3)
[2022-10-18 10:03] LABS: BILIRUBIN,TOTAL 0.5 mg/dL (0.2-1); TOT PROT 5.6 g/dl (6.4-8.2)
[2022-10-18] MEDS: PREGABALIN 75 MG CAPSULE PO SCH ×2 (10:15→22:06)
[2022-10-18] MEDS: AMOX TR/POT CLAV 875MG/125MG TABLETS (FP) PO SCH ×2 (10:15→18:47)
[2022-10-18] MEDS ORDERED: DEXTROSE 5%-0.45% SALINE 1,000 ML IV SCH ×3 (11:30→16:45)
[2022-10-18] MEDS ORDERED: SODIUM ZIRCONIUM CYCLOSILICATE (LOKELMA) 5 GM PACKET PO SCH (14:45)
[2022-10-18] MEDS ORDERED: GENTAMICIN SO4 80 MG/2 ML VIAL ONE (15:19)
[2022-10-18] MEDS ORDERED: PROPOFOL 20 ML ONE (15:40)
[2022-10-18] MEDS ORDERED: MIDAZOLAM HCL 2 MG/2 ML SINGLE DOSE VIAL ONE (15:41)
[2022-10-18] MEDS ORDERED: LIDOCAINE HCL/PF 2% SDV 5ML VIAL ONE (15:48)
[2022-10-18] MEDS ORDERED: LIDOCAINE HCL 1%, 10 MG/ML (20ML VIAL) INF ONE (15:49)
[2022-10-18] MEDS ORDERED: BUPIVACAINE HCL/PF 0.5% (5 MG/ML) 30 ML VIAL IJ ONE (15:49)
[2022-10-18] MEDS ORDERED: BUPIVACAINE HCL/PF 0.5% (5MG/ML) 10 ML VIAL IJ ONE ×2 (16:25→16:27)
[2022-10-18] MEDS ORDERED: ONDANSETRON 4 MG/2 ML VIAL IVPUSH PRN ×2 (16:35→16:45)
[2022-10-18] MEDS ORDERED: LACTATED RINGERS SOLUTION 1,000 ML IV SCH ×2 (16:45)
[2022-10-18] MEDS ORDERED: LABETALOL HCL 20 MG/4 ML VIAL IVPUSH ONE (17:28)
[2022-10-18] MEDS ORDERED: LABETALOL HCL 20 MG/4 ML VIAL ONE (17:29)
[2022-10-18 17:34] LABS: BASO % 0.9 % (0-2.0); EOS % 1.9 % (0-4.5); HEMATOCRIT 36.7 % (35.4-49); HEMOGLOBIN 11.7 GM/dL (11.7-16.9); MCH 25.5 pg (25.7-33.7); MCHC 31.8 g/dl (32.0-35.9); MEAN CELL VOLUME 80.2 fl (80-96); MEAN PLT VOLUME 10.1 fl (7.5-11.1); MONO % 10.1 % (3.8-10.2); NEUT % 55.1 % (42.8-82.8); PLATELET COUNT 89 10^3/uL (134-434); RBC 4.58 M/mm3 (4.00-5.60); RDW 15.3 % (11.9-15.9); WHITE BLOOD COUNT 7.1 K/mm3 (4.0-10.0)
[2022-10-18] MEDS ORDERED: LABETALOL HCL 5 MG/1 ML (100MG/20 ML VIAL) IVPUSH ONE (17:51)
[2022-10-18] MEDS ORDERED: INSULIN (NOVOLOG) ASPART 100 UNITS/ML 10ML VIAL ONE (21:47)
[2022-10-18] MEDS ORDERED: INSULIN (LEVEMIR) 100 UNITS/ML UNITS SQ SCH (22:00)
[2022-10-18] MEDS: ATORVASTATIN CA 40 MG TABLET (FP) PO SCH (22:06)
[2022-10-18] MEDS: INSULIN (LEVEMIR) 100 UNITS/ML UNITS SQ SCH (22:07)
[2022-10-19] MEDS: metFORMIN HCL 500 MG TABLET (FP) PO SCH ×2 (06:51→16:51)
[2022-10-19] MEDS: INSULIN (LEVEMIR) 100 UNITS/ML UNITS SQ SCH ×2 (06:52→23:24)
[2022-10-19] MEDS: KETOROLAC TROMETHAMINE 10 MG TABLET PO SCH ×4 (06:52→23:32)
[2022-10-19] MEDS: INSULIN SLIDING SCALE (NOVOLOG) 1 VIAL SQ SCH ×4 (06:53→23:35)
[2022-10-19] MEDS: AMOX TR/POT CLAV 875MG/125MG TABLETS (FP) PO SCH ×2 (09:05→17:20)
[2022-10-19] MEDS: PREGABALIN 75 MG CAPSULE PO SCH ×2 (09:06→23:24)
[2022-10-19] MEDS ORDERED: SODIUM ZIRCONIUM CYCLOSILICATE (LOKELMA) 5 GM PACKET PO SCH (10:00)
[2022-10-19 13:32] LABS: HEMOGLOBIN 11.4 GM/dL (11.7-16.9); MCH 25.6 pg (25.7-33.7); MCHC 31.6 g/dl (32.0-35.9); PLATELET COUNT 95 10^3/uL (134-434); RBC 4.45 M/mm3 (4.00-5.60); WHITE BLOOD COUNT 9.3 K/mm3 (4.0-10.0)
[2022-10-19 13:51] LABS: POTASSIUM 4.8 mmol/L (3.5-5.1)
[2022-10-19 13:59] LABS: CALCIUM 8.7 mg/dL (8.5-10.1)
[2022-10-19 14:00] LABS: BLOOD UREA NITROGEN 31.5 mg/dL (7-18)
[2022-10-19 14:03] LABS: CREATININE 0.9 mg/dL (0.55-1.3)
[2022-10-19] MEDS ORDERED: INSULIN (NOVOLOG) ASPART 100 UNITS/ML 10ML VIAL ONE (20:52)
[2022-10-19] MEDS: ATORVASTATIN CA 40 MG TABLET (FP) PO SCH (23:24)
[2022-10-20] MEDS: metFORMIN HCL 500 MG TABLET (FP) PO SCH ×2 (06:13→16:50)
[2022-10-20] MEDS: INSULIN (LEVEMIR) 100 UNITS/ML UNITS SQ SCH ×2 (06:16→21:50)
[2022-10-20] MEDS: INSULIN SLIDING SCALE (NOVOLOG) 1 VIAL SQ SCH ×4 (06:20→21:50)
[2022-10-20 08:14] LABS: BASO % 0.9 % (0-2.0); EOS % 1.4 % (0-4.5); HEMATOCRIT 36.4 % (35.4-49); HEMOGLOBIN 11.4 GM/dL (11.7-16.9); LYMPH % 23.3 % (8-40); MCH 25.4 pg (25.7-33.7); MCHC 31.3 g/dl (32.0-35.9); MEAN CELL VOLUME 81.3 fl (80-96); MEAN PLT VOLUME 11.3 fl (7.5-11.1); MONO % 12.5 % (3.8-10.2); NEUT % 61.9 % (42.8-82.8); PLATELET COUNT 93 10^3/uL (134-434); RBC 4.48 M/mm3 (4.00-5.60); RDW 15.2 % (11.9-15.9); WHITE BLOOD COUNT 7.8 K/mm3 (4.0-10.0)
[2022-10-20] MEDS: AMOX TR/POT CLAV 875MG/125MG TABLETS (FP) PO SCH ×2 (08:19→17:08)
[2022-10-20] MEDS: PREGABALIN 75 MG CAPSULE PO SCH ×2 (09:15→21:48)
[2022-10-20] MEDS: ACETAMINOPHEN 1000 MG/100 ML BAG IVPB PRN ×2 (10:57→21:48)
[2022-10-20] MEDS ORDERED: INSULIN (NOVOLOG) ASPART 100 UNITS/ML 10ML VIAL ONE ×2 (16:47→21:15)
[2022-10-20] MEDS: ATORVASTATIN CA 40 MG TABLET (FP) PO SCH (21:48)
[2022-10-21] MEDS: INSULIN SLIDING SCALE (NOVOLOG) 1 VIAL SQ SCH ×4 (06:50→22:37)
[2022-10-21] MEDS: ACETAMINOPHEN 1000 MG/100 ML BAG IVPB PRN ×2 (06:50→22:37)
[2022-10-21] MEDS: metFORMIN HCL 500 MG TABLET (FP) PO SCH ×2 (06:50→17:10)
[2022-10-21] MEDS: INSULIN (LEVEMIR) 100 UNITS/ML UNITS SQ SCH ×2 (06:50→22:36)
[2022-10-21] MEDS: AMOX TR/POT CLAV 875MG/125MG TABLETS (FP) PO SCH (08:45)
[2022-10-21] MEDS: PREGABALIN 75 MG CAPSULE PO SCH ×2 (09:45→22:36)
[2022-10-21] MEDS ORDERED: CEFTRIAXONE 2 GM in DEXTROSE 5%-WATER 100 ML IVPB ONE (12:15)
[2022-10-21] MEDS: ATORVASTATIN CA 40 MG TABLET (FP) PO SCH (22:36)
[2022-10-22] MEDS: metFORMIN HCL 500 MG TABLET (FP) PO SCH ×2 (06:16→18:00)
[2022-10-22] MEDS: INSULIN (LEVEMIR) 100 UNITS/ML UNITS SQ SCH ×2 (06:16→21:30)
[2022-10-22] MEDS: INSULIN SLIDING SCALE (NOVOLOG) 1 VIAL SQ SCH ×4 (06:16→21:24)
[2022-10-22] MEDS: ACETAMINOPHEN 1000 MG/100 ML BAG IVPB PRN ×3 (06:17→22:30)
[2022-10-22 08:09] LABS: POTASSIUM 4.5 mmol/L (3.5-5.1)
[2022-10-22 08:17] LABS: BLOOD UREA NITROGEN 18.1 mg/dL (7-18); CALCIUM 8.5 mg/dL (8.5-10.1)
[2022-10-22 08:20] LABS: CREATININE 0.7 mg/dL (0.55-1.3)
[2022-10-22] MEDS: PREGABALIN 75 MG CAPSULE PO SCH ×2 (09:05→21:26)
[2022-10-22] MEDS ORDERED: KETOROLAC TROMETHAMINE 15 MG/ML VIAL IVPUSH ONE (10:30)
[2022-10-22] MEDS ORDERED: INSULIN (NOVOLOG) ASPART 100 UNITS/ML 10ML VIAL ONE (21:09)
[2022-10-22] MEDS: ATORVASTATIN CA 40 MG TABLET (FP) PO SCH (21:26)
[2022-10-23] MEDS: metFORMIN HCL 500 MG TABLET (FP) PO SCH ×2 (06:47→16:56)
[2022-10-23] MEDS: INSULIN (LEVEMIR) 100 UNITS/ML UNITS SQ SCH ×2 (06:48→22:13)
[2022-10-23] MEDS: INSULIN SLIDING SCALE (NOVOLOG) 1 VIAL SQ SCH ×4 (06:48→22:12)
[2022-10-23] MEDS: PREGABALIN 75 MG CAPSULE PO SCH ×2 (10:31→22:13)
[2022-10-23] MEDS: ACETAMINOPHEN 1000 MG/100 ML BAG IVPB PRN (10:36)
[2022-10-23] MEDS ORDERED: INSULIN (NOVOLOG) ASPART 100 UNITS/ML 10ML VIAL ONE ×2 (20:58→21:36)
[2022-10-23] MEDS: ATORVASTATIN CA 40 MG TABLET (FP) PO SCH (22:13)
[2022-10-24] MEDS: ACETAMINOPHEN 1000 MG/100 ML BAG IVPB PRN ×2 (02:44→22:51)
[2022-10-24] MEDS: metFORMIN HCL 500 MG TABLET (FP) PO SCH ×2 (06:00→16:37)
[2022-10-24] MEDS: INSULIN SLIDING SCALE (NOVOLOG) 1 VIAL SQ SCH ×4 (06:00→22:51)
[2022-10-24] MEDS: INSULIN (LEVEMIR) 100 UNITS/ML UNITS SQ SCH ×2 (06:03→22:51)
[2022-10-24] MEDS: PREGABALIN 75 MG CAPSULE PO SCH ×2 (10:28→22:50)
[2022-10-24 22:41] VITALS: RESP 20
[2022-10-24] MEDS: ATORVASTATIN CA 40 MG TABLET (FP) PO SCH (22:50)
[2022-10-25] MEDS ORDERED: levoFLOXacin 750 MG TABLET PO SCH (06:00)
[2022-10-25] MEDS: INSULIN (LEVEMIR) 100 UNITS/ML UNITS SQ SCH (06:01)
[2022-10-25] MEDS: INSULIN SLIDING SCALE (NOVOLOG) 1 VIAL SQ SCH ×2 (06:01→11:26)
[2022-10-25] MEDS: metFORMIN HCL 500 MG TABLET (FP) PO SCH (06:01)
[2022-10-25 08:44] LABS: POTASSIUM 4.6 mmol/L (3.5-5.1)
[2022-10-25 08:46] LABS: CALCIUM 8.9 mg/dL (8.5-10.1)
[2022-10-25 08:47] LABS: BLOOD UREA NITROGEN 20.6 mg/dL (7-18)
[2022-10-25 08:50] LABS: CREATININE 0.8 mg/dL (0.55-1.3)
[2022-10-25 08:51] LABS: BILIRUBIN,TOTAL 0.2 mg/dL (0.2-1); TOT PROT 5.8 g/dl (6.4-8.2)
[2022-10-25] MEDS: PREGABALIN 75 MG CAPSULE PO SCH (10:32)
[2022-10-25 10:34] VITALS: BP 150/78; PULSE 88; TEMP 98.4
[2022-10-25] MEDS ORDERED: INSULIN (NOVOLOG) ASPART 100 UNITS/ML 10ML VIAL ONE (11:34)
== END 2022-10-25 14:03 | disposition home health service (06) | DRG 617 ==
LOC: JER 15:29 → JERBED 18:25 → J7W 10-16 01:01
PROVIDERS: ADMIT Internal Medicine; ATTEND Internal Medicine
PROC: 0Y6P0Z0 Detachment at Right 1st Toe, Complete, Open Approach (ICD-10-PCS; principal; 2022-10-18 15:30)
DX: E11.69 Type 2 diabetes mellitus with other specified complication (principal); M86.9 Osteomyelitis, unspecified; E11.621 Type 2 diabetes mellitus with foot ulcer; I13.10 Hypertensive heart and chronic kidney disease without heart failure, with stage 1 through stage 4 chronic kidney disease, or unspecified chronic kidney disease; N40.0 Benign prostatic hyperplasia without lower urinary tract symptoms; E78.5 Hyperlipidemia, unspecified; I25.10 Atherosclerotic heart disease of native coronary artery without angina pectoris; L97.509 Non-pressure chronic ulcer of other part of unspecified foot with unspecified severity; E11.43 Type 2 diabetes mellitus with diabetic autonomic (poly)neuropathy; I73.9 Peripheral vascular disease, unspecified; E11.22 Type 2 diabetes mellitus with diabetic chronic kidney disease; E11.65 Type 2 diabetes mellitus with hyperglycemia
CPT/HCPCS: 36415; 71045-TC-FY; 73630-TC-RT-FY; 80048; 80053; 82962; 83036; 85025; 85027; 85610; 85651; 85730; 86140; 86850; 86900; 86901; 87040; 87070; 87075; 87186; 87205; 87635; 88305-TC; 88311-TC; 94760; 99285-25